=== PATIENT | male | born 1935 | race Caucasian/White ===

== ENCOUNTER → 2017-09-12 | Outpatient (CLI) | payer OTHER ==
[~2017-09-12] MED LIST: AMLO10TA3 PO; ASPI81TA28 PO; ATOR-24 PO; BILB40CA4 PO; BILB80CA PO; CALC1CAP36 PO; CARV3.122 PO; CHOL100027 PO; CRG125 PO; DOXY100C76 PO; FOLI1TAB8 PO; FURO40TA3 PO; INSU100I2 SC; INSU100I2 SQ; INSU3INJ3 SQ; INSU75IN2 SC; LSX40 PO; NRV/5 PO; SPIR25TA6 PO; VITA400C3 PO; VITACAP37 PO; WARF10TA PO; [UNRECOGNIZED DRUG - CODE] PO
--- NOTE | 2017-09-13 06:23 | PAP/PSG TECHNICIAN REPORT ---
[facility] Transportation Superintendent Polysomnogram Report Study name: None Report date: 09/13/2017 Study date: 09/12/2017 Referring Physician: Dr. Huber Name: MARIBEL BOLES Interpreting Physician: Don Campuzano M.D. Date of : 1935 Transportation Superintendent: Wendy Santos [facility]. Sex: Male Age: 82 Study Type: PSG PAP Weight: 270 lbs 18 in Height: 82 years, Height 5' 10" Neck Circum: BMI: 38.74 Medications: FUROSEMIDE 40 MG, CALCITRIOL 0.5 MCG, HUMALOG KWIKPEN 100 UNIT/ML, LEVEMIR 100 UNIT/ML, WARFARIN 10 MG, ATORVASTATIN 20 MG, COREG 6.25 MG, NORVASC 5 MG, ALDACTONE 25 MG, VIT D3 1000 UNIT, YELENA ASPIRIN 81 MG, BILBERRY 80 MG, VIT E 400 UNIT Patient History 82 yr-old male here for a BiPAP treatment study. He has a history of frequent awakenings, some insomnia, and is suspected to be having central apneas. His [place] scale is 3. The test was started on room air and 8/4 CMH2O (per the doctor's order). ETCO2 testing could not be utilized with BIPAP during this study. Room 5 Parameters Monitored NPSG: E1-M2, E2-M1, Fp1-M2, Fp2-M1, F3-M2, F4-M2, F4-M1, C3-M2, C4-M2, C4-M1, O1-M2, O2-M2, O2-M1, T3-M2, T4-M1, P3-M2, P4-M1, CHIN1, CHIN2, HR, EKG, Legs, PFLOW, SNOR, FLOW, CFLOW, Tidal Volume, THOR, ABDO, SpO2, PLTH, CPRESS, ETCO2 Wave, ETCO2, pH Sleep Architecture Sleep Stages Time at Lights Off 11:01:45 PM STAGES Time (min.) TST (%) Time at Lights On 5:29:45 AM Wake 130.0 -- Total Recording Time (TRT) 388.00 min. N1 57.5 22 Total Sleep Period (TSP) 383.5 min. N2 113.5 44 Total Sleep Time (TST) 258.0min. N3 45.0 17 Awake Time 130.0 min. REM 42.0 16 Wake after Sleep Onset 128.0 min. Sleep Efficiency (SE) 66 % Sleep Onset Latency (SALVATORE) 2.0 min. Number of Stage 1 Shifts None Awakenings 27 Stage Changes 106 Number of REM periods 2 REM 42.0 16 REM Latency 79.0 min. NREM 216.0 84 Body Position Analysis Supine Right Left Side Prone Vertical Total Sleep Time (min.) 140.0 182.5 0.0 182.52 0.0 0.0 Total Sleep Time (%) 29% 71% 0% 71 0% N/A% Total Sleep Time REM (min.) 0.0 42.0 0.0 None 0.0 0.0 Total Sleep Time NREM (min.) 75.5 140.5 0.0 None 0.0 0.0 Intermittent Wake (min.) 64.5 30.7 34.8 None 0.0 0.0 Total Sleep Period (%) 35% None None None None None Arousals Myoclonus (PLM) * Events Count Index Events Count Index Spontaneous 19 4 Events Awake (PLMW) 206 95.1 Respiratory 11 3.3 Events Asleep w/ Arousal (PLMA) 33 7.7 PLM 32 8 Events Asleep w/o Arousal (PLMS) 399 92.8 Snoring 4 1 Total Asleep 432 100.5 Total 66 15 Total 638 99 Respiratory Analysis * CA OA MA CH H RERA Total Count 12 6 0 0 13 2 31 Index 2.8 1.4 0.0 0 3.0 0 7.7 Mean Duration 11.1 17.4 0.0 0.00 20.1 18.1 16.2 Longest Duration 13.6 27.4 0.0 0.00 0.0 18.2 31.0 Respiratory Event Summary Total Supine ~Supine Right Left Prone REM NREM Apneas Count 18 12 6 6 N/A N/A 0 18 Index 4.2 10 2 2.0 N/A N/A 0 5 Hypopneas (4% Desat) Count 13 7 6 6 N/A N/A 0 13 Index 3.0 5.6 2 2.0 N/A N/A 0.0 3.6 Apneas & All Hypopneas Count 31 19 12 12 N/A N/A 0 31 Index 7.2 15 4 4 N/A N/A 0.0 8.6 Respiratory Events (Public Health Technologist+All Hyp+RERA) Count 31 21 12 12 N/A N/A 0 31 Index 7.7 17 4 3.9 N/A N/A 0.0 9.2 Respiratory Related Arousal Count 11 21 3 3 N/A N/A 0 14 Index 3.3 9 1 1 N/A N/A 0 4 Snoring Analysis Supine Right Left Prone REM NREM Total Snore duration 2.2 min Snores count 19 25 N/A N/A 4 40 44 Snore mean duration 3.1 Sec Snores index 15 8 N/A N/A 5.7 11.1 10.2 TST with snoring (%) 0.9% Desaturation Event Summary: Minimum %SpO2 Event Count Mean/Min/Max Duration(sec.) Desaturation Index % Time In Bed > 90 33 31.4 / 6.8 / 60.0 5.4 98.8 86 - 90 0 N/A 0.0 1.1 81 - 85 0 N/A 0.0 0.1 76 - 80 1 16.0 / 16.0 / 16.0 282.4 0.1 71 - 75 0 N/A 0.0 0.0 66 - 70 0 N/A 0.0 0.0 61 - 65 0 N/A 0.0 0.0 56 - 60 0 N/A 0.0 0.0 51 - 55 0 N/A 0.0 0.0 < 50 0 N/A 0.0 0.0 Total REM NREM Awake <50% 0.0 min. 0.0 min. 0.0 min. 0.0 min. 51 - 60% 0.0 min. 0.0 min. 0.0 min. 0.0 min. 61 - 70% 0.0 min. 0.0 min. 0.0 min. 0.0 min. 71 - 80% 0.2 min. 0.0 min. 0.2 min. 0.0 min. 81 - 90% 4.3 min. 2.6 min. 0.5 min. 1.2 min. 91 - 100% 367.0 min. 39.4 min. 214.7 min. 112.9 min. Average 95 93 95 97 Minimum SpO2 78 90 78 80 Desaturation Event Index 5.3 4.3 5.8 5.1 # Desat. Events below 89% 3 N/A 3 0 Time(%) with Saturation below 89% 0.2 0.0 0.1 0.1 Time(min.) with Saturation below 89% 0.8 0.0 0.3 0.5 Time (mins) REM (mins) NREM (mins) % of TST SpO2 Below 90% 7 2 N5 0.2 SpO2 Below 88% 1 0 0 0 Heart Rate Analysis Min (bpm) Max (bpm) Average (bpm) Awake 60 265 67 NREM 60 127 62 REM 60 60 60 Overall 60 127 61 Supplemental O2 Values Minimum O2 level: None Value Start Time End Time Transportation Superintendent Comments Mr. Boles slept in the right, left, and supine positions. No cardiac arrhythmias were noted. PLMs were noted. No bruxism noted. PAP initiated at an IPAP of +8 CMH2O and an EPAP of +4 CMH2O up-titrated to a level of: IPAP +11 CMH2O, EPAP +7 CMH2O. He did have central apneas; however, they were mostly sleep onset central apneas that stopped once he got to sleep. No rate was added. He used his own nasal mask during the titration. Partway through the study, he had to take the mask off because of pain under his nose. He stated that this is normal at home as well. He was then switched to an Eson 2 nasal mask size large from [employer]. He stated that this mask felt better on his nose. He awoke to use the restroom two times during the night. Mr. Boles stated that he slept better toward the end of the study. The final report will be interpreted and signed by a sleep physician. The completed physician report will then be placed in the patient medical record. CPAP REPORT Therapy Detail Time / Page # Comment BiLevel 8/4 cm H2O Nasal Mask Flex Pressure Relief Humidifier on 10:58:46 PM / pg. 323 BIPAP PER DOCTOR'S ORDER BiLevel 10/6 cm H2O Nasal Mask Flex Pressure Relief Humidifier on 11:43:23 PM / pg. 412 INCREASED IPAP FOR HYPOPNEAS AND INCREASED THE EPAP FOR OBSTRUCTIVE APNEAS BiLevel 11/7 cm H2O Nasal Mask Flex Pressure Relief Humidifier on 2:00:20 AM / pg. 686 INCREASED IPAP FOR HYPOPNEAS AND INCREASED THE EPAP FOR OBSTRUCTIVE APNEAS Therapy Event: Therapy (cm H20) 8/4 10/6 11/7 Total Time at Pressure (min.) 41.6 137.0 209.4 TST at Pressure (min.) 18.5 108.6 130.9 # Periods 1 1 1 Sleep Onset (min.) 2.0 0.4 0.0 REM Onset (min.) N/A 39.4 143.9 Sleep Efficiency % 44 79 62 Wakefulness (%) 55.6 20.7 37.5 Wakefulness (min.) 23.1 28.4 78.5 NREM 1 (%) 36.0 9.1 14.3 NREM 1 (min.) 15.0 12.5 30.0 NREM 2 (%) 8.4 37.3 28.1 NREM 2 (min.) 3.5 51.1 58.9 NREM 3 (%) 0.0 18.3 9.6 NREM 3 (min.) 0.0 25.0 20.0 REM (%) 0.0 14.6 10.5 REM (min.) 0.0 20.0 22.0 # Arousals 19 8 39 Arousal Index 61.6 4.4 17.9 # Snore 5 16 23 Snore Index 16.2 8.8 10.5 AHI 48.6 5.0 3.2 AHI Supine 41.7 60.0 7.0 AHI Non-Supine 60.0 2.9 0.0 NREM AHI 48.6 6.1 3.9 REM AHI N/A 0.0 0.0 RDI 48.6 5.0 4.1 # Obstructive 5 1 0 # Central Ap 5 4 3 # Mixed 0 0 0 # Hypopneas 5 4 4 RERAS 0 0 2 Total Respiratory Events 15 9 9 Time Below SpO2 89.00% (min.) 0.3 0.0 0.0 Mean NREM SpO2 (%) 95 95 95 Mean REM SpO2 (%) N/A 92 93 Mean Sleep SpO2 (%) 95 94 95 Min NREM SpO2 (%) 78 91 92 Min REM SpO2 (%) N/A 90 90 Position Supine (min.) 11.5 4.0 60.0 Position Non-supine (min.) 7.0 104.6 70.9 LM Index Sleep 74.6 93.4 110.0 LM Index NREM 74.6 112.4 131.1 LM Index REM N/A 9.0 5.5 Mean Heart Rate (bpm) 65 61 62 Min Heart Rate (bpm) 60 60 60
--- NOTE | 2017-09-13 08:54 | POLYSOMNOGRAPH REPORT ---
CLINICAL DATA: An 82-year-old male with BMI of 38.[address] Huber for a BiPAP titration study. He has frequent awakenings, insomnia and sleep apnea. This test was started on BIPAP 8/4. SLEEP ARCHITECTURE: Total sleep period was 383.5 minutes. Total sleep time was 258 minutes divided between 216 minutes of non-REM sleep and 42 minutes of REM sleep. Sleep onset latency was 2 minutes. REM latency was 79 minutes. Sleep efficiency was 66%. Wake after sleep onset was elevated at 128 minutes. Sleep consisted of stage N1 22%, stage N2 44%, stage III 17%, and REM 16%. AROUSAL DATA: 66 arousals recorded for an index of 15 per hour. PLM DATA: Markedly elevated limb movements during sleep were noted. There were 432 limb movements during sleep noted for an index of 100.5 per hour with arousal index of 7.7 per hour. RESPIRATORY DATA: The AHI was 7.2. There were 12 central and 6 obstructive apneic episodes. The longest duration of apnea was 27.4 seconds. There were 13 hypopneic episodes with a mean duration of 20.1 seconds. OXIMETRY DATA: Mild nocturnal hypoxemia was seen. Oxygen niesha was 78% during non-REM sleep. Mean saturation was 95%. Time below 88% was 1 minute. EKG: Heart rates ranged from 60-127 beats per minute. No arrhythmias were noted. LOCAL HAZMAT DRIVER'S COMMENTS: The patient slept in the right, left, and supine positions. Frequent PLMs were noted. The patient used his own nasal mask but then developed pain related to that and was switched to an Eson 2 nasal mask size large from [employer] which worked better. He was started on BIPAP 8/4 and was titrated up to a final pressure of BiPAP 11/7. He did have some sleep onset central apneas which resolved once he was asleep. No backup rate was necessary. At his final pressure setting of BiPAP 11/7, the patient slept for 130.9 minutes with an AHI of 3.2. IMPRESSION: Obstructive sleep apnea/hypopnea corrected with BiPAP 11/7 Eson 2 nasal mask, large from [employer]. RECOMMENDATIONS: The patient should be started on the above noted treatment regimen and seen back in followup within 90 days to document efficacy and compliance. If he continues to have sleep issues, treatment for PLMD may be of benefit. Clinical correlation is needed. MTDD
== END | disposition home or self-care (01) ==
LOC: C.NEUR 20:00
PROVIDERS: ATTEND Internal Medicine
DX: G47.33 Obstructive sleep apnea (adult) (pediatric) (principal); G47.31 Primary central sleep apnea

== ENCOUNTER 2018-10-01 05:55 | Inpatient (IN) ==
--- NOTE | 2018-10-01 06:49 | XRay Report ---
XR chest 1V portable HISTORY: 83 years-old Male Sepsis acute sepsis COMPARISON: Chest radiographs 09/28/2018, chest CT 07/22/2014 TECHNIQUE: Portable AP view of the chest FINDINGS: Cardiac silhouette is enlarged, unchanged. No overt pulmonary edema. Calcification of the thoracic ao rtic arch. Unchanged left subclavian pacer. Partially calcified nodule of the superior segment lingul a appears unchanged measuring up to 2.2 cm. Chronic blunting of left costophrenic angle with associat ed atelectasis/scarring. No pneumothorax, large pleural effusion or overt pulmonary edema. No lobar a irspace consolidation to suggest pneumonia. Degenerative changes of the shoulders and spine. IMPRESSION: 1. Cardiomegaly without overt pulmonary edema. 2. Partially calcified nodule of the lingula appears unchanged. 3. Chronic scarring/atelectasis of the left lung base. The above report was generated using voice recognition software. It may contain grammatical, syntax o r spelling errors. Electronically signed by: Philipp Rivera M.D. 10/01/2018 6:47 AM
--- NOTE | 2018-10-01 07:24 | CT Scan Report ---
CT head/brain wo con CLINICAL HISTORY: 83 years-old Male presenting with fall, facial trauma. TECHNIQUE: Multidetector CT imaging of the head was performed without the use of intravenous contrast . IV contrast: None. A dose lowering technique was used consistent with the principles of ALARA (as l ow as reasonably achievable). COMPARISON: 09/28/2018. CT DOSE (mGy.cm): The estimated cumulative dose is 1218.24. FINDINGS: Medical Transcription Supervisor topogram: Unremarkable. Proportional ventricular and sulcal prominence, likely age-related parenchymal volume loss. No hemorr bladimir. Periventricular and subcortical white matter hypoattenuation, nonspecific but likely indicative of chronic small vessel ischemic change. 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 No acute territorial infarct. No mass effect or midline shift. No extra-axial fluid collection . Paranasal sinuses and mastoid air cells clear. Calvarium grossly intact allowing for motion artifac t at the skull base. Bilateral [place] lenses are absent. IMPRESSION: 1. Chronic small vessel ischemic change. No acute intracranial abnormality. Electronically signed by: Meet Mehta M.D. 10/01/2018 7:23 AM
--- NOTE | 2018-10-01 07:36 | CT Scan Report ---
CT cervical spine wo con CT DOSE: 1218.24 mGy.cm CLINICAL HISTORY: 83 years-old Male with fall. Acute neck injury status post fall COMPARISON: CT head and facial bone studies of same day. TECHNIQUE: Multiple axial CT images of the cervical spine were obtained without contrast. A dose low ering technique was utilized adhering to the principles of ALARA. FINDINGS: Advanced degenerative changes at the C1-C2 articulation. Bones appear mildly demineralized. 3 mm ante rolisthesis C4 on C5, likely on a degenerative basis. Partial bony fusion of the C7-T1 segments. Mult ilevel spondylitic spurring with mostly moderate facet arthrosis and mild intervertebral disc space n arrowing. Multilevel posterior annular disc bulging. Evaluation of the central canal and neuroforamin a is better assessed by MRI. Multilevel neuroforaminal narrowing is noted. No definite high-grade joann tral canal stenosis. No prevertebral soft tissue swelling. Calcification noted about the carotid vasculature, notably at the level of the carotid bulbs. The bright ged lung apices appear clear. IMPRESSION: No acute cervical spine fracture or subluxation. The above report was generated using voice recognition software. It may contain grammatical, syntax o r spelling errors. Electronically signed by: Philipp Rivera M.D. 10/01/2018 7:35 AM
--- NOTE | 2018-10-01 07:43 | CT Scan Report ---
MAXILLOFACIAL CT WITHOUT CONTRAST CLINICAL HISTORY: Fall. COMPARISON STUDY: Head CT September 28, 2018. TECHNIQUE: A maxillofacial CT was performed without IV contrast. Coronal and sagittal reformats were viewed. Automated exposure control was utilized for the study. A dose lowering technique was utiliz ed adhering to the principles of ALARA. FINDINGS: A small left facial contusion is noted. There is no acute facial fracture. Alignment of the temporomandibular joints is anatomic. The globes are intact. There is no retrobulbar hematoma. Moder ate rightward deviation of the nasal septum is chronic. The orbital floors are intact. There is no sk ull base fracture. Small left maxillary sinus air-fluid level is noted. IMPRESSION: 1. No acute facial fracture. 2. Small left inferior facial contusion. 3. Small air-fluid level within the left sphenoid sinus. Electronically signed by: Rich Stoddard M.D. 10/01/2018 7:42 AM
[2018-10-01 08:03] LABS: Basophils # (auto) 0.01 K/uL (0-0.2); Basophils % (auto) 0.1 %; Eosinophils # (auto) 0.05 K/uL (0-0.5); Eosinophils % (auto) 0.4 %; Hematocrit (blood only) 38.4 % (42-52); Hemoglobin 12.9 g/dL (14.0-18.0); Immature Granulocytes # (auto) 0.19 K/uL (0.00-0.02); Immature Granulocytes % (auto) 1.5 %; Lymphocytes # (auto) 0.98 K/uL (1.2-3.4); Lymphocytes % (auto) 7.5 %; Mean Corpuscular Hgb Conc 33.6 g/dL (32-36); Mean Corpuscular Volume 95.3 fL (80-100); Mean Platelet Volume 11.1 fL (7.4-10.4); Monocytes # (auto) 0.74 K/uL (0.11-0.59); Monocytes % (auto) 5.7 %; Neutrophils # (auto) 11.03 K/uL (1.4-6.5); Neutrophils % (auto) 84.8 %; Platelet Count 169 K/uL (130-400); Red Blood Count 4.03 M/uL (4.7-6.1)
[2018-10-01] MEDS ORDERED: GELATIN SPONGE 12-7MM EXT ONE (08:04)
--- NOTE | 2018-10-01 08:06 | Emergency Department Note ---
Entered by Dillon Darden acting as a scribe for History of Present Illness General Chief complaint: Fall Time Seen by Provider: 10/01/18 06:00 Source: patient Limitations: altered mental status History of Present Illness Onset (ago): hour(s) 1 Location: head Pain Consistency: + constant Quality: + constant Associated symptoms: + other (flaling around, agitated) The patient is an 83 year old male who presents to the Emergency Room 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 Per nursing staff, the patient was found on the floor next to his bed by his . Nursing staff says the stated the patient has been more confused the past couple of days. The patient states he was sent to the hospital because his thought he had SOB. The patient denies falling and states he was not on the floor. The patient said the "rat poision" he takes causes the bruises. Nursing staff states the patient takes coumadin. The HPI is limited due to altered mental status. Per and son, the patient was seen in the ED 2 days ago. The states the patient stopped taking his medication for 3 weeks prior to going to the ED 2 days ago. The states the patient has been getting increasingly confused and depressed for a couple of months. She notes the patient sobs uncontrollably and feels like he cannot be anywhere without his . She states the patient has uncontrollable fear without his . The states the patient stopped taking his medication because he thought he wanted to . The patient was brought into the ED 2 days ago and was seen by Dr. Rayo. He was diagnosed at that time with pneumonia. He was started on antibiotics. She states the patient was doing well after his discharge until Monday after dinner. The states the patient started to getting agitated after dinner. She states her and the patient were laying in bed and the patient was flailng around in the bed. She states she went upstairs to sleep at 0030. She notes she went to check up on him at 0430 and the patient was face down on the floor. She notes she thought the patient may have been struggling to get up. She states it is very cold in the bedroom. Home Medications Home Medications Medication Instructions Recorded Confirmed Type amlodipine 5 mg PO DAILY 08/20/18 10/01/18 History aspirin [Aspir-81] 81 mg PO DAILY 08/20/18 10/01/18 History carvedilol 12.5 mg PO BID 08/20/18 10/01/18 History cholecalciferol (vitamin D3) 1,000 unit PO DAILY 08/20/18 10/01/18 History [Vitamin D3] folic acid 5 mg PO DAILY 08/20/18 10/01/18 History furosemide 80 mg PO BID 08/20/18 10/01/18 History insulin detemir U-100 [Levemir 25 units SUBCUT AMHS 08/20/18 10/01/18 History FlexTouch U-100 Insuln] insulin lispro [Humalog KwikPen 0 unit SUBCUT UD 08/20/18 10/01/18 History Insulin] spironolactone 12.5 mg PO DAILY 08/20/18 10/01/18 History warfarin 10 mg PO DAILY 08/20/18 10/01/18 History doxycycline hyclate 100 mg PO BID 10 Days #20 tab 09/28/18 10/01/18 Rx escitalopram oxalate 20 mg PO DAILY 09/28/18 10/01/18 History atorvastatin 20 mg PO HS 10/01/18 10/01/18 History calcitriol 0.5 mcg PO MOWEFR 10/01/18 10/01/18 History Allergies Allergy/AdvReac Type Severity Reaction Status Date / Time Beta-Blockers Allergy Unknown abd cramps Verified 10/01/18 06:41 (Beta-Adrenergic Bloc zolpidem AdvReac Intermediate confusion Unverified 10/01/18 06:41 mometasone furoate AdvReac Unknown DISORIENTED Unverified 10/01/18 06:41 Past Med/Surg History Medical History T2DM (type 2 diabetes mellitus) CKD stage 4 due to type 2 diabetes mellitus Atrial fibrillation Hypertension Dyslipidemia Obstructive sleep apnea Ischemic cardiomyopathy Coronary artery disease Congestive heart failure (Acute) Surgical History History of excision of pilonidal cyst History of pacemaker History of appendectomy History of tonsillectomy and adenoidectomy History of cataract surgery Social History marital status: Current Living Situation: Spouse current occupational status: retired Other Information That Helps Us Care for You: No Feels Safe at Home: Yes Smoking Status: Former smoker Years Smoked: 27 Cigarettes per Day: 3 ppd Do You Dip or Chew Tobacco: No Smoking End Date: 1977 Hx Alcohol Use: Yes Alcohol type: beer Alcohol Intake Frequency: holidays/ special occasions only Hx Substance Use: No Beliefs That Will Affect Care: None Preferred Language: Mozambican Review of Systems See HPI for pertinent positives & negatives. and A total of 10 systems reviewed and were otherwise negative Physical Exam Vital Signs Vital Signs - 24 hr 10/01/18 05:52 10/01/18 06:10 10/01/18 06:26 Temperature 32.6 C L Temperature Source Rectal Sepsis Recent Fever Within 48 Hours No Sepsis Action Taken by Nursing No Action Required Pulse Rate 76 Pulse Rate [Apical] Pulse Rate [Right Finger] Pulse Rhythm [Apical] Pulse Rhythm [Right Finger] Pulse Strength [Right Finger] Respiratory Rate 16 Respiratory Effort / Characteristics Normal for Patient Respiratory Depth Respiratory Pattern Blood Pressure 176/86 H Blood Pressure [Left Arm] Blood Pressure [Right Arm] Blood Pressure Mean 116 Blood Pressure Mean [Left Arm] Blood Pressure Mean [Right Arm] Blood Pressure Position Lying Blood Pressure Position [Left Arm] Blood Pressure Position [Right Arm] Pulse Oximetry 95 96 96 Oxygen Delivery Method Room Air Room Air Room Air 10/01/18 07:11 10/01/18 07:37 10/01/18 07:45 Temperature Temperature Source Sepsis Recent Fever Within 48 Hours Sepsis Action Taken by Nursing Pulse Rate Pulse Rate [Apical] 76 62 67 Pulse Rate [Right Finger] Pulse Rhythm [Apical] Regular Regular Regular Pulse Rhythm [Right Finger] Pulse Strength [Right Finger] Respiratory Rate 17 14 20 Respiratory Effort / Characteristics Non-Labored Non-Labored Non-Labored Respiratory Depth Normal Normal Normal Respiratory Pattern Regular Regular Regular Blood Pressure Blood Pressure [Left Arm] 183/104 H 167/89 H 177/80 H Blood Pressure [Right Arm] Blood Pressure Mean Blood Pressure Mean [Left Arm] 130 115 112 Blood Pressure Mean [Right Arm] Blood Pressure Position Blood Pressure Position [Left Arm] Lying Sitting Sitting Blood Pressure Position [Right Arm] Pulse Oximetry 95 96 97 Oxygen Delivery Method Room Air Room Air Room Air 10/01/18 08:00 10/01/18 08:01 10/01/18 08:15 Temperature Temperature Source Sepsis Recent Fever Within 48 Hours Sepsis Action Taken by Nursing Pulse Rate 71 64 65 Pulse Rate [Apical] Pulse Rate [Right Finger] Pulse Rhythm [Apical] Pulse Rhythm [Right Finger] Pulse Strength [Right Finger] Respiratory Rate 25 H 22 18 Respiratory Effort / Characteristics Respiratory Depth Respiratory Pattern Blood Pressure 131/93 Blood Pressure [Left Arm] Blood Pressure [Right Arm] Blood Pressure Mean 105 Blood Pressure Mean [Left Arm] Blood Pressure Mean [Right Arm] Blood Pressure Position Blood Pressure Position [Left Arm] Blood Pressure Position [Right Arm] Pulse Oximetry 96 95 96 Oxygen Delivery Method 10/01/18 08:17 10/01/18 08:30 10/01/18 08:45 Temperature 34.8 C L Temperature Source Rectal Sepsis Recent Fever Within 48 Hours Sepsis Action Taken by Nursing Pulse Rate 74 64 60 Pulse Rate [Apical] 60 Pulse Rate [Right Finger] Pulse Rhythm [Apical] Regular Pulse Rhythm [Right Finger] Pulse Strength [Right Finger] Respiratory Rate 23 21 16 Respiratory Effort / Characteristics Non-Labored Respiratory Depth Normal Respiratory Pattern Regular Blood Pressure 123/76 165/85 H Blood Pressure [Left Arm] 165/85 H Blood Pressure [Right Arm] Blood Pressure Mean 91 111 Blood Pressure Mean [Left Arm] 111 Blood Pressure Mean [Right Arm] Blood Pressure Position Blood Pressure Position [Left Arm] Sitting Blood Pressure Position [Right Arm] Pulse Oximetry 96 97 95 Oxygen Delivery Method Room Air 10/01/18 08:46 10/01/18 09:00 10/01/18 09:15 Temperature Temperature Source Sepsis Recent Fever Within 48 Hours Sepsis Action Taken by Nursing Pulse Rate 60 61 62 Pulse Rate [Apical] Pulse Rate [Right Finger] Pulse Rhythm [Apical] Pulse Rhythm [Right Finger] Pulse Strength [Right Finger] Respiratory Rate 20 15 14 Respiratory Effort / Characteristics Respiratory Depth Respiratory Pattern Blood Pressure 130/89 153/72 H Blood Pressure [Left Arm] Blood Pressure [Right Arm] Blood Pressure Mean 102 99 Blood Pressure Mean [Left Arm] Blood Pressure Mean [Right Arm] Blood Pressure Position Blood Pressure Position [Left Arm] Blood Pressure Position [Right Arm] Pulse Oximetry 94 93 95 Oxygen Delivery Method 10/01/18 09:16 10/01/18 09:30 10/01/18 09:31 Temperature Temperature Source Sepsis Recent Fever Within 48 Hours Sepsis Action Taken by Nursing Pulse Rate 62 80 71 Pulse Rate [Apical] Pulse Rate [Right Finger] Pulse Rhythm [Apical] Pulse Rhythm [Right Finger] Pulse Strength [Right Finger] Respiratory Rate 15 18 15 Respiratory Effort / Characteristics Respiratory Depth Respiratory Pattern Blood Pressure 147/73 H 131/88 Blood Pressure [Left Arm] Blood Pressure [Right Arm] Blood Pressure Mean 97 102 Blood Pressure Mean [Left Arm] Blood Pressure Mean [Right Arm] Blood Pressure Position Blood Pressure Position [Left Arm] Blood Pressure Position [Right Arm] Pulse Oximetry 92 95 93 Oxygen Delivery Method 10/01/18 09:45 10/01/18 10:00 10/01/18 10:15 Temperature Temperature Source Sepsis Recent Fever Within 48 Hours Sepsis Action Taken by Nursing Pulse Rate 63 63 68 Pulse Rate [Apical] Pulse Rate [Right Finger] Pulse Rhythm [Apical] Pulse Rhythm [Right Finger] Pulse Strength [Right Finger] Respiratory Rate 14 23 18 Respiratory Effort / Characteristics Respiratory Depth Respiratory Pattern Blood Pressure 144/63 H 136/65 137/80 Blood Pressure [Left Arm] Blood Pressure [Right Arm] Blood Pressure Mean 90 88 99 Blood Pressure Mean [Left Arm] Blood Pressure Mean [Right Arm] Blood Pressure Position Blood Pressure Position [Left Arm] Blood Pressure Position [Right Arm] Pulse Oximetry 93 98 98 Oxygen Delivery Method 10/01/18 10:17 10/01/18 10:20 10/01/18 10:30 Temperature 36.4 C L Temperature Source Sepsis Recent Fever Within 48 Hours Sepsis Action Taken by Nursing Pulse Rate 66 64 60 Pulse Rate [Apical] Pulse Rate [Right Finger] Pulse Rhythm [Apical] Pulse Rhythm [Right Finger] Pulse Strength [Right Finger] Respiratory Rate 25 H 22 19 Respiratory Effort / Characteristics Respiratory Depth Respiratory Pattern Blood Pressure 163/72 H Blood Pressure [Left Arm] Blood Pressure [Right Arm] Blood Pressure Mean 102 Blood Pressure Mean [Left Arm] Blood Pressure Mean [Right Arm] Blood Pressure Position Blood Pressure Position [Left Arm] Blood Pressure Position [Right Arm] Pulse Oximetry 98 97 98 Oxygen Delivery Method 10/01/18 10:32 10/01/18 10:40 10/01/18 10:45 Temperature Temperature Source Sepsis Recent Fever Within 48 Hours Sepsis Action Taken by Nursing Pulse Rate 60 60 60 Pulse Rate [Apical] Pulse Rate [Right Finger] Pulse Rhythm [Apical] Pulse Rhythm [Right Finger] Pulse Strength [Right Finger] Respiratory Rate 18 18 15 Respiratory Effort / Characteristics Respiratory Depth Respiratory Pattern Blood Pressure 145/72 H Blood Pressure [Left Arm] Blood Pressure [Right Arm] Blood Pressure Mean 96 Blood Pressure Mean [Left Arm] Blood Pressure Mean [Right Arm] Blood Pressure Position Blood Pressure Position [Left Arm] Blood Pressure Position [Right Arm] Pulse Oximetry 98 98 97 Oxygen Delivery Method 10/01/18 10:50 10/01/18 10:57 10/01/18 11:30 Temperature 36.2 C L Temperature Source Oral Sepsis Recent Fever Within 48 Hours Sepsis Action Taken by Nursing Pulse Rate 60 Pulse Rate [Apical] Pulse Rate [Right Finger] 62 Pulse Rhythm [Apical] Pulse Rhythm [Right Finger] Regular Pulse Strength [Right Finger] Normal Respiratory Rate 15 12 Respiratory Effort / Characteristics Non-Labored Respiratory Depth Normal Respiratory Pattern Regular Blood Pressure Blood Pressure [Left Arm] 159/75 H Blood Pressure [Right Arm] Blood Pressure Mean Blood Pressure Mean [Left Arm] 103 Blood Pressure Mean [Right Arm] Blood Pressure Position Blood Pressure Position [Left Arm] Lying Blood Pressure Position [Right Arm] Pulse Oximetry 97 97 Oxygen Delivery Method Room Air Room Air 10/01/18 12:00 10/01/18 12:12 10/01/18 16:02 Temperature 36.3 C L 36.9 C Temperature Source Oral Oral Sepsis Recent Fever Within 48 Hours Sepsis Action Taken by Nursing Pulse Rate Pulse Rate [Apical] Pulse Rate [Right Finger] 67 Pulse Rhythm [Apical] Pulse Rhythm [Right Finger] Pulse Strength [Right Finger] Respiratory Rate 20 Respiratory Effort / Characteristics Respiratory Depth Respiratory Pattern Regular Blood Pressure Blood Pressure [Left Arm] Blood Pressure [Right Arm] 139/66 Blood Pressure Mean Blood Pressure Mean [Left Arm] Blood Pressure Mean [Right Arm] 90 Blood Pressure Position Blood Pressure Position [Left Arm] Blood Pressure Position [Right Arm] Lying Pulse Oximetry 96 Oxygen Delivery Method Room Air Room Air HEENT: Head - normocephalic and atraumatic. Pupils are equal, round, and reactive to light. Extraocular eye muscles are intact and sclera are anicteric. Abrasion to nose. Edema to left lower lip. has Ears - bilaterally patent canals with no evidence of hemotympanum. Abrasion to left side of face. Has petechiae and contusions to face. Nose - moist nasal mucosa without evidence of discharge. There is an abrasion to the tip of the nose mouth - moist buccal mucosa with no trauma to the teeth or signs of malocclusion. There is a hematoma to the left lower lip Neck: The neck is supple and there is no pain to palpation over the posterior cervical spine and no obvious step-offs or deformities. There is no JVD or tracheal deviation. Chest: There are no signs of deformities or abrasions to the chest wall. There is no obvious crepitus or paradoxical chest rise. Contusion to anterior chest wall. Heart: Regular, rate, and rhythm. There is a normal S1 and S2 with no murmurs, clicks, or gallops appreciated. Lungs: Clear to auscultation bilaterally with no wheezes, rales, or rhonchi. Abdomen: Soft, distended, completely nontender with good bowel sounds. There is no sign of trauma such as contusions, abrasions or penetrations. There are no palpable pulsatile masses or hepatosplenomegaly. There is no guarding, rigidity, or rebound noted. Pelvis: Stable to rock and compression. Extremities: There are easily palpable peripheral pulses. Old abrasions to shins. New skin tear to left dumont. Multiple skin tears to both upper extremities. Large contusion to right shoulder. Neuro: The patient is awake and alert but seems slightly confused. Muscle strength is 5 out of 5 in all 4 extremities. Otherwise, neuro exam is unremarkable. Back: The entire thoracic, lumbar, and sacral spine were palpated. There are no obvious step-offs or deformities noted. There are no obvious signs of trauma such as contusions abrasions penetrations noted to the back. Skin: very cold to the touch. Course 0602: Past medical records reviewed. The patient was evaluated in room C6, and a complete history and physical examination were performed. A 12-lead EKG was obtained. A chest x-ray was ordered. 0622: Nursing staff reports the patient's temperature was 32.6. A luis hugger was placed in the wounds about his arms were cleansed and dressed. A septic protocol was ordered. The patient will go for CT scan of the facial bones and brain 0720: I went back to the room to evaluate the patient and he was returning from CAT scan. I discussed the case at length with the patient's son and the patient 's who were able to add much more details. 0730: The patient was complaining of right wrist pain to the nursing staff and an x-ray was ordered. 0735: The case was discussed with Dr. vallecillo and signed out to him at change of shift awaiting x-rays and CT scans. Administered Medications Calcitriol (Racaltrol) 0.5 mcg PO [id number] [facility] Stop: 10/31/18 12:14 Last Admin: 10/01/18 13:17 Dose: 0.5 mcg Furosemide (Lasix) 80 mg PO BID17 [facility] Stop: 10/31/18 16:59 Last Admin: 10/01/18 17:41 Dose: 80 mg Piperacillin Sod/Tazobactam (Sod 4.5 gm/ Dextrose) 120 mls @ 30 mls/hr IV Q8H [facility]; Protocol Stop: 10/03/18 12:14 Last Admin: 10/01/18 17:53 Dose: 30 mls/hr Insulin Aspart (Novolog Flexpen) 0 units SC ACHS [facility] Stop: 10/31/18 11:44 Last Admin: 10/01/18 17:42 Dose: 9 units Admin: 10/01/18 13:16 Dose: Not Given Discontinued Medications Dextrose (Dextrose 50%) Confirm Administered Dose 50 ml IV .STK-MED ONE Stop: 10/01/18 08:45 Last Admin: 10/01/18 08:54 Dose: Not Given Dextrose (Dextrose 50%) 50 ml IV NOW ONE Stop: 10/01/18 08:51 Last Admin: 10/01/18 08:53 Dose: 50 ml Doxycycline Hyclate (Vibramycin) 100 mg PO BID [facility] Stop: 10/08/18 12:14 Last Admin: 10/01/18 13:17 Dose: 100 mg Gelatin (Surgifoam Sponge 12-7mm (Small)) 1 ea EXT NOW ONE Stop: 10/01/18 08:05 Last Admin: 10/01/18 08:33 Dose: 4 ea Piperacillin Sod/Tazobactam (Sod 4.5 gm/ Dextrose) 120 mls @ 200 mls/hr IV NOW ONE; Protocol Stop: 10/01/18 12:50 Last Infusion: 10/01/18 13:55 Dose: 0 mls/hr Admin: 10/01/18 13:17 Dose: 200 mls/hr Medical Decision Making Differential Diagnosis The patient is an 83 year old male who presents to the Emergency Room 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 Differential Diagnosis: rhabdomyolysis, intracranial hemorrhage, hypothermia, sepsis, and hyperglycemia. Medical Records Attestation: I reviewed the patient's medical records. Home Medications Current Medication List: was personally reviewed by me Laboratory Data Attestation: I reviewed the patient's lab results. Result diagrams: 10/01/18 07:48 10/01/18 07:48 Lab Results 10/01/18 10/01/18 10/01/18 Range/Units 07:48 07:48 07:48 WBC 13.00 H (4.8-10.8) K/uL RBC 4.03 L (4.7-6.1) M/uL Hgb 12.9 L (14.0-18.0) g/dL Hct 38.4 L (42-52) % MCV 95.3 (80-100) fL MCH 32.0 (25-34) pg MCHC 33.6 (32-36) g/dL RDW Std Deviation 63.0 H (36.4-46.3) fL RDW Coeff of Nadege 18.0 H (11.5-14.5) % Plt Count 169 (130-400) K/uL MPV 11.1 H (7.4-10.4) fL Immature Gran % (Auto) 1.5 % Neut % (Auto) 84.8 % Lymph % (Auto) 7.5 % Geary % (Auto) 5.7 % Eos % (Auto) 0.4 % Baso % (Auto) 0.1 % Immature Gran # (Auto) 0.19 H (0.00-0.02) K/uL Neut # (Auto) 11.03 H (1.4-6.5) K/uL Lymph # (Auto) 0.98 L (1.2-3.4) K/uL Geary # (Auto) 0.74 H (0.11-0.59) K/uL Eos # (Auto) 0.05 (0-0.5) K/uL Baso # (Auto) 0.01 (0-0.2) K/uL PT 18.1 H (9.0-12.0) Seconds INR 1.9 H (0.9-1.1) Sodium 138 (136-145) mmol/L Potassium 3.9 (3.5-5.1) mmol/L Chloride 103 (98-107) mmol/L Carbon Dioxide 23 (21-32) mmol/L Anion Gap 12.0 H (3-11) BUN 41 H (7-18) mg/dl Creatinine 2.04 H (0.6-1.4) mg/dl Est Cr Clr Drug Dosing 35.6 ml/min Est GFR ( Amer) 34.2 Est GFR (Non-Af Amer) 29.5 BUN/Creatinine Ratio 19.9 (10-20) Glucose 50 L* (70-99) mg/dl POC Glucose (70-99) Lactate (0.4-2.0) mmol/L Calcium 8.7 (8.5-10.1) mg/dl Total Bilirubin 0.9 (0.2-1) mg/dl AST 21 (15-37) U/L ALT 22 (12-78) U/L Alkaline Phosphatase 66 (45-117) U/L Total Creatine Kinase 72 (39-308) U/L Troponin I < 0.015 (0-0.045) ng/ml Total Protein 7.3 (6.4-8.2) gm/dl Albumin 3.2 L (3.4-5.0) gm/dl Globulin 4.1 H (2.5-4.0) gm/dl Albumin/Globulin Ratio 0.8 L (0.9-2) Procalcitonin (0-0.5) ng/ml TSH (0.300-4.500) uIu/ml Urine Color Urine Appearance (Clear) Urine pH (4.5-7.5) Ur Specific Magnolia (1.000-1.030) Urine Protein (Negative) Urine Glucose (UA) (Negative) Urine Ketones (Negative) Urine Blood (Negative) Urine Nitrite (Negative) Urine Bilirubin (Negative) Urine Urobilinogen (Negative) Ur Leukocyte Esterase (Negative) Urine WBC (Auto) (0-5) /hpf Urine RBC (Auto) (0-4) /hpf U Hyaline Cast (Auto) (0-5) /lpf U Epithel Cells (Auto) (0-5) /lpf Urine Bacteria (Auto) (Negative) 10/01/18 10/01/18 10/01/18 Range/Units 07:48 07:48 07:48 WBC (4.8-10.8) K/uL RBC (4.7-6.1) M/uL Hgb (14.0-18.0) g/dL Hct (42-52) % MCV (80-100) fL MCH (25-34) pg MCHC (32-36) g/dL RDW Std Deviation (36.4-46.3) fL RDW Coeff of Nadege (11.5-14.5) % Plt Count (130-400) K/uL MPV (7.4-10.4) fL Immature Gran % (Auto) % Neut % (Auto) % Lymph % (Auto) % Geary % (Auto) % Eos % (Auto) % Baso % (Auto) % Immature Gran # (Auto) (0.00-0.02) K/uL Neut # (Auto) (1.4-6.5) K/uL Lymph # (Auto) (1.2-3.4) K/uL Geary # (Auto) (0.11-0.59) K/uL Eos # (Auto) (0-0.5) K/uL Baso # (Auto) (0-0.2) K/uL PT (9.0-12.0) Seconds INR (0.9-1.1) Sodium (136-145) mmol/L Potassium (3.5-5.1) mmol/L Chloride (98-107) mmol/L Carbon Dioxide (21-32) mmol/L Anion Gap (3-11) BUN (7-18) mg/dl Creatinine (0.6-1.4) mg/dl Est Cr Clr Drug Dosing ml/min Est GFR ( Amer) Est GFR (Non-Af Amer) BUN/Creatinine Ratio (10-20) Glucose (70-99) mg/dl POC Glucose (70-99) Lactate 1.1 (0.4-2.0) mmol/L Calcium (8.5-10.1) mg/dl Total Bilirubin (0.2-1) mg/dl AST (15-37) U/L ALT (12-78) U/L Alkaline Phosphatase (45-117) U/L Total Creatine Kinase (39-308) U/L Troponin I (0-0.045) ng/ml Total Protein (6.4-8.2) gm/dl Albumin (3.4-5.0) gm/dl Globulin (2.5-4.0) gm/dl Albumin/Globulin Ratio (0.9-2) Procalcitonin 0.12 (0-0.5) ng/ml TSH 3.080 (0.300-4.500) uIu/ml Urine Color Urine Appearance (Clear) Urine pH (4.5-7.5) Ur Specific Magnolia (1.000-1.030) Urine Protein (Negative) Urine Glucose (UA) (Negative) Urine Ketones (Negative) Urine Blood (Negative) Urine Nitrite (Negative) Urine Bilirubin (Negative) Urine Urobilinogen (Negative) Ur Leukocyte Esterase (Negative) Urine WBC (Auto) (0-5) /hpf Urine RBC (Auto) (0-4) /hpf U Hyaline Cast (Auto) (0-5) /lpf U Epithel Cells (Auto) (0-5) /lpf Urine Bacteria (Auto) (Negative) 10/01/18 10/01/18 10/01/18 Range/Units 08:03 09:10 11:54 WBC (4.8-10.8) K/uL RBC (4.7-6.1) M/uL Hgb (14.0-18.0) g/dL Hct (42-52) % MCV (80-100) fL MCH (25-34) pg MCHC (32-36) g/dL RDW Std Deviation (36.4-46.3) fL RDW Coeff of Nadege (11.5-14.5) % Plt Count (130-400) K/uL MPV (7.4-10.4) fL Immature Gran % (Auto) % Neut % (Auto) % Lymph % (Auto) % Geary % (Auto) % Eos % (Auto) % Baso % (Auto) % Immature Gran # (Auto) (0.00-0.02) K/uL Neut # (Auto) (1.4-6.5) K/uL Lymph # (Auto) (1.2-3.4) K/uL Geary # (Auto) (0.11-0.59) K/uL Eos # (Auto) (0-0.5) K/uL Baso # (Auto) (0-0.2) K/uL PT (9.0-12.0) Seconds INR (0.9-1.1) Sodium (136-145) mmol/L Potassium (3.5-5.1) mmol/L Chloride (98-107) mmol/L Carbon Dioxide (21-32) mmol/L Anion Gap (3-11) BUN (7-18) mg/dl Creatinine (0.6-1.4) mg/dl Est Cr Clr Drug Dosing ml/min Est GFR ( Amer) Est GFR (Non-Af Amer) BUN/Creatinine Ratio (10-20) Glucose (70-99) mg/dl POC Glucose 145 H 75 (70-99) Lactate (0.4-2.0) mmol/L Calcium (8.5-10.1) mg/dl Total Bilirubin (0.2-1) mg/dl AST (15-37) U/L ALT (12-78) U/L Alkaline Phosphatase (45-117) U/L Total Creatine Kinase (39-308) U/L Troponin I (0-0.045) ng/ml Total Protein (6.4-8.2) gm/dl Albumin (3.4-5.0) gm/dl Globulin (2.5-4.0) gm/dl Albumin/Globulin Ratio (0.9-2) Procalcitonin (0-0.5) ng/ml TSH (0.300-4.500) uIu/ml Urine Color Yellow Urine Appearance Clear (Clear) Urine pH 5.0 (4.5-7.5) Ur Specific Magnolia 1.014 (1.000-1.030) Urine Protein 2+ H (Negative) Urine Glucose (UA) Negative (Negative) Urine Ketones Negative (Negative) Urine Blood 1+ H (Negative) Urine Nitrite Negative (Negative) Urine Bilirubin Negative (Negative) Urine Urobilinogen Negative (Negative) Ur Leukocyte Esterase Negative (Negative) Urine WBC (Auto) 1-5 (0-5) /hpf Urine RBC (Auto) 0-4 (0-4) /hpf U Hyaline Cast (Auto) 1-5 (0-5) /lpf U Epithel Cells (Auto) 0-5 (0-5) /lpf Urine Bacteria (Auto) Negative (Negative) 10/01/18 Range/Units 16:40 WBC (4.8-10.8) K/uL RBC (4.7-6.1) M/uL Hgb (14.0-18.0) g/dL Hct (42-52) % MCV (80-100) fL MCH (25-34) pg MCHC (32-36) g/dL RDW Std Deviation (36.4-46.3) fL RDW Coeff of Nadege (11.5-14.5) % Plt Count (130-400) K/uL MPV (7.4-10.4) fL Immature Gran % (Auto) % Neut % (Auto) % Lymph % (Auto) % Geary % (Auto) % Eos % (Auto) % Baso % (Auto) % Immature Gran # (Auto) (0.00-0.02) K/uL Neut # (Auto) (1.4-6.5) K/uL Lymph # (Auto) (1.2-3.4) K/uL Geary # (Auto) (0.11-0.59) K/uL Eos # (Auto) (0-0.5) K/uL Baso # (Auto) (0-0.2) K/uL PT (9.0-12.0) Seconds INR (0.9-1.1) Sodium (136-145) mmol/L Potassium (3.5-5.1) mmol/L Chloride (98-107) mmol/L Carbon Dioxide (21-32) mmol/L Anion Gap (3-11) BUN (7-18) mg/dl Creatinine (0.6-1.4) mg/dl Est Cr Clr Drug Dosing ml/min Est GFR ( Amer) Est GFR (Non-Af Amer) BUN/Creatinine Ratio (10-20) Glucose (70-99) mg/dl POC Glucose 135 H (70-99) Lactate (0.4-2.0) mmol/L Calcium (8.5-10.1) mg/dl Total Bilirubin (0.2-1) mg/dl AST (15-37) U/L ALT (12-78) U/L Alkaline Phosphatase (45-117) U/L Total Creatine Kinase (39-308) U/L Troponin I (0-0.045) ng/ml Total Protein (6.4-8.2) gm/dl Albumin (3.4-5.0) gm/dl Globulin (2.5-4.0) gm/dl Albumin/Globulin Ratio (0.9-2) Procalcitonin (0-0.5) ng/ml TSH (0.300-4.500) uIu/ml Urine Color Urine Appearance (Clear) Urine pH (4.5-7.5) Ur Specific [place] (1.000-1.030) Urine Protein (Negative) Urine Glucose (UA) (Negative) Urine Ketones (Negative) Urine Blood (Negative) Urine Nitrite (Negative) Urine Bilirubin (Negative) Urine Urobilinogen (Negative) Ur Leukocyte Esterase (Negative) Urine WBC (Auto) (0-5) /hpf Urine RBC (Auto) (0-4) /hpf U Hyaline Cast (Auto) (0-5) /lpf U Epithel Cells (Auto) (0-5) /lpf Urine Bacteria (Auto) (Negative) Imaging Data Radiologist's Impression: Radiology results as stated below per my review and the radiologist's interpretation: XR chest 1V portable HISTORY: 83 years-old Male Sepsis acute sepsis COMPARISON: Chest radiographs 09/28/2018, chest CT 07/22/2014 TECHNIQUE: Portable AP view of the chest FINDINGS: Cardiac silhouette is enlarged, unchanged. No overt pulmonary edema. Calcification of the thoracic aortic arch. Unchanged left subclavian pacer. Partially calcified nodule of the superior segment lingula appears unchanged measuring up to 2.2 cm. Chronic blunting of left costophrenic angle with associated atelectasis/scarring. No pneumothorax, large pleural effusion or overt pulmonary edema. No lobar airspace consolidation to suggest pneumonia. Degenerative changes of the shoulders and spine. IMPRESSION: 1. Cardiomegaly without overt pulmonary edema. 2. Partially calcified nodule of the lingula appears unchanged. 3. Chronic scarring/atelectasis of the left lung base. The above report was generated using voice recognition software. It may contain grammatical, syntax or spelling errors. Electronically signed by: Philipp Rivera M.D. 10/01/2018 6:[address] head/brain wo con CLINICAL HISTORY: 83 years-old Male presenting with fall, facial trauma. TECHNIQUE: Multidetector CT imaging of the head was performed without the use of intravenous contrast. IV contrast: None. A dose lowering technique was used consistent with the principles of ALARA (as low as reasonably achievable). COMPARISON: 09/28/2018. CT DOSE (mGy.cm): The estimated cumulative dose is 1218.24. FINDINGS: Stud Setter topogram: Unremarkable. Proportional ventricular and sulcal prominence, likely age-related parenchymal volume loss. No hemorrhage. Periventricular and subcortical white matter hypoattenuation, nonspecific but likely indicative of chronic small vessel ischemic change. Several old lacunar infarcts suggested in the left basal ganglia. No acute territorial infarct. No mass effect or midline shift. No extra -axial fluid collection. Paranasal sinuses and mastoid air cells clear. Calvarium grossly intact allowing for motion artifact at the skull base. Bilateral [place] lenses are absent. IMPRESSION: 1. Chronic small vessel ischemic change. No acute intracranial abnormality. Electronically signed by: Meet Mehta M.D. 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 The patient was found by his laying face down next to the bed. Last time she saw him was approximately 4 hours prior. The patient was extremely hypothermic. He remains slightly confused. He will go for CT scan of the brain and facial bones to rule out trauma. The patient was hypothermic and began rewarming with a bear hugger. The patient was signed out to Dr. Vallecillo at change of shift awaiting laboratory studies, CT results and x-ray of the wrist. So far, EKG was unremarkable and vital signs were stable. Wounds/skin tears about his arms and legs were cleansed and dressed. A bear hugger was placed because of the hypothermia. We are awaiting laboratory studies and CT/x-ray results. Impression & Plan Fall, Hypothermia The case was signed out to Dr. Vallecillo awaiting final disposition. Discharge Plan Visit Data *Final* Discharge Date/Time: 10/01/18 10:57 Chief Complaint: Fall ED Provider: Ran Vallecillo Discharge Problem: Fall, Hypothermia Patient Disposition: Admitted As Inpatient Discharge Instructions Interventions: ED Discharge Assessment Last Done: 10/01/18 10:57 The scribe's documentation has been prepared under my direction and personally reviewed by me in its entirety. I confirm that the note above accurately reflects all work, treatment, procedures, and medical decision making performed by me.
[2018-10-01 08:10] LABS: INR 1.9 (0.9-1.1); Prothrombin Time 18.1 Seconds (9.0-12.0)
--- NOTE | 2018-10-01 08:10 | XRay Report ---
XR wrist RT min 3V routine CLINICAL HISTORY: Right wrist pain following fall. COMPARISON: None FINDINGS: Alignment of the right wrist is anatomic. No acute fracture is identified. There is mild a rthritis within several articulations of the right wrist. IMPRESSION: No acute fracture or dislocation within the right wrist. Electronically signed by: Rich Stoddard M.D. 10/01/2018 8:09 AM
--- NOTE | 2018-10-01 08:11 | Emergency Department Note ---
ED Visit Note The patient was taken in signout from Dr. Burns at the change of shift. Please see that note for details. The patient presents emergency department after being found down by his within a 4-hour interval of last being seen. Arrives with scattered ecchymosis of the face as well as with ecchymosis of bilateral arms with numerous skin tears. He is hypothermic to 32.6 with vital signs otherwise stable and mental status is at recent baseline. CT head negative for ICH. EKG v-paced. The patient was pending lab work for planned admission. Glucose 50s, with D50 ordered. WBC 13, nonspecific. Creatinine 2.0 at patient' s baseline CKD. Chest x-ray without acute process. Lactate wnl. INR 1.9. Troponin negative. UA pending. CT face and Cspine negative for fx. 0856: d/w Dr. Zavala, [place] [facility] who will evaluate the patient for admission. will defer antibiotics at this time until admitting team evaluation given no clear source, and patient is warming on bear hugger to 34.8. .
[2018-10-01 08:23] LABS: Alanine Aminotransferase 22 U/L (12-78); Albumin Level 3.2 gm/dl (3.4-5.0); Aspartate Aminotransferase 21 U/L (15-37); BUN Creatinine Ratio 19.9 (10-20); Blood Urea Nitrogen 41 mg/dl (7-18); Calcium 8.7 mg/dl (8.5-10.1); Carbon Dioxide 23 mmol/L (21-32); Chloride 103 mmol/L (98-107); Creatinine Clr Calc Pharmacy 35.6 ml/min; Est GFR (African American) 34.2; Est GFR (Non-African American) 29.5; Glucose 50 mg/dl (70-99); Potassium 3.9 mmol/L (3.5-5.1); Sodium 138 mmol/L (136-145)
[2018-10-01 08:24] LABS: Albumin Globulin Ratio 0.8 (0.9-2); Alkaline Phosphatase 66 U/L (45-117); Bilirubin,Total 0.9 mg/dl (0.2-1); Creatine Kinase 72 U/L (39-308); Globulin 4.1 gm/dl (2.5-4.0); Total Protein 7.3 gm/dl (6.4-8.2); Troponin I < 0.015 ng/ml (0-0.045)
[2018-10-01] MEDS ORDERED: DEXTROSE 50% 50 ML SYRINGE IV ONE ×2 (08:44→08:50)
[2018-10-01 09:54] LABS: Appearance Urine Clear (Clear); Bacteria Urine Automated Negative (Negative); Bilirubin Urine Negative (Negative); Color Urine Yellow; Epithelial Cell Urine Auto 0-5 /lpf (0-5); Glucose Urine UA Negative (Negative); Ketones Urine Negative (Negative); Leukocyte Esterase Urine Negative (Negative); Nitrite Urine Negative (Negative); Protein Urine 2+ (Negative); Specific Gravity Urine 1.014 (1.000-1.030); Urobilinogen Urine Negative (Negative)
--- NOTE | 2018-10-01 11:06 | History & Physical Report ---
Date of Service October 01, 2018 Assessment & Plan (1) Altered mental status: This is an 83-year-old male with significant past medical history of chronic atrial fibrillation on warfarin, T2 DM, HTN, HLD, MARLON not tolerant to CPAP, CKD stage IV, sinus node dysfunction status post permanent pacemaker, history of congestive heart failure, pulmonary hamartoma who presents to secondary to being found on floor at 4 AM by and son. In ED initial evaluation was significant for hypothermia, temp 32.6, WBC 13 K, hemoglobin 12.9, hematocrit 38.4, platelet 169, INR 1.9, sodium 138, potassium 3.9, chloride 103, BUN 41, creatinine 2.04, anion gap 12, glucose 50, lactic acid 1.1, troponin, LFT and CK all normal, TSH 3.08, procalcitonin 0.12, UA negative. Numerous imaging studies performed as noted below given trauma. In ED given dextrose secondary to hypoglycemia and hypothermia protocol. When I evaluated the patient he was being re-warmed blanket, I was able to have a clear, lucid conversation with him. He was A & O x 4, family states, "this is currently the best I've seen him from a mental standpoint in the past 3 days and weeks prior." ddx including but not limited to: hypoglycemia/hyperglycemia (if not taking medications approp), sepsis, hypothyroidism, adrenal insuff, CVA, medication induced, dementia, mechanical fall -admit to telemetry -repeat CT of head in a.m. r/o cva (unable to do MRI given pacer) -EEG r/o seizure -pacer interrogation r/o arrythmia -IV zosyn, dosed per pharm until infectious etiology ruled out (pt placed on doxycycline 09/28 given concern for infiltrate, has taken 4 doses, will discontinue doxy in place of zosyn for now -CT scan face +sphenoid air/fluid level ? sinusitis - would complete full 7 day course of antibiotic -pharmacy for glycemic consult given probable cause of hypoglycemia -consult psych given depression -decrease lexapro to 10mg daily (given not taking medications approp and recent increase from 10-20) -A1C, Fasting lipid panel -cbc, bmp, PT/INR in a.m. -hold warfarin until repeat inr in a.m. given multiple ecchymosis and abraison -await urine and blood cultures (2) Fall: -unknown mechanism of action given found on floor, in prone position -numerous abrasions, ecchymosis -consult wound care of skin tears -imaging as noted (3) Hypothermia: -as above, temp now 36.3 -most likely in setting of fall, on ground ~4 hrs, hypoglycemia -r/o other etiologies as documented above (4) T2DM (type 2 diabetes mellitus): A1C 7.9 07/09/18 -repeat INR in a.m. -consult pharmacy for glycemic management -was on Lantus 25 unit AM/HS -Humalog AC 19 units breakfast, 18 units Lunch and 24 units dinner (5) Depression: -recently started on lexapro 10mg daily on 09/21, then titrated to 20mg daily on 09/26; however patient had not been taking any meds. -I am going to decrease lexapro back to 10mg daily given age -consult psychiatry given freq outbursts of weeping, crying, also with signs of dementia for further evaluation and treatment recommendation (6) CKD stage 4 due to type 2 diabetes mellitus: -baseline Cr 2.2-2.4, Cr today 2.04 -avoid nephrotoxic agents -monitor bmp (7) Atrial fibrillation: -currently rate and rhythm controlled with coreg, pacemaker -anticoagulated on warfarin, INR 1.9 today -hold warfarin today, resume tomorrow if no s/sx of bleeding -INR in a.m. (8) Congestive heart failure: -Last Echocardiogram 12/2017 EF 50-55% LVH, mild aortic valve stenosis, mild MR, small apical septal/inferior wall motion abn possibly consistent with venricular pacemaker -on regimen of coreg, Lasix 80mg bid, aldactone 12.5mg daily -no s/sx of volume overload, appears euvolemic -heart healthy, low NA diet -daily weights, strict I and O (9) Hypertension: -blood pressure controlled on amlodipine, lasix, aldactone, coreg -monitor, hold parameters in place (10) Dyslipidemia: -continue atorvastatin (11) History of pacemaker: -pacemaker interrogation ordered (12) DVT prophylaxis: -warfarin, INR subtherapeutic 1.9 -hold coumadin today in setting of multiple areas of ecchymosis -repeat INR in a.m., if no s/sx of bleeding resume warfarin 10mg daily Disposition: To be determined Follow up: PCP Dr. Yoon upon discharge Patient was seen in collaboration with Dr. Zavala, please see addendum History of Present Illness Chief Complaint: Altered mental status, found on floor at 4:00am by family Primary Care Provider: Hilario Yoon MD This is an 83-year-old male with significant past medical history of chronic atrial fibrillation on warfarin, T2 DM, HTN, HLD, MARLON not tolerant to CPAP, CKD stage IV, sinus node dysfunction status post permanent pacemaker, history of congestive heart failure, pulmonary hamartoma who presents to secondary to being found on floor at 4 AM by and son. Patient was last known well approximately 12 AM, lying in bed. and son at bedside. They state for approximately the past 2 months has noticed mental decline in patient. Also for the last 2 weeks patient has been suffering from significant depression. Approximately 10 days ago patient was seen by PCP secondary to feeling down and depressed, initiated on Lexapro 10 mg daily and subsequently increased to 20 mg daily approximately 5 days later. Denies S.I. or thought of harming others. No traumatic incident, unknown what brought on depression. "Just sad all the time." The son who does not see father as often has noticed significant mental decline over the past 2 months ( since last seen in football season), increasing forgetfulness, has not been taking pills appropriately for the past 6 weeks. Patient has been emotionally labile, increasingly agitated with symptoms worse in the evening. Frequent outbursts of weeping. Of note patient did suffer from episode of bronchitis while in [facility] over [place], but has since resolved per . Last night prior to going to sleep patient was in bed, very agitated, flailing arms, was extremely scared. When found on floor in prone position at 4 AM he had numerous areas of ecchymoses and skin tears, even removed a slat from underneath bed. Patient unfortunately does not recall event. Son has been in town since 09/28 secondary to patient being in ER for worsening depressive episode. Patient has been compliant with medications for the past 2 days secondary to son, including his insulin regimen. Per family appetite and p.o. intake has slightly been decreased over the past 4 weeks. There is been no reported weight loss. Patient is currently awake and alert and oriented and complains of right wrist pain, R lateral chest wall pain, but denies fever, chills, sweats, lightheadedness, dizziness, chest pain, shortness of breath, hemoptysis, nausea, vomiting, hematuria. He does report to increased frequency with urination and difficulty holding stool, but no jonathan diarrhea. Allergies Allergy/AdvReac Type Severity Reaction Status Date / Time Beta-Blockers Allergy Unknown abd cramps Verified 10/01/18 06:41 (Beta-Adrenergic Bloc zolpidem AdvReac Intermediate confusion Unverified 10/01/18 06:41 mometasone furoate AdvReac Unknown DISORIENTED Unverified 10/01/18 06:41 Home Medications Home Medications Medication Instructions Recorded Confirmed Type amlodipine 5 mg PO DAILY 08/20/18 10/01/18 History aspirin [Aspir-81] 81 mg PO DAILY 08/20/18 10/01/18 History carvedilol 12.5 mg PO BID 08/20/18 10/01/18 History cholecalciferol (vitamin D3) 1,000 unit PO DAILY 08/20/18 10/01/18 History [Vitamin D3] folic acid 5 mg PO DAILY 08/20/18 10/01/18 History furosemide 80 mg PO BID 08/20/18 10/01/18 History insulin detemir U-100 [Levemir 25 units SUBCUT AMHS 08/20/18 10/01/18 History FlexTouch U-100 Insuln] insulin lispro [Humalog KwikPen 0 unit SUBCUT UD 08/20/18 10/01/18 History Insulin] spironolactone 12.5 mg PO DAILY 08/20/18 10/01/18 History warfarin 10 mg PO DAILY 08/20/18 10/01/18 History doxycycline hyclate 100 mg PO BID 10 Days #20 tab 09/28/18 10/01/18 Rx escitalopram oxalate 20 mg PO DAILY 09/28/18 10/01/18 History atorvastatin 20 mg PO HS 10/01/18 10/01/18 History calcitriol 0.5 mcg PO MOWEFR 10/01/18 10/01/18 History Past Med/Surg History Medical History T2DM (type 2 diabetes mellitus) CKD stage 4 due to type 2 diabetes mellitus Atrial fibrillation Hypertension Dyslipidemia Obstructive sleep apnea Ischemic cardiomyopathy Coronary artery disease Congestive heart failure (Acute) Surgical History History of excision of pilonidal cyst History of pacemaker History of appendectomy History of tonsillectomy and adenoidectomy History of cataract surgery Social History marital status: Current Living Situation: Spouse current occupational status: retired Other Information That Helps Us Care for You: No Feels Safe at Home: Yes Smoking Status: Former smoker Years Smoked: 27 Cigarettes per Day: 3 ppd Do You Dip or Chew Tobacco: No Smoking End Date: 1977 Hx Alcohol Use: Yes Alcohol type: beer Alcohol Intake Frequency: holidays/ special occasions only Hx Substance Use: No Beliefs That Will Affect Care: None Preferred Language: Tajik Review of Systems All systems reviewed & are unremarkable except as noted in HPI & below slightly unreliable history Physical Exam 2 Vital Signs (Past 24 Hours): Last Vital Signs Temp 36.4 C L 10/01/18 10:17 Pulse 60 10/01/18 10:50 Resp 15 10/01/18 10:50 BP 145/72 H 10/01/18 10:45 Pulse Ox 97 10/01/18 10:50 Physical Exam: Gen: Morbidly obese, M, lying in bed, easily arousable, sleeping, but arouses to verbal/tactile stimulation, NAD, lying in bed, pleasant , conversing easily Head: Normocephalic, +facial ecchymosis b/l periorbital, buccal and hypertrophy of upper/lower lip given trauma Eyes: Sclera normal, no conjunctival injection, PERRLA, EOMI ENT: Gross hearing intact, normal pharynx, mucous membranes moist Neck: supple, no adenopathy, No JVD, no bruit, no thyromegaly, Resp: Clear to auscultation b/l, no wheeze, rales, rhonchi. 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 Extremities: b/l venous stasis changes with anterior/pretibal skin tear, no jonathan edema bilaterally, RUE dressing intact with skin tears underneath Skin: warm, moist, no rash, negative turgor, cap refill < 2sec Neuro: Alert and oriented x 3, speech normal, good mood/affect, cran nerve 2-12 intact grossly : deferred Results & Data Laboratory Results Short CBC 10/01/18 Range/Units 07:48 WBC 13.00 H (4.8-10.8) K/uL Hgb 12.9 L (14.0-18.0) g/dL Hct 38.4 L (42-52) % Plt Count 169 (130-400) K/uL BMP 10/01/18 07:48 Sodium 138 Potassium 3.9 Chloride 103 Carbon Dioxide 23 BUN 41 H Creatinine 2.04 H Glucose 50 L* Calcium 8.7 Cardiac Enzymes 10/01/18 Range/Units 07:48 Total Creatine Kinase 72 (39-308) U/L Troponin I < 0.015 (0-0.045) ng/ml Liver Function 10/01/18 Range/Units 07:48 Total Bilirubin 0.9 (0.2-1) mg/dl AST 21 (15-37) U/L ALT 22 (12-78) U/L Alkaline Phosphatase 66 (45-117) U/L Albumin 3.2 L (3.4-5.0) gm/dl Urine 10/01/18 Range/Units 08:03 Urine Color Yellow Urine Appearance Clear (Clear) Urine pH 5.0 (4.5-7.5) Ur Specific [place] 1.014 (1.000-1.030) Urine Protein 2+ H (Negative) Urine Glucose (UA) Negative (Negative) Diagnostic Findings Wrist Xray: IMPRESSION: No acute fracture or dislocation within the right wrist. CXR: IMPRESSION: 1. Cardiomegaly without overt pulmonary edema. 2. Partially calcified nodule of the lingula appears unchanged. 3. Chronic scarring/atelectasis of the left lung base. Head CT: IMPRESSION: 1. Chronic small vessel ischemic change. No acute intracranial abnormality. Face CT: IMPRESSION: 1. No acute facial fracture. 2. Small left inferior facial contusion. 3. Small air-fluid level within the left sphenoid sinus. Cspine CT: IMPRESSION: No acute cervical spine fracture or subluxation. ECG Rate (beats per minute): 79bpm Findings: + paced rhythm Additional Comments: QTC 584 Code Status & VTE Plan Code Status Full Code Discussed with family and son at bedside VTE Prophylaxis Plan VTE Prophylaxis will be ordered: Yes Supervising Physician Co-Signing Physician Notes Attending Addendum: care coordinated with PRISCILA Montes De Oca please refer to her notes for full details, I agree with her notes patient seen and examined, records reviewed by myself as well on exam, patient seen resting in bed, at bedside- supplementing history patient reports he is feeling improved compared to admission oriented x 3, answers questions appropriately, pleasant and cooperative spent at least 30 minutes obtaining history from patient and not using CPAP as patient reports it is uncomfortable no active symptoms on my exam no other symptoms VS noted and reviewed oriented x3, not in distress, speaks in sentences with no effort nor accessory muscle use (+) areas of hematoma on the face normal rate, regular rhythm, no murmurs clear breath sounds bilaterally non distended, soft, nontender (+) areas of ecchymoses on the arm, small skin tears on the arms no bipedal edema, erythema, warmth no focal neuro deficits WBC 13.00 Hg 12.9 Crea 2.04 ASSESSMENT AND PLAN EPISODE OF ALTERED MENTAL STATUS associated with progressive cognitive decline the past few months from untreated MARLON? encouraged CPAP use, ordered while admitted repeat CT head, EEG, Vit b12, TSH ordered Neurology consulted HYPOGLYCEMIA DM TYPE 2 ISS, Pharmacy consulted HYPOTHERMIA from Hypoglycemia? r/o infection ff up cultures empiric Zosyn DEPRESSION Psych consulted other diagnoses and plan of care as per [facility] notes Ryan Zavala MD _ (1) T2DM (type 2 diabetes mellitus) Chronic kidney disease stage: stage 4 (severe) Diabetes mellitus complication detail: with chronic kidney disease Diabetes mellitus complication status: with kidney complications Diabetes mellitus longterm insulin use: with longterm use Qualified Code(s): E11.22 - Type 2 diabetes mellitus with diabetic chronic kidney disease; N18.4 - Chronic kidney disease, stage 4 (severe); Z79.4 - USP (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 of insulin (2) Congestive heart failure Heart failure chronicity: acute on chronic Heart failure type: unspecified Qualified Code(s): I50.9 - Heart failure, unspecified (3) Atrial fibrillation Atrial fibrillation type: chronic Qualified Code(s): I48.2 - Chronic atrial fibrillation (4) Depression Depression Type: unspecified Qualified Code(s): F32.9 - Major depressive disorder, single episode, unspecified (5) Hypothermia Encounter type: subsequent encounter Qualified Code(s): T68.XXXD - Hypothermia, subsequent encounter (6) Altered mental status Altered mental status type: transient alteration of awareness Qualified Code( s): R40.4 - Transient alteration of awareness (7) Hypertension Hypertension type: essential hypertension Qualified Code(s): I10 - Essential (primary) hypertension (8) Fall Encounter type: subsequent encounter Qualified Code(s): W19.XXXD - Unspecified fall, subsequent encounter
[2018-10-01] MEDS ORDERED: ACETAMINOPHEN 325 MG TAB PO PRN (11:45)
[2018-10-01] MEDS ORDERED: PHARMACIST DISCHARGE MED REC CONSULT PRN (11:45)
[2018-10-01] MEDS ORDERED: GLUCAGON FOR INJ 1 MG VIAL SQ PRN (11:45)
[2018-10-01] MEDS ORDERED: ALUMINUM/MAGNESIUM SUSP 30 ML UDC PO PRN (11:45)
[2018-10-01] MEDS ORDERED: MAGNESIUM HYDROXIDE SUSP 30 ML UDC PO PRN (11:45)
[2018-10-01] MEDS ORDERED: GLUCOSE 10 TABS/TUBE PO PRN (11:45)
[2018-10-01] MEDS ORDERED: POLYETHYLENE (MIRALAX) 17 GM PACK PO PRN (11:45)
[2018-10-01] MEDS ORDERED: CARBOHYDRATES FOR HYPOGLYCEMIA PO PRN (11:45)
[2018-10-01] MEDS ORDERED: GLUCOSE 40% GEL 15 GM TUBE PO PRN (11:45)
[2018-10-01] MEDS ORDERED: DEXTROSE 50% 50 ML SYRINGE IV PRN (11:45)
[2018-10-01] MEDS ORDERED: PIPERACILL/TAZOBAC CONSULT ACTIVE PRN (11:45)
[2018-10-01] MEDS ORDERED: PHARMACY GLYCEMIC MGMT CONSULT SCH (11:55)
[2018-10-01] MEDS ORDERED: DOXYCYCLINE HYCLATE 100 MG CAP PO SCH (12:15)
[2018-10-01] MEDS ORDERED: PIPERACILLIN/TAZOBACTAM 4.5 GM in DEXTROSE 5% 100 ML IV ONE (12:15)
--- NOTE | 2018-10-01 12:28 | Pharmacy Report ---
Pharmacy Abx/Gly Intl Consult - Date of Service October 01, 2018 - [facility] has been consulted by Enrico DOBSON to manage ZOSYN and GLYCEMIC CONTROL for this patient as per the Pharmacy & Therapeutics Committee approved dosing protocols. - Subjective The patient is a 83 year old M admitted on 10/01/18 10:25 with mental status changes and hypothermia. - Objective Vital Signs (Past 12hrs): Vital Signs Temp Pulse Pulse Pulse Resp BP BP 10/01/18 12:12 36.3 C L 10/01/18 11:30 36.2 C L 62 12 159/75 H 10/01/18 10:50 60 15 10/01/18 10:45 60 15 145/72 H 10/01/18 10:40 60 18 10/01/18 10:32 60 18 10/01/18 10:30 60 19 163/72 H 10/01/18 10:20 64 22 10/01/18 10:17 36.4 C L 66 25 H 10/01/18 10:15 68 18 137/80 10/01/18 10:00 63 23 136/65 10/01/18 09:45 63 14 144/63 H 10/01/18 09:31 71 15 131/88 10/01/18 09:30 80 18 10/01/18 09:16 62 15 147/73 H 10/01/18 09:15 62 14 10/01/18 09:00 61 15 153/72 H 10/01/18 08:46 60 20 130/89 10/01/18 08:45 60 16 10/01/18 08:30 34.8 C L 64 60 21 165/85 H 165/85 H 10/01/18 08:17 74 23 123/76 10/01/18 08:15 65 18 10/01/18 08:01 64 22 131/93 10/01/18 08:00 71 25 H 10/01/18 07:45 67 20 177/80 H 10/01/18 07:37 62 14 167/89 H 10/01/18 07:11 76 17 183/104 H 10/01/18 06:26 10/01/18 06:10 10/01/18 05:52 32.6 C L 76 16 176/86 H Pulse Ox 10/01/18 12:12 10/01/18 11:30 97 10/01/18 10:50 97 10/01/18 10:45 97 10/01/18 10:40 98 10/01/18 10:32 98 10/01/18 10:30 98 10/01/18 10:20 97 10/01/18 10:17 98 10/01/18 10:15 98 10/01/18 10:00 98 10/01/18 09:45 93 10/01/18 09:31 93 10/01/18 09:30 95 10/01/18 09:16 92 10/01/18 09:15 95 10/01/18 09:00 93 10/01/18 08:46 94 10/01/18 08:45 95 10/01/18 08:30 97 10/01/18 08:17 96 10/01/18 08:15 96 10/01/18 08:01 95 10/01/18 08:00 96 10/01/18 07:45 97 10/01/18 07:37 96 10/01/18 07:11 95 10/01/18 06:26 96 10/01/18 06:10 96 10/01/18 05:52 95 Accuchecks BSG (last 24hrs): 10/01/18 10/01/18 07:48 09:10 Glucose 50 L* POC Glucose 145 H Lab Results (24hrs): Laboratory Results - last 24 hr 10/01/18 10/01/18 10/01/18 07:48 07:48 07:48 WBC 13.00 H RBC 4.03 L Hgb 12.9 L Hct 38.4 L MCV 95.3 MCH 32.0 MCHC 33.6 RDW Std Deviation 63.0 H RDW Coeff of Nadege 18.0 H Plt Count 169 MPV 11.1 H Immature Gran % (Auto) 1.5 Neut % (Auto) 84.8 Lymph % (Auto) 7.5 [place] % (Auto) 5.7 Eos % (Auto) 0.4 Baso % (Auto) 0.1 Immature Gran # (Auto) 0.19 H Neut # (Auto) 11.03 H Lymph # (Auto) 0.98 L [place] # (Auto) 0.74 H Eos # (Auto) 0.05 Baso # (Auto) 0.01 PT 18.1 H INR 1.9 H Sodium 138 Potassium 3.9 Chloride 103 Carbon Dioxide 23 Anion Gap 12.0 H BUN 41 H Creatinine 2.04 H Est Cr Clr Drug Dosing 35.6 Est GFR ( Amer) 34.2 Est GFR (Non-Af Amer) 29.5 BUN/Creatinine Ratio 19.9 Glucose 50 L* POC Glucose Lactate Calcium 8.7 Total Bilirubin 0.9 AST 21 ALT 22 Alkaline Phosphatase 66 Total Creatine Kinase 72 Troponin I < 0.015 Total Protein 7.3 Albumin 3.2 L Globulin 4.1 H Albumin/Globulin Ratio 0.8 L Procalcitonin TSH Urine Color Urine Appearance Urine pH Ur Specific [place] Urine Protein Urine Glucose (UA) Urine Ketones Urine Blood Urine Nitrite Urine Bilirubin Urine Urobilinogen Ur Leukocyte Esterase Urine WBC (Auto) Urine RBC (Auto) U Hyaline Cast (Auto) U Epithel Cells (Auto) Urine Bacteria (Auto) 10/01/18 10/01/18 10/01/18 07:48 07:48 07:48 WBC RBC Hgb Hct MCV MCH MCHC RDW Std Deviation RDW Coeff of Nadege Plt Count MPV Immature Gran % (Auto) Neut % (Auto) Lymph % (Auto) [place] % (Auto) Eos % (Auto) Baso % (Auto) Immature Gran # (Auto) Neut # (Auto) Lymph # (Auto) [place] # (Auto) Eos # (Auto) Baso # (Auto) PT INR Sodium Potassium Chloride Carbon Dioxide Anion Gap BUN Creatinine Est Cr Clr Drug Dosing Est GFR ( Amer) Est GFR (Non-Af Amer) BUN/Creatinine Ratio Glucose POC Glucose Lactate 1.1 Calcium Total Bilirubin AST ALT Alkaline Phosphatase Total Creatine Kinase Troponin I Total Protein Albumin Globulin Albumin/Globulin Ratio Procalcitonin 0.12 TSH 3.080 Urine Color Urine Appearance Urine pH Ur Specific [place] Urine Protein Urine Glucose (UA) Urine Ketones Urine Blood Urine Nitrite Urine Bilirubin Urine Urobilinogen Ur Leukocyte Esterase Urine WBC (Auto) Urine RBC (Auto) U Hyaline Cast (Auto) U Epithel Cells (Auto) Urine Bacteria (Auto) 10/01/18 10/01/18 08:03 09:10 WBC RBC Hgb Hct MCV MCH MCHC RDW Std Deviation RDW Coeff of Nadege Plt Count MPV Immature Gran % (Auto) Neut % (Auto) Lymph % (Auto) [place] % (Auto) Eos % (Auto) Baso % (Auto) Immature Gran # (Auto) Neut # (Auto) Lymph # (Auto) [place] # (Auto) Eos # (Auto) Baso # (Auto) PT INR Sodium Potassium Chloride Carbon Dioxide Anion Gap BUN Creatinine Est Cr Clr Drug Dosing Est GFR ( Amer) Est GFR (Non-Af Amer) BUN/Creatinine Ratio Glucose POC Glucose 145 H Lactate Calcium Total Bilirubin AST ALT Alkaline Phosphatase Total Creatine Kinase Troponin I Total Protein Albumin Globulin Albumin/Globulin Ratio Procalcitonin TSH Urine Color Yellow Urine Appearance Clear Urine pH 5.0 Ur Specific [place] 1.014 Urine Protein 2+ H Urine Glucose (UA) Negative Urine Ketones Negative Urine Blood 1+ H Urine Nitrite Negative Urine Bilirubin Negative Urine Urobilinogen Negative Ur Leukocyte Esterase Negative Urine WBC (Auto) 1-5 Urine RBC (Auto) 0-4 U Hyaline Cast (Auto) 1-5 U Epithel Cells (Auto) 0-5 Urine Bacteria (Auto) Negative Micro Results: 10/01/18 07:48 Blood Culture - Pending Blood 10/01/18 07:50 Blood Culture - Pending Blood - Risk Factors for Resistance Risk Factors for Antimicrobial Resistance: * Antimicrobial use within the last 90 days: Augmentin 08/2018, Currently on Doxycycline - Recent Pertinent Medications Recent Pertinent Medications/Risk Factors for Insulin Resist: Outpatient Anti-diabetic Regimen (per [facility] records): * Levemir 25 units BID * Lispro 19 units w/ breakfast + 18 units w/ lunch + 24 units w/ dinner; and correction factor of 25mg/dL/unit * Patient has been depressed and confused and has stopped using meds at times in the recent past * A1c = ? % results pending Risk Factors for Insulin Resistance: * Infection? recent dx of pneumonia - Assessment * Type 2 diabetic with reported ongoing confusion for weeks along with depression. Found on floor by his after he sustained a fall. * He has a h/o medication non-compliance. I am hesitant to resume his home insulin regimen given this information along w/ the fact he was hypoglycemic on admission. Will instead base insulin doses upon patient's weight and mild- moderate stress level. * Will resume basal insulin this evening in the form of Lantus using a scale * Novolog correction and carb coverage will be based upon moderate stress level initially * A1c result is pending * Patient was recently started on Doxycycline for PNA dx by ER physician * Zosyn has been added today as well for 48 hr of empiric broad spectrum coverage. * He has used abx in the last 90 days placing him at increased risk for resistant organism * CXR read as: no lobar airspace consolidations * BLCX's are pending * SCr reportedly at his baseline - Plan ANTIMICROBIAL THERAPY Piperacillin/Tazobactam * 4.5 g bolus administered over 30 minutes, then 4.5 g IV extended infusion every 8 hours for CrCl greater than 20 mL/min * Aggressive dosing selected due to BMI 35 or more INPATIENT GLYCEMIC CONTROL: Basal Insulin * Lantus SQ BID per scale: * 0 units if BSG less than 120 * 12 units if BSG 120-180 * 18 units if BSG above 180 Bolus Insulin * NovoLog per scale ACHS and at 0200 tonight to screen for hypo- * Goal Range: Low 120 mg/dL - High 160 mg/dL * Correction Factor: 20 mg/dL/unit * Nutritional / Prandial insulin per carb ratio of 1 unit per 7 grams CHO consumed RECOMMENDATIONS FOR DISCHARGE: * to be determined * Please note that the plan above was derived based on current level of insulin resistance and hospital stress. These recommendations are appropriate for inpatient admission only. Plan of care upon discharge will need to be reassessed to avoid potential outpatient hypo/hyperglycemia. Pharmacy will follow patient and adjust orders on a daily basis. Thank you for allowing us to participate in this patients care.
--- NOTE | 2018-10-01 13:08 | Psychiatric Consultation ---
Date of Consultation October 01, 2018 Impression / Recommendations Impression 83 yo CM with significant past medical history of chronic atrial fibrillation on warfarin, T2 DM, HTN, HLD, MARLON not tolerant to CPAP, CKD stage IV, sinus node dysfunction status post permanent pacemaker, history of congestive heart failure, pulmonary hamartoma and recent depression who was admitted secondary to being found on floor at 4 AM by and son. Psychiatry consulted for med recs and possible involvement of lexapro in patient presentation. On evaluation , patient was lucid, AAOX4 and memory was grossly intact. He reported depression however is not in a major depressive episode and there is no SI/HI/ aVH or acute safety concerns. He was recently started on Lexapro by his PCP and this is not likely to be the culprit or a direct causative effect on patients presentation, AMS or fall. Would recommend considering that on admission, patients blood glucose was 50, mildly elevated WBC and he also has a extensive history of A-fib, HTN and CKD stage IV, as the possible causes of his AMS. However, patients QTC interval today was 584 and this is quite prolonged and given history of arrhythmia would discontinue Lexapro as it is associated with and may affect QTC prolongation. Recommend starting Zoloft 50mg daily for depression and patient would benefit with Psychiatry and a therapist appointments on discharge. Recommendations: - Discontinue Lexapro as QTC on today's EKG was 584 and this medication may increase risk of prolonged QTC interval - Start Zoloft 50mg daily for depressin - No acute safety concerns and patient does not meet criteria for inpatient Psychiatric admission - Would benefit from outpatient Psychiatry and therapy appointments post- discharge Inventory Assets Strengths: future oriented, positive outlook, help-seeking, access to care Needs: meds, therapy Risk Factors Assessment Male: Yes : Yes Health Problems: Yes Mental Health Diagnoses: Yes Previous Attempt: No Previous Attempt; Highly Lethal: No Previous Psychiatric Hospitalization: No Hopelessness: No Smoker: No Protective Factors Assessment : Yes Responsible for Young Children: No Employed: No Stable Relationships: Yes Supportive Family: Yes CPT Code 44330 Psych History Chief Complaint "I don't know if I fell" History of Present Illness 83 yo CM with significant past medical history of chronic atrial fibrillation on warfarin, T2 DM, HTN, HLD, MARLON not tolerant to CPAP, CKD stage IV, sinus node dysfunction status post permanent pacemaker, history of congestive heart failure, pulmonary hamartoma and recent depression who was admitted secondary to being found on floor at 4 AM by and son. Psychiatry consulted for med recs and possible involvement of lexapro in patient presentation. Upon interview , patient reported he does not recall falling, but was told by his son he fell. States he got the injuries probably from the fall. He states that he had started feeling depressed over the last 2-3 months and "I can't find a reason why". Reports he has been "withdrawn" and hasn't enjoyed things like he used, however he does still enjoy watching sports and gardening. He denies any history of psychotic or manic symptoms. He reports he is and lives with his . States the PCP started him on lexapro and he has not seen a Psychiatrist. He denies SI, intent or plan and denies history of any suicide attempts. He denies HI thoughts. We discussed his medications and possibly starting therapy and seeing a Psychiatrist to follow up and patient agrees. He denies drug and alcohol use. Below autopopulated from chart: This is an 83-year-old male with significant past medical history of chronic atrial fibrillation on warfarin, T2 DM, HTN, HLD, MARLON not tolerant to CPAP, CKD stage IV, sinus node dysfunction status post permanent pacemaker, history of congestive heart failure, pulmonary hamartoma who presents to [facility] secondary to being found on floor at 4 AM by and son. Patient was last known well approximately 12 AM, lying in bed. and son at bedside. They state for approximately the past 2 months has noticed mental decline in patient. Also for the last 2 weeks patient has been suffering from significant depression. Approximately 10 days ago patient was seen by PCP secondary to feeling down and depressed, initiated on Lexapro 10 mg daily and subsequently increased to 20 mg daily approximately 5 days later. The son who does not see father as often has noticed significant mental decline over the past 2 months (since last seen in football season), increasing forgetfulness, has not been taking pills appropriately for the past 6 weeks. Patient has been emotionally labile, increasingly agitated with symptoms worse in the evening. Of note patient did suffer from episode of bronchitis while in [place], but has since resolved per . Last night prior to going to sleep patient was in bed, very agitated, flailing arms, was extremely scared. When found on floor in prone position at 4 AM he had numerous areas of ecchymoses and skin tears, even removed a slat from underneath bed. Patient unfortunately does not recall event. Son has been in town since 09/28 secondary to patient being in ER for worsening depressive episode. Patient has been compliant with medications for the past 2 days secondary to son, including his insulin regimen. Per family appetite and p.o. intake has slightly been decreased over the past 4 weeks. There is been no reported weight loss. Patient is currently awake and alert and oriented and complains of right wrist pain, R lateral chest wall pain, but denies fever, chills, sweats, lightheadedness, dizziness, chest pain, shortness of breath, hemoptysis, nausea, vomiting, hematuria. He does report to increased frequency with urination and difficulty holding stool, but no jonathan diarrhea. Past Psychiatric History Previous Psych History: depression Current Psychiatric Diagnosis: depression Previous Psych Admissions: denies History of Previous Suicide Attempt: No Past Medication Trials: none Additional Notes: just started on lexapro a few weeks ago by PCP, according to the chart review. Allergies Allergy/AdvReac Type Severity Reaction Status Date / Time Beta-Blockers Allergy Unknown abd cramps Verified 10/01/18 06:41 (Beta-Adrenergic Bloc zolpidem AdvReac Intermediate confusion Unverified 10/01/18 06:41 mometasone furoate AdvReac Unknown DISORIENTED Unverified 10/01/18 06:41 Home Medications Home Medications Medication Instructions Recorded Confirmed Type amlodipine 5 mg PO DAILY 08/20/18 10/01/18 History aspirin [Aspir-81] 81 mg PO DAILY 08/20/18 10/01/18 History carvedilol 12.5 mg PO BID 08/20/18 10/01/18 History cholecalciferol (vitamin D3) 1,000 unit PO DAILY 08/20/18 10/01/18 History [Vitamin D3] folic acid 5 mg PO DAILY 08/20/18 10/01/18 History furosemide 80 mg PO BID 08/20/18 10/01/18 History insulin detemir U-100 [Levemir 25 units SUBCUT AMHS 08/20/18 10/01/18 History FlexTouch U-100 Insuln] insulin lispro [Humalog KwikPen 0 unit SUBCUT UD 08/20/18 10/01/18 History Insulin] spironolactone 12.5 mg PO DAILY 08/20/18 10/01/18 History warfarin 10 mg PO DAILY 08/20/18 10/01/18 History doxycycline hyclate 100 mg PO BID 10 Days #20 tab 09/28/18 10/01/18 Rx escitalopram oxalate 20 mg PO DAILY 09/28/18 10/01/18 History atorvastatin 20 mg PO HS 10/01/18 10/01/18 History calcitriol 0.5 mcg PO MOWEFR 10/01/18 10/01/18 History Substance Abuse History denies Personal History Living Arrangements: Home Living Arrangements Comments: and lives with . 3 grown children living on their own. Patient History Medical History T2DM (type 2 diabetes mellitus) CKD stage 4 due to type 2 diabetes mellitus Atrial fibrillation Hypertension Dyslipidemia Obstructive sleep apnea Ischemic cardiomyopathy Coronary artery disease Congestive heart failure (Acute) Surgical History History of excision of pilonidal cyst History of pacemaker History of appendectomy History of tonsillectomy and adenoidectomy History of cataract surgery Social History marital status: Current Living Situation: Spouse current occupational status: retired Feels Safe at Home: Yes Smoking Status: Former smoker Years Smoked: 27 Cigarettes per Day: 3 ppd Do You Dip or Chew Tobacco: No Smoking End Date: 1977 Hx Alcohol Use: Yes Alcohol Intake Frequency: holidays/special occasions only Preferred Language: [place]an Physical Exam Psychiatric A+Ox3, euthymic affect Apperance: appeared stated age lesions and bruising on face, dressing on right forearm and swollen/bruised lips Eye Contact: good eye contact Motor Behavior: no abnormal motor movements Speech: normal rate/rhythm/volume of speech Affect: euthymic affect and mood congruent with affect Thought Process: linear/logical thought process Thought Content: reality based without delusions Suicidal Thoughts: denies suicidal thoughts Homicidal Thoughts: denies homicidal thoughts Hallucinations: no auditory hallucinations and no visual hallucinations Cognition: recent memory grossly intact, remote memory grossly intact, attention grossly intact and language grossly intact Estimated Intelligence: average estimated intelligence Insight: + fair insight Judgement: + fair judgement Vital Signs (Past 24 Hours) Last Vital Signs Temp 36.3 C L 10/01/18 12:12 Pulse 62 10/01/18 11:30 Resp 12 10/01/18 11:30 BP 159/75 H 10/01/18 11:30 Pulse Ox 97 10/01/18 11:30
[2018-10-01] MEDS: INSULIN ASPART 100 UNITS/ML 3 ML PEN SC SCH ×3 (13:16→21:03)
[2018-10-01] MEDS: CALCITRIOL 0.25 MCG CAPSULE PO SCH (13:17)
[2018-10-01] MEDS ORDERED: WARFARIN SOD 10 MG TAB PO SCH (16:00)
[2018-10-01] MEDS ORDERED: FUROSEMIDE 80 MG TAB PO SCH (17:00)
[2018-10-01] MEDS: PIPERACILLIN/TAZOBACTAM 4.5 GM in DEXTROSE 5% 100 ML IV SCH (17:53)
--- NOTE | 2018-10-01 18:18 | Consultation Report ---
DATE OF CONSULTATION: 10/01/2018 REASON FOR CONSULTATION: Change in mental status. HISTORY OF PRESENT ILLNESS: Mr. Wilson is an 83-year-old right-handed male with multiple medical comorbidities including atrial fibrillation, on warfarin, type 2 diabetes, hypertension, hyperlipidemia, obstructive sleep apnea, not using mask for 1 year, chronic kidney disease, sinus node dysfunction, status post permanent pacemaker, congestive heart failure, pulmonary hamartoma, presenting to [facility] after being found on the floor bleeding by this morning. He has multiple medical problems. His son might have noticed some mild difficulty with cognition, which he felt was not out of proportion to age for about a year, but there has been a marked escalation of cognitive issues, crying, depression over the last 2 months. At some point in the last several months, the patient stopped taking all of his medications unbeknownst to his . 10 days ago he was started on Lexapro, which was escalated in dose 5 days later. He is increasingly forgetful, has not been taking his medications for at least 6 weeks, not appropriately doing bill paying. He has been emotionally labile, agitated, symptoms worse in the evening, frequent bursts of act for himself to go to [facility] and did not pack enough clothing. His has indicated that he becomes agitated during sleep, flailing his arms on the evening of admission for an hour and a half. He vocalizes somewhat, sometimes has a guttural voice, sometimes speaks in comprehensible speech. She last evening after about an hour and a half of this went to another room, went back up to the bedroom. The room in which he was in was cool. On admission, CT of the head noncontrast showed no intraparenchymal hematoma, chronic bilateral vascular changes. Wrist x-ray showed no fracture of the right wrist. His white count was 13. INR was 1.9. Chemistry profile: His initial blood sugar was 50, BUN and creatinine 41/2.0. Thyroid function normal. Toxicology negative. The patient was hypothermic on admission with a temperature of 32.6. PAST MEDICAL HISTORY: As above. The patient was diagnosed with pneumonia 2 days ago and has been placed on antibiotics. Ischemic cardiomyopathy. PAST SURGICAL HISTORY: Pacemaker, appendectomy, tonsillectomy, cataract, pilonidal cyst. FAMILY HISTORY: Father at 86, may have had cognitive decline. ALLERGIES: BETA BLOCKERS, ZOLPIDEM. CURRENT MEDICATIONS: Amlodipine, aspirin, carvedilol, vitamin D3, folic acid, furosemide, insulin, spironolactone, warfarin, doxycycline, Lexapro, atorvastatin, Calcitriol. PHYSICAL EXAMINATION: The patient has multiple facial ecchymosis. He is oriented x3. He is unable to remember the President's name. No right/left confusion. Memory was 2/3 at 3 minutes. Calculations were normal. There were no carotid bruits. No heart murmurs. Heart has regular rate and rhythm. Patient is morbidly obese. There are excoriations on his shins and venostasis changes in his lower extremities. There is full strength although is limited in the bed in the lowers. Symmetric reflexes. Downgoing toes. Proprioception is poor, and the toes has mild tremor on intention. No flap is noted. No resting tremor. IMPRESSION: This patient has had a cognitive and psychiatric decline definitively over the last 2 months. This has been medically complicated by the fact that the patient has not been taking his medications, has not been wearing a CPAP mask, has not been monitoring blood sugars regularly. Furthermore, this current presentation of flailing in bed is of uncertain etiology, does not sound focal in nature, could be attributed to hypoglycemia, hypothermia, infection. PLAN: EEG, carotid ultrasound. Recommend labs including B12, folate, RPR. I think, provided the EEG is normal, the patient will ultimately need to be monitored to see what happens with cognition as depression is treated and as his medications are used more regularly and his CPAP regularly.
[2018-10-01] MEDS: ATORVASTATIN 20 MG TAB PO SCH (20:59)
[2018-10-01] MEDS ORDERED: DOXYCYCLINE HYCLATE 100 MG PO SCH (21:00)
[2018-10-01] MEDS: CARVEDILOL 12.5 MG TAB PO SCH (21:00)
[2018-10-01] MEDS ORDERED: FUROSEMIDE 40 MG TAB PO SCH (21:00)
[2018-10-01] MEDS: INSULIN GLARGINE SOLOSTAR 100 UNITS/ML 3 ML PEN SC SCH (22:45)
[2018-10-02] MEDS ORDERED: INSULIN ASPART 100 UNITS/ML 3 ML PEN SC SCH (02:00)
[2018-10-02] MEDS: PIPERACILLIN/TAZOBACTAM 4.5 GM in DEXTROSE 5% 100 ML IV SCH ×3 (03:36→18:15)
[2018-10-02 06:42] LABS: Basophils # (auto) 0.02 K/uL (0-0.2); Basophils % (auto) 0.2 %; Eosinophils # (auto) 0.31 K/uL (0-0.5); Eosinophils % (auto) 3.2 %; Hematocrit (blood only) 35.9 % (42-52); Hemoglobin 11.7 g/dL (14.0-18.0); Immature Granulocytes # (auto) 0.17 K/uL (0.00-0.02); Immature Granulocytes % (auto) 1.8 %; Lymphocytes # (auto) 1.88 K/uL (1.2-3.4); Lymphocytes % (auto) 19.7 %; Mean Corpuscular Hgb Conc 32.6 g/dL (32-36); Mean Corpuscular Volume 94.5 fL (80-100); Mean Platelet Volume 10.7 fL (7.4-10.4); Monocytes # (auto) 0.97 K/uL (0.11-0.59); Monocytes % (auto) 10.2 %; Neutrophils # (auto) 6.19 K/uL (1.4-6.5); Neutrophils % (auto) 64.9 %; Platelet Count 151 K/uL (130-400); RDW Coefficient of Variation 18.5 % (11.5-14.5); RDW Standard Deviation 63.8 fL (36.4-46.3); White Blood Count 9.54 K/uL (4.8-10.8)
[2018-10-02 06:55] LABS: INR 1.9 (0.9-1.1); Prothrombin Time 18.7 Seconds (9.0-12.0)
[2018-10-02 07:16] LABS: Calcium 8.3 mg/dl (8.5-10.1); Est GFR (African American) 28.9; Potassium 3.4 mmol/L (3.5-5.1)
[2018-10-02 07:25] LABS: Estimated Average Glucose 160 mg/dl
[2018-10-02] MEDS: INSULIN ASPART 100 UNITS/ML 3 ML PEN SC SCH ×4 (08:15→21:02)
[2018-10-02] MEDS: INSULIN GLARGINE SOLOSTAR 100 UNITS/ML 3 ML PEN SC SCH ×2 (08:18→21:00)
[2018-10-02] MEDS: CHOLECALCIFEROL 1,000 UNITS TAB PO SCH (08:37)
[2018-10-02] MEDS: SERTRALINE HCL 50 MG TABLET PO SCH (08:37)
[2018-10-02] MEDS: FOLIC ACID 1 MG TAB PO SCH (08:41)
[2018-10-02] MEDS: ASPIRIN 81 MG ECTAB PO SCH (08:42)
[2018-10-02] MEDS: CARVEDILOL 12.5 MG TAB PO SCH ×2 (08:47→21:00)
[2018-10-02] MEDS: SPIRONOLACTONE 25 MG TAB PO SCH (08:48)
[2018-10-02] MEDS: AMLODIPINE BESYLATE 5 MG TAB PO SCH (08:49)
[2018-10-02] MEDS ORDERED: WARFARIN SOD 10 MG TAB PO SCH (09:00)
[2018-10-02] MEDS ORDERED: ESCITALOPRAM OXALATE 10 MG TAB PO SCH (09:00)
[2018-10-02 09:03] LABS: Folate (Folic Acid) > 24.00 ng/ml (>5.38); Vitamin B12 1237 pg/ml (211-911)
--- NOTE | 2018-10-02 09:31 | CT Scan Report ---
CT SCAN OF THE BRAIN WITHOUT IV CONTRAST CLINICAL HISTORY: Fall. COMPARISON STUDY: CT of the brain dated 10/01/2018. TECHNIQUE: Unenhanced axial CT scan of the brain is performed from the vertex to the skull base. A do se lowering technique was utilized adhering to the principles of ALARA. The skull base was scanned tw ice due to motion artifact. CT DOSE: 909.11 mGy.cm FINDINGS: Brain parenchyma: There are age-related involutional changes noting mild subcortical and periventric ular microangiopathic change. There is no hemorrhage, mass effect, or evidence of acute territorial i schemia by CT criteria. Chi-white matter differentiation is preserved. No extra-axial fluid collecti on is seen. Ventricles, sulci, cisterns: Prominent secondary to involutional change. Intracranial vasculature: There is atherosclerotic calcification of the cavernous carotid and vertebr al arteries. Calvarium: The skeletal structures are osteopenic. No depressed calvarial fracture is identified. Sinuses and mastoids: There is trace mucosal thickening in the left maxillary antrum. The remaining v isualized paranasal sinuses are clear. The mastoid air cells are well pneumatized. Orbits: The bony orbits are grossly intact. There are bilateral ocular lens implants. IMPRESSION: There is no hemorrhage, mass effect, or evidence of acute territorial ischemia by CT deanna plaza. Electronically signed by: Jerome Stovall M.D. 10/02/2018 9:30 AM
--- NOTE | 2018-10-02 10:14 | Pharmacy Report ---
Pharmacy Glycemic Short Note 2 - Date of Service October 02, 2018 - Glycemic Short BSG Results (Last 24 hours): 10/01/18 10/01/18 10/01/18 11:54 16:40 21:00 Glucose POC Glucose 75 135 H 157 H 10/02/18 10/02/18 10/02/18 02:16 06:21 07:32 Glucose 72 POC Glucose 76 77 OUTPATIENT ANTIDIABETIC REGIMEN: * Levemir 25 units BID * Lispro 19 units w/ breakfast + 18 units w/ lunch + 24 units w/ dinner; and correction factor of 25mg/dL/unit * Patient has been depressed and confused and has stopped using meds at times in the recent past * A1c = ? % results pending Risk Factors for Insulin Resistance: * Infection? recent dx of pneumonia PATIENT IS CURRENTLY RECEIVING: * Lantus SQ BID per scale: * 0 units if BSG less than 120 * 12 units if BSG 120-180 * 18 units if BSG above 180 * Novolog * Goal range 120 - 160 mg/dL * Correction Factor: 20mg/dL/unit * Carb Ratio: 1 unit per 7 gm CHO - Assessment 10/02/18 * Glycemic control acceptable over the last 24hrs, however BSGs are running lower than desired for hospitalized patient * Patient's fasting BSGs in the 70s this AM w/ 12 units of Lantus on board from last night - will continue to taper dose down and omit dose this AM. * Will continue to check 0200 BSG to screen for hypoglycemia * Post-prandial BSG controlled yesterday w/ current CF/CR - however will reduce dose slightly today in light of BSGs in 70s this AM 10/01/18 * Type 2 diabetic with reported ongoing confusion for weeks along with depression. Found on floor by his after he sustained a fall. * He has a h/o medication non-compliance. I am hesitant to resume his home insulin regimen given this information along w/ the fact he was hypoglycemic on admission. Will instead base insulin doses upon patient's weight and mild- moderate stress level. * Will resume basal insulin this evening in the form of Lantus using a scale * Novolog correction and carb coverage will be based upon moderate stress level initially * A1c result is pending PLAN FOR INPATIENT GLYCEMIC CONTROL: * Hold outpatient oral diabetes medications * Basal insulin (dose reduction) * Lantus SQ BID per scale: * 0 units if BSG less than 120 * 10 units if BSG 120-180 * 15 units if BSG above 180 * Bolus insulin (dose reduction) * NovoLog per scale ACHS and at 0200 to screen for hypo- * Goal Range: Low 120 mg/dL - High 160 mg/dL * Correction Factor: 25 mg/dL/unit * Nutritional / Prandial insulin per carb ratio of 1 unit per 8 grams CHO consumed PLAN FOR DISCHARGE: * It appears he will require a substantial reduction in his outpt insulin doses based upon the current trend. Will continue to monitor and update recommendations.
--- NOTE | 2018-10-02 13:43 | Procedure Note ---
EEG Procedure Note Date of Service October 02, 2018 Start / End Times Start Time: 0800 End Time: 0825 Referring Physician Jennifer Leon MD History frequent falls, confusion, cognitive declind and depression accelerating over past year and worse for two months Home Medication List Home Medications Medication Instructions Recorded Confirmed Type amlodipine 5 mg PO DAILY 08/20/18 10/01/18 History aspirin [Aspir-81] 81 mg PO DAILY 08/20/18 10/01/18 History carvedilol 12.5 mg PO BID 08/20/18 10/01/18 History cholecalciferol (vitamin D3) 1,000 unit PO DAILY 08/20/18 10/01/18 History [Vitamin D3] folic acid 5 mg PO DAILY 08/20/18 10/01/18 History furosemide 80 mg PO BID 08/20/18 10/01/18 History insulin detemir U-100 [Levemir 25 units SUBCUT AMHS 08/20/18 10/01/18 History FlexTouch U-100 Insuln] insulin lispro [Humalog KwikPen 0 unit SUBCUT UD 08/20/18 10/01/18 History Insulin] spironolactone 12.5 mg PO DAILY 08/20/18 10/01/18 History warfarin 10 mg PO DAILY 08/20/18 10/01/18 History doxycycline hyclate 100 mg PO BID 10 Days #20 tab 09/28/18 10/01/18 Rx escitalopram oxalate 20 mg PO DAILY 09/28/18 10/01/18 History atorvastatin 20 mg PO HS 10/01/18 10/01/18 History calcitriol 0.5 mcg PO MOWEFR 10/01/18 10/01/18 History Inpatient Medication List Amlodipine Besylate (Norvasc) 5 mg PO DAILY [facility] Stop: 11/01/18 08:59 Last Admin: 10/02/18 08:49 Dose: Not Given Aspirin (Ecotrin Ectab) 81 mg PO DAILY [facility] Stop: 11/01/18 08:59 Last Admin: 10/02/18 08:42 Dose: 81 mg Atorvastatin Calcium (Lipitor) 20 mg PO HS [facility] Stop: 10/31/18 20:59 Last Admin: 10/01/18 20:59 Dose: 20 mg Calcitriol (Racaltrol) 0.5 mcg PO MoWeFr@0900 [facility] Stop: 10/31/18 12:14 Last Admin: 10/01/18 13:17 Dose: 0.5 mcg Carvedilol (Coreg) 12.5 mg PO BID [facility] Stop: 10/31/18 20:59 Last Admin: 10/02/18 08:47 Dose: 12.5 mg Admin: 10/01/18 21:00 Dose: 12.5 mg Folic Acid (Folvite) 5 mg PO DAILY [facility] Stop: 11/01/18 08:59 Last Admin: 10/02/18 08:41 Dose: 5 mg Furosemide (Lasix) 80 mg PO BID17 [facility] Stop: 10/31/18 16:59 Last Admin: 10/01/18 17:41 Dose: 80 mg Piperacillin Sod/Tazobactam (Sod 4.5 gm/ Dextrose) 120 mls @ 30 mls/hr IV Q8H [facility]; Protocol Stop: 10/03/18 12:14 Last Admin: 10/02/18 10:25 Dose: 30 mls/hr Infusion: 10/02/18 07:57 Dose: 0 mls/hr Admin: 10/02/18 03:36 Dose: 30 mls/hr Infusion: 10/01/18 21:55 Dose: 0 mls/hr Admin: 10/01/18 17:53 Dose: 30 mls/hr Insulin Aspart (Novolog Flexpen) 0 units SC ACHS [facility] Stop: 10/31/18 11:44 Last Admin: 10/02/18 12:04 Dose: 7 units Admin: 10/02/18 08:15 Dose: 4 units Admin: 10/01/18 21:03 Dose: Not Given Admin: 10/01/18 17:42 Dose: 9 units Admin: 10/01/18 13:16 Dose: Not Given Insulin Glargine (Lantus Solostar Pen) 0 units SC Q12 [facility]; Protocol Stop: 10/31/18 20:59 Last Admin: 10/02/18 08:18 Dose: Not Given Admin: 10/01/18 22:45 Dose: 12 units Sertraline HCl (Zoloft) 50 mg PO QAM [facility] Stop: 11/01/18 08:59 Last Admin: 10/02/18 08:37 Dose: 50 mg Spironolactone (Aldactone) 12.5 mg PO DAILY [facility] Stop: 11/01/18 08:59 Last Admin: 10/02/18 08:48 Dose: 12.5 mg Vitamin D (Vitamin D3) 1,000 units PO DAILY [facility] Stop: 11/01/18 08:59 Last Admin: 10/02/18 08:37 Dose: 1,000 units Discontinued Medications Dextrose (Dextrose 50%) Confirm Administered Dose 50 ml IV .STK-MED ONE Stop: 10/01/18 08:45 Last Admin: 10/01/18 08:54 Dose: Not Given Dextrose (Dextrose 50%) 50 ml IV NOW ONE Stop: 10/01/18 08:51 Last Admin: 10/01/18 08:53 Dose: 50 ml Doxycycline Hyclate (Vibramycin) 100 mg PO BID [facility] Stop: 10/08/18 12:14 Last Admin: 10/01/18 13:17 Dose: 100 mg Gelatin (Surgifoam Sponge 12-7mm (Small)) 1 ea EXT NOW ONE Stop: 10/01/18 08:05 Last Admin: 10/01/18 08:33 Dose: 4 ea Piperacillin Sod/Tazobactam (Sod 4.5 gm/ Dextrose) 120 mls @ 200 mls/hr IV NOW ONE; Protocol Stop: 10/01/18 12:50 Last Infusion: 10/01/18 13:55 Dose: 0 mls/hr Admin: 10/01/18 13:17 Dose: 200 mls/hr Insulin Aspart (Novolog Flexpen) 0 units SC TODAY@0200 [facility] Stop: 10/02/18 02:01 Last Admin: 10/02/18 02:28 Dose: Not Given Description This is a 21 electrode EEG with a single channel dedicated to limited EKG. The electrodes were placed in accordance with the International 10-20 system. The study is done during wakefulness with photic stimulation as the only activation procedure video analysis of movements and behavior is recorded as well Overall there is a normal alpha rhythm posteriorly a normal central theta with rare isolated low amplitude delta waves and low voltage symmetrical beta activity without any clear potentially epileptogenic patterns and with no sharp and slow wave or triphasic wave activity that might suggest a slow virus disorder or a metbolic encephalopathy related to hypoxia or hyperammonemia Frequent myogenic discharges correlating with head and neck movements are seen phostic stumulation induced no important changes. Interpretation Essentially normal waking eeg for age without epileptiiform activity or focal abnormalities of significance Clinical Correlation Normal awake eeg see above description for details and pertinent negative indings Don Rand MD
--- NOTE | 2018-10-02 14:20 | Neurology Progress Note ---
Date of Service October 02, 2018 Assessment & Plan (1) Fall: 1. EEG- no seizure focus 2. labs [id number], folate >24, RPR-ordered 3. unable to have MRI due to pacemaker 4. carotid doppler- done 5. CT head- repeat with no bleeding or evidence of stroke 6. cognitive issues- will need further evaluate and observation 7. restart c pap at night to help with sleep cycles 8. restart chronic medications -nursing safety check and evaluation at home would be helpful Pt seen, awake alert, cooperative. CT head repeat no hemorrhage. EEG, no sz activity. Imp encephalopathy, improved, possibly related to nocturnal hypoxemia , erratic glucose control. Will need to follow mental status as metabolic etiologies are improving. If not back to premorbid status will need additional work-up. BRITTON Leon MD Supervising Physician Co-Signing Physician Notes I have seen and discussed above patient with Dr Jennifer Leon, neurology Subjective Colin is an 83 year old right-handed male with PMH AF on coumadin, DM2, HTN, HLD , MARLON (currently no on bipap, CKD III, sinus node dysfunction, with pacemaker, CHF, pulmonary hamartoma. He was found on the floor by his bleeding. His son thought his cognitive issues have been getting worse. He has been depressed and crying for the past 2 months. He stopped taking his medications and not paying the bills appropriately. He was started on Lexapro about 10 days ago. His reports he has become agitated during sleep, flailing his arms. He is awake and oriented, states he remembers rolling out of bed onto the floor. He states the EMS came and brought him to the hospital. He knows he stopped his medications but he didn't do it intensionally and feels silly about it. denies CP, SOB, abdominal pain, one sided weakness, numbness tingling, swallowing issues, vision changes, new bowel or bladder issues. 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 bilaterally hip flex plantar flex ext oriented to 2019, Trelina, month September, yesterday K day, [facility], and lives in [place] finger to nose with no bi pass facial may areas of ecchymosis with some random edema left arm ecchymosis and open area on arm and leg no pronatory drift Results & Data Laboratory Results Abnormal Labs 10/01/18 10/01/18 10/01/18 07:48 07:48 07:48 WBC 13.00 H RBC 4.03 L Hgb 12.9 L Hct 38.4 L RDW Std Deviation 63.0 H RDW Coeff of Nadege 18.0 H MPV 11.1 H Immature Gran # (Auto) 0.19 H Neut # (Auto) 11.03 H Lymph # (Auto) 0.98 L [place] # (Auto) 0.74 H PT 18.1 H INR 1.9 H Sodium Potassium Anion Gap 12.0 H BUN 41 H Creatinine 2.04 H Glucose 50 L* POC Glucose Hemoglobin A1c Calcium Albumin 3.2 L Globulin 4.1 H Albumin/Globulin Ratio 0.8 L Vitamin B12 Urine Protein Urine Blood 10/01/18 10/01/18 10/01/18 08:03 09:10 16:40 WBC RBC Hgb Hct RDW Std Deviation RDW Coeff of Nadege MPV Immature Gran # (Auto) Neut # (Auto) Lymph # (Auto) [place] # (Auto) PT INR Sodium Potassium Anion Gap BUN Creatinine Glucose POC Glucose 145 H 135 H Hemoglobin A1c Calcium Albumin Globulin Albumin/Globulin Ratio Vitamin B12 Urine Protein 2+ H Urine Blood 1+ H 10/01/18 10/02/18 10/02/18 21:00 06:21 06:21 WBC RBC 3.80 L Hgb 11.7 L Hct 35.9 L RDW Std Deviation 63.8 H RDW Coeff of Nadege 18.5 H MPV 10.7 H Immature Gran # (Auto) 0.17 H Neut # (Auto) Lymph # (Auto) [place] # (Auto) 0.97 H PT 18.7 H INR 1.9 H Sodium Potassium Anion Gap BUN Creatinine Glucose POC Glucose 157 H Hemoglobin A1c Calcium Albumin Globulin Albumin/Globulin Ratio Vitamin B12 Urine Protein Urine Blood 10/02/18 10/02/18 10/02/18 06:21 06:21 06:21 WBC RBC Hgb Hct RDW Std Deviation RDW Coeff of Nadege MPV Immature Gran # (Auto) Neut # (Auto) Lymph # (Auto) [place] # (Auto) PT INR Sodium 134 L Potassium 3.4 L Anion Gap BUN 42 H Creatinine 2.34 H D Glucose POC Glucose Hemoglobin A1c 7.2 H Calcium 8.3 L Albumin Globulin Albumin/Globulin Ratio Vitamin B12 1237 H Urine Protein Urine Blood 10/02/18 11:08 WBC RBC Hgb Hct RDW Std Deviation RDW Coeff of Nadege MPV Immature Gran # (Auto) Neut # (Auto) Lymph # (Auto) [place] # (Auto) PT INR Sodium Potassium Anion Gap BUN Creatinine Glucose POC Glucose 155 H Hemoglobin A1c Calcium Albumin Globulin Albumin/Globulin Ratio Vitamin B12 Urine Protein Urine Blood Diagnostic Findings EEG- Essentially normal waking eeg for age without epileptiiform activity or focal abnormalities of significance _ (1) Fall Encounter type: initial encounter Qualified Code(s): W19.XXXA - Unspecified fall, initial encounter
[2018-10-02] MEDS ORDERED: POTASSIUM CHLORIDE 10 MEQ TABCR PO STA (15:27)
--- NOTE | 2018-10-02 15:44 | Ultrasound Report ---
US carotid doppler BI CLINICAL HISTORY: 83 years-old Male presenting with episode of altered conscience. TECHNIQUE: Real-time grayscale and color and spectral Doppler ultrasound imaging of the bilateral car otid arteries was performed. NASCET criteria was used in evaluating this study. COMPARISON: None. FINDINGS: RIGHT: Common carotid artery (CCA): Atherosclerosis at the carotid bulb. Peak systolic velocity (PSV) 39 cm/ s. Internal carotid artery (ICA): Atherosclerosis of the proximal ICA. PSV 46 cm/s. End diastolic veloci ty (EDV) 11 cm/s. ICA/CCA (systolic) ratio: 1.2. External carotid artery (ECA): Atherosclerosis. PSV 66 cm/s. LEFT: CCA: Atherosclerosis at the carotid bulb. PSV 48 cm/s. ICA: Atherosclerosis of the proximal ICA. PSV 41 cm/s. EDV 11 cm/s. ICA/CCA (systolic) ratio: 0.9. ECA: Atherosclerosis. PSV 50 cm/s. Bilateral antegrade flow within the vertebral arteries. Blood pressure: Brachial: Right: 125/52 mmHg, Left: 114/45 mmHg. Reference ranges: Stenosis measurements are compared to reference velocity parameters by the Society of Radiologists in Ultrasound (SRU) consensus and Sonographic NASCET index (S-NASCET). * SRU Primary parameters: ICA PSV <125 cm/s = normal or less than 50% stenosis; ICA PSV 125-230 cm/s = 50-69% stenosis; ICA PSV >230 cm/s = greater than or equal to 70% stenosis. * SRU Additional parameters: ICA/CCA PSV ratio <2 = normal or less than 50% stenosis; ratio 2-4 = 5 0-69% stenosis; ratio >4 = greater than or equal to 70% stenosis. ICA EDV <40 cm/s = normal or less t wilkins 50% stenosis; ICA EDV 40-100 cm/s = 50-69% stenosis; ICA EDV >100 cm/s = greater than or equal to 70% stenosis. * S-NASCET parameters: Deceleration spectral broadening + PSV <125 cm/s = less than 50% stenosis; pa nsystolic spectral broadening + PSV <125 cm/s = 16-49% stenosis; pansystolic spectral broadening + PS V >125 cm/s + EDV <110 cm/s or ICA/CCA PSV ratio 2-4 = 50-69% stenosis; pansystolic spectral broadeni ng + PSV >270 cm/s OR EDV >110 cm/s OR ICA/CCA PSV ratio >4 = 70-79% stenosis; EDV >140 cm/s = 80-99% stenosis. IMPRESSION: 1. Atherosclerosis without hemodynamically significant stenosis in the carotid arteries. Electronically signed by: Meet Mehta M.D. 10/02/2018 3:43 PM
--- NOTE | 2018-10-02 15:49 | Hospitalist Progress Note ---
Date of Service October 02, 2018 Assessment & Plan (1) Altered mental status: This is an 83-year-old male with significant past medical history of chronic atrial fibrillation on warfarin, T2 DM, HTN, HLD, MARLON not tolerant to CPAP, CKD stage IV, sinus node dysfunction status post permanent pacemaker, history of congestive heart failure, pulmonary hamartoma who presents to [facility] secondary to being found on floor at 4 AM by and son. -- from not using CPAP with possible underlying Dementia and Depression -- CPAP ordered, encouraged use Neurology consulted repeat CT head no acute process EEG no signs of seizure activity Vit B12, Folate, TSH normal monitor for improvement of cognitive and psychiatric status after consistent use of CPAP (2) Fall: -unknown mechanism of action given found on floor near the bed, in prone position -numerous abrasions, ecchymosis -consult wound care of skin tears -imaging as noted - likely from sleep disturbance,nocturnal hypoxia? encouraged consistent use of CPAP (3) Hypothermia: -most likely in setting of fall, on ground ~4 hrs, hypoglycemia -- temp within normal limits after correction of hypogglycemia r/o underlying infection cultures pending only obvious source is sinusitis on empiric Zosyn Day 2, remains afebrile, transition to Augmentin tomorrow if afebrile, no leukocytosis (4) T2DM (type 2 diabetes mellitus): a1c 7.2 -consult pharmacy for glycemic management -was on Lantus 25 unit AM/HS -Humalog AC 19 units breakfast, 18 units Lunch and 24 units dinner - may need to lower Insulin doses to prevent hypoglycemia (5) Depression: -recently started on lexapro 10mg daily on 09/21, then titrated to 20mg daily on 09/26; however patient had not been taking any meds. - Psych consulted Lexapro changed to Zoloft (6) CKD stage 4 due to type 2 diabetes mellitus: -baseline Cr 2.2-2.4 - crea 2.3 Lasix reduced to 40mg BID, from 80mg BID to prevent hypotension, dehydration Aldactone continued (7) Atrial fibrillation: -currently rate and rhythm controlled with coreg, pacemaker -anticoagulated on warfarin, INR 1.9 today resume coumadin monitor ecchymoses, Hg -INR in a.m. (8) Congestive heart failure: -Last Echocardiogram 12/2017 EF 50-55% LVH, mild aortic valve stenosis, mild MR, small apical septal/inferior wall motion abn possibly consistent with venricular pacemaker -on regimen of coreg, Lasix 80mg bid, aldactone 12.5mg daily - Lasix reduced to 40mg BID, from 80mg BID to prevent hypotension, dehydration Aldactone continued (9) Hypertension: -blood pressure controlled on amlodipine, lasix, aldactone, coreg -monitor, hold parameters in place (10) Dyslipidemia: -continue atorvastatin (11) History of pacemaker: -pacemaker interrogation ordered (12) DVT prophylaxis: DVT px coumadin Disposition: may need Rehab /SNF Follow up: PCP Dr. Yoon upon discharge Subjective ff up for altered mental status, hypothermia seen resting in bed, comfortable oriented x 2, answers questions appropriately denies headache, dizziness, focal neuro symptoms denies chest pain, dyspnea states he slept well overnight, was not able to use CPAP- patient declined per RN states mood is fine today feels improved compared to yesterday Physical Exam 2 Vital Signs (Past 24 Hours): Last Vital Signs Temp 35.7 C L 10/02/18 11:01 Pulse 62 10/02/18 11:01 Resp 16 10/02/18 11:01 BP 111/48 L 10/02/18 11:01 Pulse Ox 97 10/02/18 11:01 Physical Exam: General- oriented x 2, not in distress, speaks in sentences with no effort or accessory muscle use Eyes- anicteric Neck- no JVD Face- small areas of hematoma on the face Lungs- clear breath sounds bilaterally, no rales/wheezes Heart- normal rate, regular rhythm; no murmurs Abdomen- normal bowel sounds, nondistended, soft, nontender Extremities- right forearm: (+) wrapped in gauze dressing left forearm: scattered areas of ecchymoses, skin tears on the dorsum of the hand and one in the forearm no pretibial edema, no calf tenderness Neuro- alert, oriented x 2; no gross focal neurologic deficits Skin- warm & dry Results & Data Laboratory Results Laboratory Results - last 24 hr 10/01/18 10/02/18 10/02/18 21:00 02:16 06:21 WBC 9.54 RBC 3.80 L Hgb 11.7 L Hct 35.9 L MCV 94.5 MCH 30.8 MCHC 32.6 RDW Std Deviation 63.8 H RDW Coeff of Nadege 18.5 H Plt Count 151 MPV 10.7 H Immature Gran % (Auto) 1.8 Neut % (Auto) 64.9 Lymph % (Auto) 19.7 [place] % (Auto) 10.2 Eos % (Auto) 3.2 Baso % (Auto) 0.2 Immature Gran # (Auto) 0.17 H Neut # (Auto) 6.19 Lymph # (Auto) 1.88 [place] # (Auto) 0.97 H Eos # (Auto) 0.31 Baso # (Auto) 0.02 PT INR Sodium Potassium Chloride Carbon Dioxide Anion Gap BUN Creatinine Est Cr Clr Drug Dosing Est GFR ( Amer) Est GFR (Non-Af Amer) BUN/Creatinine Ratio Glucose POC Glucose 157 H 76 Estimat Average Glucose Hemoglobin A1c Calcium Magnesium Triglycerides Cholesterol LDL Cholesterol, Calc VLDL Cholesterol, Calc HDL Cholesterol Cholesterol/HDL Ratio Vitamin B12 Folate 10/02/18 10/02/18 10/02/18 06:21 06:21 06:21 WBC RBC Hgb Hct MCV MCH MCHC RDW Std Deviation RDW Coeff of Nadege Plt Count MPV Immature Gran % (Auto) Neut % (Auto) Lymph % (Auto) [place] % (Auto) Eos % (Auto) Baso % (Auto) Immature Gran # (Auto) Neut # (Auto) Lymph # (Auto) [place] # (Auto) Eos # (Auto) Baso # (Auto) PT 18.7 H INR 1.9 H Sodium 134 L Potassium 3.4 L Chloride 102 Carbon Dioxide 26 Anion Gap 6.0 BUN 42 H Creatinine 2.34 H D Est Cr Clr Drug Dosing 31.0 Est GFR ( Amer) 28.9 Est GFR (Non-Af Amer) 25.0 BUN/Creatinine Ratio 18.0 Glucose 72 POC Glucose Estimat Average Glucose 160 Hemoglobin A1c 7.2 H Calcium 8.3 L Magnesium 2.0 Triglycerides 79 Cholesterol 115 LDL Cholesterol, Calc 64 VLDL Cholesterol, Calc 16 HDL Cholesterol 35 Cholesterol/HDL Ratio 3 Vitamin B12 Folate 10/02/18 10/02/18 10/02/18 06:21 07:32 11:08 WBC RBC Hgb Hct MCV MCH MCHC RDW Std Deviation RDW Coeff of Nadege Plt Count MPV Immature Gran % (Auto) Neut % (Auto) Lymph % (Auto) [place] % (Auto) Eos % (Auto) Baso % (Auto) Immature Gran # (Auto) Neut # (Auto) Lymph # (Auto) [place] # (Auto) Eos # (Auto) Baso # (Auto) PT INR Sodium Potassium Chloride Carbon Dioxide Anion Gap BUN Creatinine Est Cr Clr Drug Dosing Est GFR ( Amer) Est GFR (Non-Af Amer) BUN/Creatinine Ratio Glucose POC Glucose 77 155 H Estimat Average Glucose Hemoglobin A1c Calcium Magnesium Triglycerides Cholesterol LDL Cholesterol, Calc VLDL Cholesterol, Calc HDL Cholesterol Cholesterol/HDL Ratio Vitamin B12 1237 H Folate > 24.00 10/02/18 10/02/18 16:24 20:09 WBC RBC Hgb Hct MCV MCH MCHC RDW Std Deviation RDW Coeff of Nadege Plt Count MPV Immature Gran % (Auto) Neut % (Auto) Lymph % (Auto) [place] % (Auto) Eos % (Auto) Baso % (Auto) Immature Gran # (Auto) Neut # (Auto) Lymph # (Auto) [place] # (Auto) Eos # (Auto) Baso # (Auto) PT INR Sodium Potassium Chloride Carbon Dioxide Anion Gap BUN Creatinine Est Cr Clr Drug Dosing Est GFR ( Amer) Est GFR (Non-Af Amer) BUN/Creatinine Ratio Glucose POC Glucose 177 H 267 H Estimat Average Glucose Hemoglobin A1c Calcium Magnesium Triglycerides Cholesterol LDL Cholesterol, Calc VLDL Cholesterol, Calc HDL Cholesterol Cholesterol/HDL Ratio Vitamin B12 Folate _ (1) T2DM (type 2 diabetes mellitus) Chronic kidney disease stage: stage 4 (severe) Diabetes mellitus complication detail: with chronic kidney disease Diabetes mellitus complication status: with kidney complications 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 insulin use: with alf use Diabetes mellitus macular edema: Diabetic retinopathy severity: Laterality: Proliferative retinopathy type: Qualified Code(s): E11.22 - Type 2 diabetes mellitus with diabetic chronic kidney disease; N18.4 - Chronic kidney disease, stage 4 (severe); Z79.4 - termite treater (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 of 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 (2) Congestive heart failure Heart failure chronicity: acute on chronic Heart failure type: unspecified Qualified Code(s): I50.9 - Heart failure, unspecified (3) Atrial fibrillation Atrial fibrillation type: chronic Qualified Code(s): I48.2 - Chronic atrial fibrillation (4) Depression Active/Remission status: Depression Type: unspecified Major depression episode severity: Major depression recurrence: Psychotic features: Trimester: Qualified Code(s): F32.9 - Major depressive disorder, single episode, unspecified (5) Hypothermia Encounter type: subsequent encounter Qualified Code(s): T68.XXXD - Hypothermia, subsequent encounter (6) Altered mental status Altered mental status type: transient alteration of awareness Coma depth: Coma timing: Qualified Code(s): R40.4 - Transient alteration of awareness (7) Hypertension Hypertension type: essential hypertension Qualified Code(s): I10 - Essential (primary) hypertension (8) Fall Encounter type: subsequent encounter Qualified Code(s): W19.XXXD - Unspecified fall, subsequent encounter
[2018-10-02] MEDS: FUROSEMIDE 40 MG TAB PO SCH (16:28)
[2018-10-02] MEDS: ATORVASTATIN 20 MG TAB PO SCH (21:00)
--- NOTE | 2018-10-02 22:11 | Procedure Note ---
EEG Procedure Note Date of Service October 02, 2018 Start / End Times Start Time: 08:04 End Time: 08:27 Referring Physician Jennifer Ibarra PA-C History An 83 year old male admitted with encephalopathy and fall. EEG performed for evaluation of epileptiform activity. Home Medication List Home Medications Medication Instructions Recorded Confirmed Type amlodipine 5 mg PO DAILY 08/20/18 10/01/18 History aspirin [Aspir-81] 81 mg PO DAILY 08/20/18 10/01/18 History carvedilol 12.5 mg PO BID 08/20/18 10/01/18 History cholecalciferol (vitamin D3) 1,000 unit PO DAILY 08/20/18 10/01/18 History [Vitamin D3] folic acid 5 mg PO DAILY 08/20/18 10/01/18 History furosemide 80 mg PO BID 08/20/18 10/01/18 History insulin detemir U-100 [Levemir 25 units SUBCUT AMHS 08/20/18 10/01/18 History FlexTouch U-100 Insuln] insulin lispro [Humalog KwikPen 0 unit SUBCUT UD 08/20/18 10/01/18 History Insulin] spironolactone 12.5 mg PO DAILY 08/20/18 10/01/18 History warfarin 10 mg PO DAILY 08/20/18 10/01/18 History doxycycline hyclate 100 mg PO BID 10 Days #20 tab 09/28/18 10/01/18 Rx escitalopram oxalate 20 mg PO DAILY 09/28/18 10/01/18 History atorvastatin 20 mg PO HS 10/01/18 10/01/18 History calcitriol 0.5 mcg PO MOWEFR 10/01/18 10/01/18 History Inpatient Medication List Amlodipine Besylate (Norvasc) 5 mg PO DAILY [facility] Stop: 11/01/18 08:59 Last Admin: 10/02/18 08:49 Dose: Not Given Aspirin (Ecotrin Ectab) 81 mg PO DAILY [facility] Stop: 11/01/18 08:59 Last Admin: 10/02/18 08:42 Dose: 81 mg Atorvastatin Calcium (Lipitor) 20 mg PO HS [facility] Stop: 10/31/18 20:59 Last Admin: 10/02/18 21:00 Dose: 20 mg Admin: 10/01/18 20:59 Dose: 20 mg Calcitriol (Racaltrol) 0.5 mcg PO [id number]@[id number] [facility] Stop: 10/31/18 12:14 Last Admin: 10/01/18 13:17 Dose: 0.5 mcg Carvedilol (Coreg) 12.5 mg PO BID [facility] Stop: 10/31/18 20:59 Last Admin: 10/02/18 21:00 Dose: 12.5 mg Admin: 10/02/18 08:47 Dose: 12.5 mg Admin: 10/01/18 21:00 Dose: 12.5 mg Folic Acid (Folvite) 5 mg PO DAILY [facility] Stop: 11/01/18 08:59 Last Admin: 10/02/18 08:41 Dose: 5 mg Furosemide (Lasix) 40 mg PO BID17 [facility] Stop: 11/01/18 16:59 Last Admin: 10/02/18 16:28 Dose: 40 mg Piperacillin Sod/Tazobactam (Sod 4.5 gm/ Dextrose) 120 mls @ 30 mls/hr IV Q8H [facility]; Protocol Stop: 10/03/18 12:14 Last Admin: 10/02/18 18:15 Dose: 30 mls/hr Infusion: 10/02/18 13:52 Dose: 0 mls/hr Admin: 10/02/18 10:25 Dose: 30 mls/hr Infusion: 10/02/18 07:57 Dose: 0 mls/hr Admin: 10/02/18 03:36 Dose: 30 mls/hr Infusion: 10/01/18 21:55 Dose: 0 mls/hr Admin: 10/01/18 17:53 Dose: 30 mls/hr Insulin Aspart (Novolog Flexpen) 0 units SC ACHS [facility] Stop: 10/31/18 11:44 Last Admin: 10/02/18 21:02 Dose: 7 units Admin: 10/02/18 16:45 Dose: 10 units Admin: 10/02/18 12:04 Dose: 7 units Admin: 10/02/18 08:15 Dose: 4 units Admin: 10/01/18 21:03 Dose: Not Given Admin: 10/01/18 17:42 Dose: 9 units Admin: 10/01/18 13:16 Dose: Not Given Insulin Glargine (Lantus Solostar Pen) 0 units SC Q12 [facility]; Protocol Stop: 10/31/18 20:59 Last Admin: 10/02/18 21:00 Dose: 15 units Admin: 10/02/18 08:18 Dose: Not Given Admin: 10/01/18 22:45 Dose: 12 units Sertraline HCl (Zoloft) 50 mg PO QAM [facility] Stop: 11/01/18 08:59 Last Admin: 10/02/18 08:37 Dose: 50 mg Spironolactone (Aldactone) 12.5 mg PO DAILY [facility] Stop: 11/01/18 08:59 Last Admin: 10/02/18 08:48 Dose: 12.5 mg Vitamin D (Vitamin D3) 1,000 units PO DAILY [facility] Stop: 11/01/18 08:59 Last Admin: 10/02/18 08:37 Dose: 1,000 units Warfarin Sodium (Coumadin) 10 mg PO DAILY@1600 [facility] Stop: 10/31/18 15:59 Last Admin: 10/02/18 16:34 Dose: 10 mg Discontinued Medications Dextrose (Dextrose 50%) Confirm Administered Dose 50 ml IV .STK-MED [facility] Stop: 10/01/18 08:45 Last Admin: 10/01/18 08:54 Dose: Not Given Dextrose (Dextrose 50%) 50 ml IV NOW ONE Stop: 10/01/18 08:51 Last Admin: 10/01/18 08:53 Dose: 50 ml Doxycycline Hyclate (Vibramycin) 100 mg PO BID [facility] Stop: 10/08/18 12:14 Last Admin: 10/01/18 13:17 Dose: 100 mg Furosemide (Lasix) 80 mg PO BID17 [facility] Stop: 10/31/18 16:59 Last Admin: 10/01/18 17:41 Dose: 80 mg Gelatin (Surgifoam Sponge 12-7mm (Small)) 1 ea EXT NOW ONE Stop: 10/01/18 08:05 Last Admin: 10/01/18 08:33 Dose: 4 ea Piperacillin Sod/Tazobactam (Sod 4.5 gm/ Dextrose) 120 mls @ 200 mls/hr IV NOW ONE; Protocol Stop: 10/01/18 12:50 Last Infusion: 10/01/18 13:55 Dose: 0 mls/hr Admin: 10/01/18 13:17 Dose: 200 mls/hr Insulin Aspart (Novolog Flexpen) 0 units SC TODAY@0200 [facility] Stop: 10/02/18 02:01 Last Admin: 10/02/18 02:28 Dose: Not Given Potassium Chloride (Klor-Con M10) 20 meq PO NOW STA Stop: 10/02/18 15:28 Last Admin: 10/02/18 16:27 Dose: 20 meq Description REPORT: This is a 21 electrode EEG with a single channel dedicated to limited EKG. The electrodes were placed in accordance with the International 10-20 system. At the onset of the EEG the patient is awake. The posterior dominant rhythm is 6-7 Hz. Anteriorly there is a mixture of low amplitude indeterminate faster frequencies. There are periods of the record obscure by myogenic or movement artifact. No stage II sleep transients are seen. Photic stimulation is performed and does not ilicit any additional abnormalities. IMPRESSION: This is an abnormal EEG due to generalized background slowing suggestive of a non specific encephalopathy. There is no evidence of epileptiform activity.
[2018-10-03] MEDS ORDERED: INSULIN ASPART 100 UNITS/ML 3 ML PEN SC SCH (02:00)
[2018-10-03] MEDS: PIPERACILLIN/TAZOBACTAM 4.5 GM in DEXTROSE 5% 100 ML IV SCH (02:11)
[2018-10-03 06:31] LABS: Basophils # (auto) 0.01 K/uL (0-0.2); Basophils % (auto) 0.1 %; Eosinophils # (auto) 0.39 K/uL (0-0.5); Eosinophils % (auto) 4.9 %; Hematocrit (blood only) 35.4 % (42-52); Hemoglobin 11.4 g/dL (14.0-18.0); Immature Granulocytes # (auto) 0.18 K/uL (0.00-0.02); Immature Granulocytes % (auto) 2.3 %; Lymphocytes # (auto) 1.73 K/uL (1.2-3.4); Lymphocytes % (auto) 21.8 %; Mean Corpuscular Hgb Conc 32.2 g/dL (32-36); Mean Corpuscular Volume 94.7 fL (80-100); Mean Platelet Volume 10.7 fL (7.4-10.4); Monocytes # (auto) 0.81 K/uL (0.11-0.59); Monocytes % (auto) 10.2 %; Neutrophils % (auto) 60.7 %; Platelet Count 152 K/uL (130-400); RDW Coefficient of Variation 18.4 % (11.5-14.5); RDW Standard Deviation 63.5 fL (36.4-46.3); Red Blood Count 3.74 M/uL (4.7-6.1); White Blood Count 7.92 K/uL (4.8-10.8)
[2018-10-03 06:49] LABS: INR 1.9 (0.9-1.1); Prothrombin Time 18.7 Seconds (9.0-12.0)
[2018-10-03] MEDS: SPIRONOLACTONE 25 MG TAB PO SCH (08:04)
[2018-10-03] MEDS: ASPIRIN 81 MG ECTAB PO SCH (08:05)
[2018-10-03] MEDS: CARVEDILOL 12.5 MG TAB PO SCH ×2 (08:05→20:28)
[2018-10-03] MEDS: FOLIC ACID 1 MG TAB PO SCH (08:06)
[2018-10-03] MEDS: FUROSEMIDE 40 MG TAB PO SCH (08:06)
[2018-10-03] MEDS: CALCITRIOL 0.25 MCG CAPSULE PO SCH (08:06)
[2018-10-03] MEDS: CHOLECALCIFEROL 1,000 UNITS TAB PO SCH (08:07)
[2018-10-03] MEDS: SERTRALINE HCL 50 MG TABLET PO SCH (08:07)
[2018-10-03] MEDS: INSULIN GLARGINE SOLOSTAR 100 UNITS/ML 3 ML PEN SC SCH ×2 (08:07→20:30)
[2018-10-03] MEDS: INSULIN ASPART 100 UNITS/ML 3 ML PEN SC SCH ×4 (08:11→20:31)
[2018-10-03] MEDS ORDERED: AMOXICILLIN/CLAVULANATE 500 MG TAB PO SCH (08:45)
[2018-10-03] MEDS: AMLODIPINE BESYLATE 5 MG TAB PO SCH (09:25)
[2018-10-03] MEDS ORDERED: AMOXICILLIN/CLAVULANATE 500 MG TAB PO ONE (10:00)
--- NOTE | 2018-10-03 11:27 | Pharmacy Report ---
Pharmacy Glycemic Short Note 2 - Date of Service October 03, 2018 - Glycemic Short BSG Results (Last 24 hours): 10/02/18 10/02/18 10/02/18 11:08 16:24 20:09 POC Glucose 155 H 177 H 267 H 10/03/18 10/03/18 02:02 07:22 POC Glucose 182 H 145 H OUTPATIENT ANTIDIABETIC REGIMEN: * Levemir 25 units BID * Lispro 19 units w/ breakfast + 18 units w/ lunch + 24 units w/ dinner; and correction factor of 25mg/dL/unit * Patient has been depressed and confused and has stopped using meds at times in the recent past * A1c = ? % results pending Risk Factors for Insulin Resistance: * Infection? recent dx of pneumonia PATIENT IS CURRENTLY RECEIVING: * Lantus SQ BID per scale: * 0 units if BSG less than 120 * 12 units if BSG 120-180 * 18 units if BSG above 180 * Novolog * Goal range 120 - 160 mg/dL * Correction Factor: 20mg/dL/unit * Carb Ratio: 1 unit per 7 gm CHO - Assessment 10/03/18 * BSGs well controlled with the exception of last evening's HS BSG of 267 - likely due to wearing off of Lantus as it had not been administered for 24 hrs * Fasting BSG 145 this AM w/ 15 units of Lantus on board along with 1 unit Novolog correction - will continue BID dosing with yesterday's scale * Post-prandial BSGs controlled w/ 2 of 3 meals yesterday - will continue to trial current CR/CF 10/02/18 * Glycemic control acceptable over the last 24hrs, however BSGs are running lower than desired for hospitalized patient * Patient's fasting BSGs in the 70s this AM w/ 12 units of Lantus on board from last night - will continue to taper dose down and omit dose this AM. * Will continue to check 0200 BSG to screen for hypoglycemia * Post-prandial BSG controlled yesterday w/ current CF/CR - however will reduce dose slightly today in light of BSGs in 70s this AM 10/01/18 * Type 2 diabetic with reported ongoing confusion for weeks along with depression. Found on floor by his after he sustained a fall. * He has a h/o medication non-compliance. I am hesitant to resume his home insulin regimen given this information along w/ the fact he was hypoglycemic on admission. Will instead base insulin doses upon patient's weight and mild- moderate stress level. * Will resume basal insulin this evening in the form of Lantus using a scale * Novolog correction and carb coverage will be based upon moderate stress level initially * A1c result is pending PLAN FOR INPATIENT GLYCEMIC CONTROL: * Basal insulin (no change) * Lantus SQ BID per scale: * 0 units if BSG less than 120 * 10 units if BSG 120-180 * 15 units if BSG above 180 * Bolus insulin (no change) * NovoLog per scale ACHS and at 0200 to screen for hypo- * Goal Range: Low 120 mg/dL - High 160 mg/dL * Correction Factor: 25 mg/dL/unit * Nutritional / Prandial insulin per carb ratio of 1 unit per 8 grams CHO consumed PLAN FOR DISCHARGE: * It appears he will require a substantial reduction in his outpt insulin doses based upon the current trend. Based upon the last 24 hrs would estimate his basal needs to be 10-15 units BID rather than 25 BID. His prandial insulin needs may only be 7-10 units per meal.
--- NOTE | 2018-10-03 15:24 | Neurology Progress Note ---
Date of Service October 03, 2018 Assessment & Plan (1) Fall: 1. EEG- no seizure focus 2. labs [id number], folate >24, RPR-ordered 3. unable to have MRI due to pacemaker 4. carotid doppler- done 5. CT head- repeat with no bleeding or evidence of stroke 6. cognitive issues- will need further evaluate and observation 7. restart c pap at night to help with sleep cycles 8. restart chronic medications -nursing safety check and evaluation at home would be helpful 9. discussed with family will see patient as outpatient once has rehab and returns home 10. PT/OT for discharge needs Supervising Physician Co-Signing Physician Notes I have seen and discussed above patient plan with Dr Jennifer Leon, neurology Subjective Colin is an 83 year old right-handed male with PMH AF on coumadin, DM2, HTN, HLD , MARLON (currently no on bipap, CKD III, sinus node dysfunction, with pacemaker, CHF, pulmonary hamartoma. He was found on the floor by his bleeding. His son thought his cognitive issues have been getting worse. He has been depressed and crying for the past 2 months. He stopped taking his medications and not paying the bills appropriately. He was started on Lexapro about 10 days ago. His reports he has become agitated during sleep, flailing his arms. He is awake and oriented, states he remembers rolling out of bed onto the floor. He states the EMS came and brought him to the hospital. He knows he stopped his medications but he didn't do it intensionally and feels silly about it. His son and are in the room today and waiting for physical therapy to make their assessment. denies CP, SOB, abdominal pain, one sided weakness, numbness tingling, swallowing issues, vision changes, new bowel or bladder issues. Physical Exam 2 Vital Signs (Past 24 Hours): Last Vital Signs Temp 36.4 C L 10/03/18 14:35 Pulse 60 10/03/18 14:35 Resp 20 10/03/18 14:35 BP 119/64 10/03/18 14:35 Pulse Ox 95 10/03/18 14:35 Gen: alert NAD, aware of [facility], 2018, can identify family in room lying in bed lungs course breath sounds CV RRR moves all ext spontaneously and on command Results & Data Laboratory Results Abnormal lab results 10/02/18 10/02/18 10/03/18 Range/Units 16:24 20:09 02:02 RBC (4.7-6.1) M/uL Hgb (14.0-18.0) g/dL Hct (42-52) % RDW Std Deviation (36.4-46.3) fL RDW Coeff of Nadege (11.5-14.5) % MPV (7.4-10.4) fL Immature Gran # (Auto) (0.00-0.02) K/uL Green # (Auto) (0.11-0.59) K/uL PT (9.0-12.0) Seconds INR (0.9-1.1) POC Glucose 177 H 267 H 182 H (70-99) 10/03/18 10/03/18 10/03/18 Range/Units 05:48 05:48 07:22 RBC 3.74 L (4.7-6.1) M/uL Hgb 11.4 L (14.0-18.0) g/dL Hct 35.4 L (42-52) % RDW Std Deviation 63.5 H (36.4-46.3) fL RDW Coeff of Nadege 18.4 H (11.5-14.5) % MPV 10.7 H (7.4-10.4) fL Immature Gran # (Auto) 0.18 H (0.00-0.02) K/uL Green # (Auto) 0.81 H (0.11-0.59) K/uL PT 18.7 H (9.0-12.0) Seconds INR 1.9 H (0.9-1.1) POC Glucose 145 H (70-99) 10/03/18 Range/Units 11:04 RBC (4.7-6.1) M/uL Hgb (14.0-18.0) g/dL Hct (42-52) % RDW Std Deviation (36.4-46.3) fL RDW Coeff of Nadege (11.5-14.5) % MPV (7.4-10.4) fL Immature Gran # (Auto) (0.00-0.02) K/uL Green # (Auto) (0.11-0.59) K/uL PT (9.0-12.0) Seconds INR (0.9-1.1) POC Glucose 136 H (70-99) _ (1) Fall Encounter type: initial encounter Qualified Code(s): W19.XXXA - Unspecified fall, initial encounter
[2018-10-03] MEDS ORDERED: WARFARIN SOD 10 MG TAB PO SCH (16:00)
[2018-10-03] MEDS: AMOXICILLIN/CLAVULANATE 500 MG TAB PO SCH (16:27)
--- NOTE | 2018-10-03 16:58 | Hospitalist Progress Note ---
Date of Service October 03, 2018 Assessment & Plan (1) Altered mental status: This is an 83-year-old male with significant past medical history of chronic atrial fibrillation on warfarin, T2 DM, HTN, HLD, MARLON not tolerant to CPAP, CKD stage IV, sinus node dysfunction status post permanent pacemaker, history of congestive heart failure, pulmonary hamartoma who presents to [facility] secondary to being found on floor by and son. Patient's family member also reported that in recent past the patient has been crying and started on antidepressants Fall -presumably patient fell and found to have facial bruising -unclear as to the direct cause of the initial falling at home -CT head imaging has been done and no acute process -PT/OT evaluations, possibly SNF vs rehab facility after the hospital stay Medical nonadherence at home Depression -Psychiatry consulted on 10/01/18 for med recs and possible involvement of lexapro in patient presentation and recommended to Discontinue Lexapro as QTC on today's EKG was 584 and this medication may increase risk of prolonged QTC interval and start Start Zoloft 50mg daily for Depression -EEG no signs of seizure activity -Vitamin B12, Folate, TSH normal -RPR levels pending -patient appears to be speaking with normal affect and answering questions appropriately and mental status is baseline (2) Fall: as above Obstructive sleep apnea -patient is non adherent to CPAP at home -may have difficulty with wearing CPAP for now given the facial bruising (3) Hypothermia: initial presentation concerning for hypothermia -blood cultures negative to date -Zosyn stopped and transitioned to Augmentin for possible sinusitis (4) T2DM (type 2 diabetes mellitus): -Hba1c 7.2 -pharmacy for glycemic management (5) Depression: management as above (6) CKD stage 4 due to type 2 diabetes mellitus: -baseline Cr 2.2-2.4 -monitor GFR (7) Atrial fibrillation: -currently rate and rhythm controlled with coreg, pacemaker -continue coumadin, trend INR (8) Congestive heart failure: -Last Echocardiogram 12/2017 EF 50-55% LVH, mild aortic valve stenosis, mild MR, small apical septal/inferior wall motion abn possibly consistent with venricular pacemaker -on regimen of coreg, Lasix 80mg bid, aldactone 12.5mg daily - inpatient Lasix had been reduced to 40mg BID, from 80mg BID to prevent hypotension, dehydration.continue this dosingfor now -continue Aldactone continued (9) Hypertension: -blood pressure controlled on amlodipine, lasix, aldactone, coreg (10) Dyslipidemia: -continue atorvastatin (11) History of pacemaker: -pacemaker functioning -transfer off telemetry on 10/03/18 (12) DVT prophylaxis: DVT px as coumadin Disposition: case management applying for skill fdc placement after the hospital stay Subjective patient appears to be speaking with normal affect and answering questions appropriately and mental status is baseline was not able to use CPAP at night because of bruises on the face denies headache, dizziness, or focal neurological symptoms denies chest pain, dyspnea Physical Exam 2 Vital Signs (Past 24 Hours): Last Vital Signs Temp 36.6 C 10/03/18 15:00 Pulse 59 L 10/03/18 15:00 Resp 16 10/03/18 15:00 BP 124/70 10/03/18 15:00 Pulse Ox 96 10/03/18 15:00 Constitutional: WD/WN, vitals as above Eyes: PERRL, conjunctivae normal, anicteric sclerae Respiratory: normal respiratory effort, lungs clear to auscultation Cardiovascular: Rate/Rhythm: + bradycardic Gastrointestinal (Abdomen): normal bowel sounds, soft, nontender, no hepatosplenomegaly Musculoskeletal: Head/Neck/Chest: + head abnormal to inspection (bruises near the chin and face) Neurologic: PERRL, EOMI, accommodation nl, no face palsy, no dysarthria CN' s II-XI intact bilaterally Psychiatric: A+Ox3, euthymic affect _ (1) T2DM (type 2 diabetes mellitus) Chronic kidney disease stage: stage 4 (severe) Diabetes mellitus complication detail: with chronic kidney disease Diabetes mellitus complication status: with kidney complications Diabetes mellitus watermelon harvesting supervisor insulin use: with watermelon harvesting supervisor use Diabetes mellitus macular edema: Diabetic retinopathy severity: Laterality: Proliferative retinopathy type: Qualified Code(s): E11.22 - Type 2 diabetes mellitus with diabetic chronic kidney disease; N18.4 - Chronic kidney disease, stage 4 (severe); Z79.4 - watermelon harvesting supervisor (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 of insulin (2) Congestive heart failure Heart failure chronicity: acute on chronic Heart failure type: unspecified Qualified Code(s): I50.9 - Heart failure, unspecified (3) Atrial fibrillation Atrial fibrillation type: chronic Qualified Code(s): I48.2 - Chronic atrial fibrillation (4) Depression Active/Remission status: Depression Type: unspecified Major depression episode severity: Major depression recurrence: Psychotic features: Trimester: Qualified Code(s): F32.9 - Major depressive disorder, single episode, unspecified (5) Hypothermia Encounter type: subsequent encounter Qualified Code(s): T68.XXXD - Hypothermia, subsequent encounter (6) Altered mental status Altered mental status type: transient alteration of awareness Coma depth: Coma timing: Qualified Code(s): R40.4 - Transient alteration of awareness (7) Hypertension Hypertension type: essential hypertension Qualified Code(s): I10 - Essential (primary) hypertension (8) Fall Encounter type: subsequent encounter Qualified Code(s): W19.XXXD - Unspecified fall, subsequent encounter
[2018-10-03] MEDS ORDERED: FUROSEMIDE 40 MG TAB PO SCH (17:00)
[2018-10-03] MEDS: ATORVASTATIN 20 MG TAB PO SCH (20:29)
[2018-10-03] MEDS ORDERED: ONDANSETRON INJ 2 MG/ML 2 ML VIAL IV PRN (22:32)
[2018-10-04] MEDS ORDERED: INSULIN ASPART 100 UNITS/ML 3 ML PEN SC SCH (02:00)
[2018-10-04 06:17] LABS: Basophils # (auto) 0.02 K/uL (0-0.2); Basophils % (auto) 0.1 %; Eosinophils # (auto) 0.19 K/uL (0-0.5); Eosinophils % (auto) 1.4 %; Hematocrit (blood only) 37.6 % (42-52); Hemoglobin 12.5 g/dL (14.0-18.0); Immature Granulocytes # (auto) 0.15 K/uL (0.00-0.02); Immature Granulocytes % (auto) 1.1 %; Lymphocytes # (auto) 0.34 K/uL (1.2-3.4); Lymphocytes % (auto) 2.5 %; Mean Corpuscular Hgb Conc 33.2 g/dL (32-36); Mean Corpuscular Volume 94.7 fL (80-100); Mean Platelet Volume 10.7 fL (7.4-10.4); Monocytes # (auto) 0.82 K/uL (0.11-0.59); Neutrophils # (auto) 12.26 K/uL (1.4-6.5); Neutrophils % (auto) 88.9 %; Platelet Count 166 K/uL (130-400); RDW Coefficient of Variation 18.6 % (11.5-14.5); RDW Standard Deviation 64.5 fL (36.4-46.3); Red Blood Count 3.97 M/uL (4.7-6.1); White Blood Count 13.78 K/uL (4.8-10.8)
[2018-10-04 06:35] LABS: INR 2.7 (0.9-1.1); Prothrombin Time 26.1 Seconds (9.0-12.0)
[2018-10-04 06:52] LABS: BUN Creatinine Ratio 20.4 (10-20); Calcium 8.8 mg/dl (8.5-10.1); Creatinine Clr Calc Pharmacy 31.1 ml/min; Est GFR (African American) 28.9; Magnesium 2.1 mg/dl (1.8-2.4)
[2018-10-04] MEDS ORDERED: FUROSEMIDE 40 MG TAB PO SCH (09:00)
[2018-10-04] MEDS: INSULIN ASPART 100 UNITS/ML 3 ML PEN SC SCH ×4 (09:07→20:39)
[2018-10-04] MEDS: CARVEDILOL 12.5 MG TAB PO SCH ×2 (09:08→20:35)
[2018-10-04] MEDS: INSULIN GLARGINE SOLOSTAR 100 UNITS/ML 3 ML PEN SC SCH ×2 (09:08→20:38)
[2018-10-04] MEDS: SPIRONOLACTONE 25 MG TAB PO SCH (09:09)
[2018-10-04] MEDS: SERTRALINE HCL 50 MG TABLET PO SCH (09:09)
[2018-10-04] MEDS: CHOLECALCIFEROL 1,000 UNITS TAB PO SCH (09:09)
[2018-10-04] MEDS: FOLIC ACID 1 MG TAB PO SCH (09:09)
[2018-10-04] MEDS: ASPIRIN 81 MG ECTAB PO SCH (09:09)
[2018-10-04] MEDS: AMOXICILLIN/CLAVULANATE 500 MG TAB PO SCH ×2 (09:10→17:42)
[2018-10-04] MEDS: AMLODIPINE BESYLATE 5 MG TAB PO SCH (09:10)
--- NOTE | 2018-10-04 15:19 | Hospitalist Progress Note ---
Date of Service October 04, 2018 Assessment & Plan (1) Altered mental status: This is an 83-year-old male with significant past medical history of chronic atrial fibrillation on warfarin, T2 DM, HTN, HLD, MARLON not tolerant to CPAP, CKD stage IV, sinus node dysfunction status post permanent pacemaker, history of congestive heart failure, pulmonary hamartoma who presents to [facility] secondary to being found on floor by and son. Patient's family member also reported that in recent past the patient has been crying and started on antidepressants Fall -presumably patient fell and found to have facial bruising -unclear as to the direct cause of the initial falling at home -CT head imaging has been done and no acute process -PT/OT evaluations Medical nonadherence at home Depression -Psychiatry consulted on 10/01/18 for med recs and possible involvement of lexapro in patient presentation and recommended to Discontinue Lexapro as QTC was 584 and this medication may increase risk of prolonged QTC interval and started Zoloft 50mg daily for Depression -continue Zoloft -EEG no signs of seizure activity -Vitamin B12, Folate, TSH normal -RPR levels pending -patient appears to be speaking with normal affect and answering questions appropriately and mental status is baseline (2) Fall: as above Obstructive sleep apnea -patient is non adherent to CPAP at home -may have difficulty with wearing CPAP for now given the facial bruising (3) Hypothermia: initial presentation concerning for hypothermia -blood cultures negative to date -Zosyn stopped and transitioned to Augmentin for possible sinusitis on 10/03/18 -continue Augmentin for now, white blood cell count noted to be elevated, test for C difficile is negative vomiting (non-intractable) anti-emetics as needed (4) T2DM (type 2 diabetes mellitus): -Hba1c 7.2 -pharmacy for glycemic management (5) Depression: management as above (6) CKD stage 4 due to type 2 diabetes mellitus: -baseline Cr 2.2-2.4 -monitor GFR (7) Atrial fibrillation: -currently rate and rhythm controlled with coreg, pacemaker -continue coumadin, trend INR (8) Congestive heart failure: -Last Echocardiogram 12/2017 EF 50-55% LVH, mild aortic valve stenosis, mild MR, small apical septal/inferior wall motion abn possibly consistent with venricular pacemaker -on regimen of coreg, Lasix 80mg bid, aldactone 12.5mg daily - inpatient Lasix had been reduced to prevent hypotension, dehydration. - reducing Lasix to 40 mg daily for now and observe volume status -continue Aldactone (9) Hypertension: -blood pressure controlled on amlodipine, lasix, aldactone, coreg (10) Dyslipidemia: -continue atorvastatin (11) History of pacemaker: -pacemaker functioning -transfered off telemetry on 10/03/18 (12) DVT prophylaxis: DVT px as coumadin Disposition: Patient has been denied insurance authorization for coverage for inpatient physical rehabilitation at [facility]; patient's family planning to appeal and may consider private pay in the interim, disposition is pending awaiting their decisions as patient so far has been medically stable Subjective patient appears to be speaking with normal affect and answering questions appropriately and mental status is baseline denies headache, dizziness, or focal neurological symptoms denies chest pain, dyspnea Earlier patient apparently could not make it to the bathroom and as per the family present that patient defecated on himself. They also report an episode of vomiting when seen by hospitalist, patient sitting up in chair and eating yogurt Physical Exam 2 Vital Signs (Past 24 Hours): Last Vital Signs Temp 36.7 C 10/04/18 07:30 Pulse 62 10/04/18 07:30 Resp 20 10/04/18 07:30 BP 130/68 10/04/18 07:30 Pulse Ox 95 10/04/18 07:30 Constitutional: WD/WN, vitals as above Eyes: PERRL, conjunctivae normal, anicteric sclerae Respiratory: normal respiratory effort, lungs clear to auscultation Cardiovascular: Rate/Rhythm: + bradycardic Gastrointestinal (Abdomen): normal bowel sounds, soft, nontender, no hepatosplenomegaly Musculoskeletal: Head/Neck/Chest: + head abnormal to inspection (bruises near the chin and face) Neurologic: PERRL, EOMI, accommodation nl, no face palsy, no dysarthria CN' s II-XI intact bilaterally Psychiatric: A+Ox3, euthymic affect _ (1) T2DM (type 2 diabetes mellitus) Chronic kidney disease stage: stage 4 (severe) Diabetes mellitus complication detail: with chronic kidney disease Diabetes mellitus complication status: with kidney complications Diabetes mellitus long line teamster insulin use: with long line teamster use Diabetes mellitus macular edema: Diabetic retinopathy severity: Laterality: Proliferative retinopathy type: Qualified Code(s): E11.22 - Type 2 diabetes mellitus with diabetic chronic kidney disease; N18.4 - Chronic kidney disease, stage 4 (severe); Z79.4 - termination clerk (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 of insulin (2) Congestive heart failure Heart failure chronicity: acute on chronic Heart failure type: unspecified Qualified Code(s): I50.9 - Heart failure, unspecified (3) Atrial fibrillation Atrial fibrillation type: chronic Qualified Code(s): I48.2 - Chronic atrial fibrillation (4) Depression Active/Remission status: Depression Type: unspecified Major depression episode severity: Major depression recurrence: Psychotic features: Trimester: Qualified Code(s): F32.9 - Major depressive disorder, single episode, unspecified (5) Hypothermia Encounter type: subsequent encounter Qualified Code(s): T68.XXXD - Hypothermia, subsequent encounter (6) Altered mental status Altered mental status type: transient alteration of awareness Coma depth: Coma timing: Qualified Code(s): R40.4 - Transient alteration of awareness (7) Hypertension Hypertension type: essential hypertension Qualified Code(s): I10 - Essential (primary) hypertension (8) Fall Encounter type: subsequent encounter Qualified Code(s): W19.XXXD - Unspecified fall, subsequent encounter
[2018-10-04] MEDS ORDERED: WARFARIN SOD 5 MG TAB PO SCH (16:00)
[2018-10-04] MEDS: ATORVASTATIN 20 MG TAB PO SCH (20:34)
[2018-10-05 06:41] LABS: Basophils # (auto) 0.01 K/uL (0-0.2); Basophils % (auto) 0.1 %; Eosinophils # (auto) 0.31 K/uL (0-0.5); Eosinophils % (auto) 4.2 %; Hematocrit (blood only) 34.1 % (42-52); Hemoglobin 10.9 g/dL (14.0-18.0); Immature Granulocytes # (auto) 0.14 K/uL (0.00-0.02); Immature Granulocytes % (auto) 1.9 %; Lymphocytes # (auto) 1.39 K/uL (1.2-3.4); Lymphocytes % (auto) 18.8 %; Mean Corpuscular Volume 96.1 fL (80-100); Mean Platelet Volume 10.5 fL (7.4-10.4); Monocytes # (auto) 0.66 K/uL (0.11-0.59); Monocytes % (auto) 8.9 %; Neutrophils # (auto) 4.89 K/uL (1.4-6.5); Neutrophils % (auto) 66.1 %; Platelet Count 135 K/uL (130-400); RDW Coefficient of Variation 18.6 % (11.5-14.5); RDW Standard Deviation 65.8 fL (36.4-46.3); Red Blood Count 3.55 M/uL (4.7-6.1)
[2018-10-05 06:54] LABS: Prothrombin Time 28.6 Seconds (9.0-12.0)
[2018-10-05 07:15] LABS: BUN Creatinine Ratio 21.9 (10-20); Creatinine Clr Calc Pharmacy 25.5 ml/min; Est GFR (African American) 22.8; Est GFR (Non-African American) 19.7; Potassium 3.8 mmol/L (3.5-5.1)
[2018-10-05] MEDS ORDERED: SODIUM CHLORIDE 0.9% 1000ML 1,000 ML IV SCH (07:30)
--- NOTE | 2018-10-05 07:56 | Pharmacy Report ---
Pharmacy Glycemic Short Note 2 - Date of Service October 05, 2018 - Glycemic Short BSG Results (Last 24 hours): 10/04/18 10/04/18 10/04/18 07:47 11:55 16:52 Glucose POC Glucose 129 H 158 H 188 H 10/04/18 10/05/18 20:14 06:21 Glucose 126 H POC Glucose 148 H Laboratory Tests 10/02/18 06:21 Estimat Average Glucose 160 Hemoglobin A1c 7.2 H OUTPATIENT ANTIDIABETIC REGIMEN: * Levemir 25 units BID * Lispro 19 units w/ breakfast + 18 units w/ lunch + 24 units w/ dinner; and correction factor of 25mg/dL/unit * Patient has been depressed and confused and has stopped using meds at times in the recent past * A1c = 7.2% ASSESSMENT: * Blood sugars at goal the past 48 hours, no changes needed. * Patient requiring/receiving 10 units BID of Lantus PLAN FOR INPATIENT GLYCEMIC CONTROL: * Basal insulin * Lantus SQ BID per scale: * 0 units if BSG less than 120 * 10 units if BSG 120-180 * 15 units if BSG above 180 * Bolus insulin * NovoLog per scale ACHS * Goal Range: Low 120 mg/dL - High 160 mg/dL * Correction Factor: 25 mg/dL/unit * Nutritional / Prandial insulin per carb ratio of 1 unit per 8 grams CHO consumed PLAN FOR DISCHARGE: * It appears he will require a substantial reduction in his outpt insulin doses based upon the current trend. Based upon the last 24 hrs would estimate his basal needs to be 10-15 units BID rather than 25 BID. His prandial insulin needs may only be 5-7 units per meal.
[2018-10-05] MEDS ORDERED: AMOXICILLIN/CLAVULANATE 500 MG TAB PO SCH (08:15)
[2018-10-05] MEDS: INSULIN ASPART 100 UNITS/ML 3 ML PEN SC SCH ×2 (08:48→12:32)
[2018-10-05] MEDS: CARVEDILOL 12.5 MG TAB PO SCH (08:50)
[2018-10-05] MEDS: ASPIRIN 81 MG ECTAB PO SCH (08:51)
[2018-10-05] MEDS: FOLIC ACID 1 MG TAB PO SCH (08:51)
[2018-10-05] MEDS: CALCITRIOL 0.25 MCG CAPSULE PO SCH (08:53)
[2018-10-05] MEDS: AMLODIPINE BESYLATE 5 MG TAB PO SCH (08:53)
[2018-10-05] MEDS: CHOLECALCIFEROL 1,000 UNITS TAB PO SCH (08:54)
[2018-10-05] MEDS: SERTRALINE HCL 50 MG TABLET PO SCH (08:54)
[2018-10-05] MEDS: INSULIN GLARGINE SOLOSTAR 100 UNITS/ML 3 ML PEN SC SCH (08:55)
--- NOTE | 2018-10-05 12:58 | Hospitalist Progress Note ---
Date of Service October 05, 2018 Assessment & Plan (1) Altered mental status: This is an 83-year-old male with significant past medical history of chronic atrial fibrillation on warfarin, T2 DM, HTN, HLD, MARLON not tolerant to CPAP, CKD stage IV, sinus node dysfunction status post permanent pacemaker, history of congestive heart failure, pulmonary hamartoma who presents to [facility] secondary to being found on floor by and son. Patient's family member also reported that in recent past the patient has been crying and started on antidepressants Fall -presumably patient fell and found to have facial bruising -unclear as to the direct cause of the initial falling at home -CT head imaging has been done and no acute process -PT/OT evaluations were completed in the hospital stay Medical nonadherence at home Depression -Psychiatry consulted on 10/01/18 for med recs and possible involvement of lexapro in patient presentation and recommended to Discontinue Lexapro as QTC was 584 and this medication may increase risk of prolonged QTC interval and started Zoloft 50mg daily for Depression -continue Zoloft -EEG no signs of seizure activity -Vitamin B12, Folate, TSH normal -RPR non-reactive -patient appears to be speaking with normal affect and answering questions appropriately and mental status is baseline -10/10/2018 11:20 AM Provider Hilario Yoon MD Department Family Practice [facility] (patient would benefit with Psychiatry and a therapist appointments and these referrals can be made by primary care doctor) (2) Fall: as above Obstructive sleep apnea -patient is non adherent to CPAP at home -may have difficulty with wearing CPAP for now given the facial bruising (3) Hypothermia: initial presentation concerning for hypothermia -blood cultures negative to date -Zosyn stopped and transitioned to Augmentin for possible sinusitis on 10/03/18 -can discontinue Augmentin by 10/05/18 as this would be day 5 of total antibiotics and WBC normalized vomiting (non-intractable) -resolved (4) T2DM (type 2 diabetes mellitus): -Hba1c 7.2 -pharmacy for glycemic management (5) Depression: management as above (6) CKD stage 4 due to type 2 diabetes mellitus: -baseline Cr 2.2-2.4 -monitor GFR -10/05/18 diuretics were held and IV fluids given as creatinine 2.85, expect that creatinine will decline after IV fluids and then resuming Lasix as reduced 40 mg daily with aldactone daily -patient should have renal function and electrolytes rechecked on follow up by primary care doctor (7) Atrial fibrillation: -currently rate and rhythm controlled with coreg, pacemaker -on coumadin, trend INR Patient should take coumadin 5 mg daily for now until followup with: 10/08/2018 6:15 PM Provider [facility] Department Pharmacy, [facility] (for INR monitoring) (8) Congestive heart failure: -Last Echocardiogram 12/2017 EF 50-55% LVH, mild aortic valve stenosis, mild MR, small apical septal/inferior wall motion abn possibly consistent with venricular pacemaker -on regimen of coreg, Lasix 80mg bid, aldactone 12.5mg daily at home - inpatient Lasix had been reduced to prevent hypotension, dehydration. -Lasix and aldactone held on 10/05/18 and IV fluids given for mild acute kidney injury -Because of acute kidney injury and unclear whether patient was taking home dosed medications appropriately, patient should take reduced doses of Lasix ( Furosemide) as 40 mg once day daily until follow up with primary care doctor (9) Hypertension: -blood pressure controlled on amlodipine, coreg (10) Dyslipidemia: -continue atorvastatin (11) History of pacemaker: -pacemaker functioning -transferred off telemetry on 10/03/18 (12) DVT prophylaxis: DVT px as coumadin Discharge Instructions Patient to be discharged to [facility] (physical rehabilitation bud) Because of acute kidney injury and unclear whether patient was taking home dosed medications appropriately, patient should take reduced doses of Lasix ( Furosemide) as 40 mg once day daily until follow up with primary care doctor Patient will be taking sertraline 50 mg daily (this replaces original home medication escitalopram) Patient should take coumadin 5 mg daily for now until followup with: 10/08/2018 6:15 PM Provider [facility] Department Pharmacy, [facility] (for INR monitoring) 10/10/2018 11:20 AM Provider Hilario Yoon MD Department Family Practice [facility] (patient would benefit with Psychiatry and a therapist appointments and these referrals can be made by primary care doctor) (patient should have renal function and electrolytes rechecked on follow up) 10/17/2018 1:00 PM Provider Zack Rhoades Jr., Department Cardiology, [facility] Discharge diagnosis Altered Mental Status, Facial bruising from fall, Depression, anticoagulated with coumadin, atrial firbillation, chronic kidney disease stage IV, acute kidney injury, obstructive sleep apnea on CPAP, Type 2 diabetes mellitus on senior care use of insulin without complications Subjective patient seen and examined at bedside with his next to him. both corroborate that patient is feeling well patient appears to be speaking with normal affect and answering questions appropriately and mental status is baseline denies headache, dizziness, or focal neurological symptoms denies chest pain, dyspnea Patient has IV fluids for mild acute kidney injury Hospitalists explained discharge instructions and follow ups for when patient goes to physical rehabilitation facility and afterwards and expect renal function to improve with reduce Lasix dosing Physical Exam 2 Vital Signs (Past 24 Hours): Last Vital Signs Temp 36.8 C 10/05/18 12:27 Pulse 66 10/05/18 12:27 Resp 17 10/05/18 12:27 BP 116/63 10/05/18 12:27 Pulse Ox 94 10/05/18 12:27 Constitutional: WD/WN, vitals as above Eyes: PERRL, conjunctivae normal, anicteric sclerae Respiratory: normal respiratory effort, lungs clear to auscultation Cardiovascular: Rate/Rhythm: + bradycardic Gastrointestinal (Abdomen): normal bowel sounds, soft, nontender, no hepatosplenomegaly Musculoskeletal: Head/Neck/Chest: + head abnormal to inspection (bruises near the chin and face) Neurologic: PERRL, EOMI, accommodation nl, no face palsy, no dysarthria CN' s II-XI intact bilaterally Psychiatric: A+Ox3, euthymic affect _ (1) T2DM (type 2 diabetes mellitus) Chronic kidney disease stage: stage 4 (severe) Diabetes mellitus complication detail: with chronic kidney disease Diabetes mellitus complication status: with kidney complications 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 insulin use: with senior care use Diabetes mellitus macular edema: Diabetic retinopathy severity: Laterality: Proliferative retinopathy type: Qualified Code(s): E11.22 - Type 2 diabetes mellitus with diabetic chronic kidney disease; N18.4 - Chronic kidney disease, stage 4 (severe); Z79.4 - FCI (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 of insulin (2) Congestive heart failure Heart failure chronicity: acute on chronic Heart failure type: unspecified Qualified Code(s): I50.9 - Heart failure, unspecified (3) Atrial fibrillation Atrial fibrillation type: chronic Qualified Code(s): I48.2 - Chronic atrial fibrillation (4) Depression Active/Remission status: Depression Type: unspecified Major depression episode severity: Major depression recurrence: Psychotic features: Trimester: Qualified Code(s): F32.9 - Major depressive disorder, single episode, unspecified (5) Hypothermia Encounter type: subsequent encounter Qualified Code(s): T68.XXXD - Hypothermia, subsequent encounter (6) Altered mental status Altered mental status type: transient alteration of awareness Coma depth: Coma timing: Qualified Code(s): R40.4 - Transient alteration of awareness (7) Hypertension Hypertension type: essential hypertension Qualified Code(s): I10 - Essential (primary) hypertension (8) Fall Encounter type: subsequent encounter Qualified Code(s): W19.XXXD - Unspecified fall, subsequent encounter
--- NOTE | 2018-10-05 13:13 | Discharge Summary ---
Date of Service October 05, 2018 Admission HPI Per Admitting Provider This is an 83-year-old male with significant past medical history of chronic atrial fibrillation on warfarin, T2 DM, HTN, HLD, MARLON not tolerant to CPAP, CKD stage IV, sinus node dysfunction status post permanent pacemaker, history of congestive heart failure, pulmonary hamartoma who presents to [facility] secondary to being found on floor at 4 AM by and son. Patient was last known well approximately 12 AM, lying in bed. and son at bedside. They state for approximately the past 2 months has noticed mental decline in patient. Also for the last 2 weeks patient has been suffering from significant depression. Approximately 10 days ago patient was seen by PCP secondary to feeling down and depressed, initiated on Lexapro 10 mg daily and subsequently increased to 20 mg daily approximately 5 days later. Denies S.I. or thought of harming others. No traumatic incident, unknown what brought on depression. "Just sad all the time." The son who does not see father as often has noticed significant mental decline over the past 2 months ( since last seen in football season), increasing forgetfulness, has not been taking pills appropriately for the past 6 weeks. Patient has been emotionally labile, increasingly agitated with symptoms worse in the evening. Frequent outbursts of weeping. Of note patient did suffer from episode of bronchitis while in [facility] over [place], but has since resolved per . Last night prior to going to sleep patient was in bed, very agitated, flailing arms, was extremely scared. When found on floor in prone position at 4 AM he had numerous areas of ecchymoses and skin tears, even removed a slat from underneath bed. Patient unfortunately does not recall event. Son has been in town since 09/28 secondary to patient being in ER for worsening depressive episode. Patient has been compliant with medications for the past 2 days secondary to son, including his insulin regimen. Per family appetite and p.o. intake has slightly been decreased over the past 4 weeks. There is been no reported weight loss. Patient is currently awake and alert and oriented and complains of right wrist pain, R lateral chest wall pain, but denies fever, chills, sweats, lightheadedness, dizziness, chest pain, shortness of breath, hemoptysis, nausea, vomiting, hematuria. He does report to increased frequency with urination and difficulty holding stool, but no jonathan diarrhea. Admission Exam Per Admitting Provider Gen: Morbidly obese, M, lying in bed, easily arousable, sleeping, but arouses to verbal/tactile stimulation, NAD, lying in bed, pleasant, conversing easily Head: Normocephalic, +facial ecchymosis b/l periorbital, buccal and hypertrophy of upper/lower lip given trauma Eyes: Sclera normal, no conjunctival injection, PERRLA, EOMI ENT: Gross hearing intact, normal pharynx, mucous membranes moist Neck: supple, no adenopathy, No JVD, no bruit, no thyromegaly, Resp: Clear to auscultation b/l, no wheeze, rales, rhonchi. 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 Extremities: b/l venous stasis changes with anterior/pretibal skin tear, no jonathan edema bilaterally, RUE dressing intact with skin tears underneath Skin: warm, moist, no rash, negative turgor, cap refill < 2sec Neuro: Alert and oriented x 3, speech normal, good mood/affect, cran nerve 2-12 intact grossly : deferred Principal Diagnosis Altered Mental Status, Facial bruising from fall, Depression, anticoagulated with coumadin, atrial firbillation, chronic kidney disease stage IV, acute kidney injury, obstructive sleep apnea on CPAP, Type 2 diabetes mellitus on custodial use of insulin without complications Discharge Exam Constitutional WD/WN, vitals as above Eyes PERRL, conjunctivae normal, anicteric sclerae Respiratory normal respiratory effort, lungs clear to auscultation Cardiovascular Rate/Rhythm: + bradycardic Gastrointestinal (Abdomen) normal bowel sounds, soft, nontender, no hepatosplenomegaly Musculoskeletal Head/Neck/Chest: + head abnormal to inspection (bruises near the chin and face) Neurologic PERRL, EOMI, accommodation nl, no face palsy, no dysarthria CN's II-XI intact bilaterally Psychiatric A+Ox3, euthymic affect Discharge Data Allergies Allergy/AdvReac Type Severity Reaction Status Date / Time Beta-Blockers Allergy Unknown abd cramps Verified 10/01/18 06:41 (Beta-Adrenergic Bloc zolpidem AdvReac Intermediate confusion Unverified 10/01/18 06:41 mometasone furoate AdvReac Unknown DISORIENTED Unverified 10/01/18 06:41 Consultations 10/01/18 08:53 ED Decision to Admit Stat 10/01/18 11:45 Consult Case Management - Discharge Planning Routine Consult Case Management - Discharge Planning Routine Consult Psychiatry Routine 10/01/18 15:45 Consult Neurology Routine Ordered Studies 10/01/18 06:09 CT cervical spine wo con Stat CT facial bones wo con Stat CT head/brain wo con Stat 10/02/18 08:00 CT head/brain wo con Routine 10/02/18 14:36 US carotid doppler BI Routine Hospital Course (1) Altered mental status: This is an 83-year-old male with significant past medical history of chronic atrial fibrillation on warfarin, T2 DM, HTN, HLD, MARLON not tolerant to CPAP, CKD stage IV, sinus node dysfunction status post permanent pacemaker, history of congestive heart failure, pulmonary hamartoma who presents to [facility] secondary to being found on floor by and son. Patient's family member also reported that in recent past the patient has been crying and started on antidepressants Fall -presumably patient fell and found to have facial bruising -unclear as to the direct cause of the initial falling at home -CT head imaging has been done and no acute process -PT/OT evaluations were completed in the hospital stay Medical nonadherence at home Depression -Psychiatry consulted on 10/01/18 for med recs and possible involvement of lexapro in patient presentation and recommended to Discontinue Lexapro as QTC was 584 and this medication may increase risk of prolonged QTC interval and started Zoloft 50mg daily for Depression -continue Zoloft -EEG no signs of seizure activity -Vitamin B12, Folate, TSH normal -RPR non-reactive -patient appears to be speaking with normal affect and answering questions appropriately and mental status is baseline -10/10/2018 11:20 AM Provider Hilario Yoon MD Department Family Practice [facility] (patient would benefit with Psychiatry and a therapist appointments and these referrals can be made by primary care doctor) (2) Fall: as above Obstructive sleep apnea -patient is non adherent to CPAP at home -may have difficulty with wearing CPAP for now given the facial bruising (3) Hypothermia: initial presentation concerning for hypothermia -blood cultures negative to date -Zosyn stopped and transitioned to Augmentin for possible sinusitis on 10/03/18 -can discontinue Augmentin by 10/05/18 as this would be day 5 of total antibiotics and WBC normalized vomiting (non-intractable) -resolved (4) T2DM (type 2 diabetes mellitus): -Hba1c 7.2 -pharmacy for glycemic management (5) Depression: management as above (6) CKD stage 4 due to type 2 diabetes mellitus: -baseline Cr 2.2-2.4 -monitor GFR -10/05/18 diuretics were held and IV fluids given as creatinine 2.85, expect that creatinine will decline after IV fluids and then resuming Lasix as reduced 40 mg daily with aldactone daily -patient should have renal function and electrolytes rechecked on follow up by primary care doctor (7) Atrial fibrillation: -currently rate and rhythm controlled with coreg, pacemaker -on coumadin, trend INR Patient should take coumadin 5 mg daily for now until followup with: 10/08/2018 6:15 PM Provider [facility] Department Pharmacy, [facility] (for INR monitoring) (8) Congestive heart failure: -Last Echocardiogram 12/2017 EF 50-55% LVH, mild aortic valve stenosis, mild MR, small apical septal/inferior wall motion abn possibly consistent with venricular pacemaker -on regimen of coreg, Lasix 80mg bid, aldactone 12.5mg daily at home - inpatient Lasix had been reduced to prevent hypotension, dehydration. -Lasix and aldactone held on 10/05/18 and IV fluids given for mild acute kidney injury -Because of acute kidney injury and unclear whether patient was taking home dosed medications appropriately, patient should take reduced doses of Lasix ( Furosemide) as 40 mg once day daily until follow up with primary care doctor (9) Hypertension: -blood pressure controlled on amlodipine, coreg (10) Dyslipidemia: -continue atorvastatin (11) History of pacemaker: -pacemaker functioning -transferred off telemetry on 10/03/18 (12) DVT prophylaxis: DVT px as coumadin Discharge Instructions Patient to be discharged to [facility] (physical rehabilitation serafina) Because of acute kidney injury and unclear whether patient was taking home dosed medications appropriately, patient should take reduced doses of Lasix ( Furosemide) as 40 mg once day daily until follow up with primary care doctor Patient will be taking sertraline 50 mg daily (this replaces original home medication escitalopram) Patient should take coumadin 5 mg daily for now until followup with: 10/08/2018 6:15 PM Provider [facility] Department Pharmacy, [facility] (for INR monitoring) 10/10/2018 11:20 AM Provider Hilario Yoon MD Department Family Practice [facility] (patient would benefit with Psychiatry and a therapist appointments and these referrals can be made by primary care doctor) (patient should have renal function and electrolytes rechecked on follow up) 10/17/2018 1:00 PM Provider Zack Rhoades Jr., Department Cardiology, [facility] Discharge diagnosis Altered Mental Status, Facial bruising from fall, Depression, anticoagulated with coumadin, atrial firbillation, chronic kidney disease stage IV, acute kidney injury, obstructive sleep apnea on CPAP, Type 2 diabetes mellitus on custodial use of insulin without complications Total Time Total Time Spent Total Time Spent (In Minutes): 40 minutes Total Time Includes: Examination of the Patient, Discharge Planning and Medication Reconciliation Discharge Plan Discharge Items Patient Disposition: Transfer Inpatient Rehab Fac Reason For Visit: ALTERED MENTAL STATUS Discharge Diagnosis: Altered Mental Status, Facial bruising from fall, Depression, anticoagulated with coumadin, atrial firbillation, chronic kidney disease stage IV, acute kidney injury, obstructive sleep apnea on CPAP, Type 2 diabetes mellitus on custodial use of insulin without complications Condition: Good Discharge Goals: Improve function Activity: Resume your previous activity Non-emergency contact: Primary Care Provider Call non-emergency contact if: you have any medication questions Follow-up/Referrals: Hilario Yoon MD [Primary Care Provider] - Diet: Carb Consistent or DM2 Addtl Provider Instructions: Discharge Instructions Patient to be discharged to [facility] (physical rehabilitation serafina) Because of acute kidney injury and unclear whether patient was taking home dosed medications appropriately, patient should take reduced doses of Lasix ( Furosemide) as 40 mg once day daily until follow up with primary care doctor Patient will be taking sertraline 50 mg daily (this replaces original home medication escitalopram) Patient should take coumadin 5 mg daily for now until followup with: 10/08/2018 6:15 PM Provider [facility] Department Pharmacy, [facility] (for INR monitoring) 10/10/2018 11:20 AM Provider Hilario Yoon MD Department Family Practice [facility] (patient would benefit with Psychiatry and a therapist appointments and these referrals can be made by primary care doctor) (patient should have renal function and electrolytes rechecked on follow up) 10/17/2018 1:00 PM Provider Zack Rhoades Jr., DO Department Cardiology, [facility] Prescriptions: New furosemide 40 mg Tablet 40 mg PO QAM 30 Days Qty: 30 RF: 0 warfarin [Coumadin] 5 mg Tablet 5 mg PO DAILY@1600 30 Days Qty: 30 RF: 0 sertraline 50 mg Tablet 50 mg PO QAM 30 Days Qty: 30 RF: 0 Continue carvedilol 12.5 mg tablet 12.5 mg PO BID RF: 0 amlodipine 5 mg tablet 5 mg PO DAILY RF: 0 aspirin [Aspir-81] 81 mg Tablet,Delayed Release (Dr/Ec) 81 mg PO DAILY RF: 0 spironolactone 25 mg tablet 12.5 mg PO DAILY RF: 0 folic acid 1 mg tablet 5 mg PO DAILY RF: 0 cholecalciferol (vitamin D3) [Vitamin D3] 1,000 unit Capsule 1,000 unit PO DAILY RF: 0 insulin lispro [Humalog KwikPen Insulin] 100 unit/mL insulin pen subcut UD RF: 0 insulin detemir U-100 [Levemir FlexTouch U-100 Insuln] 100 unit/mL (3 mL) insulin pen 25 units subcut AMHS RF: 0 atorvastatin 20 mg Tablet 20 mg PO HS RF: 0 calcitriol 0.5 mcg Capsule 0.5 mcg PO MOWEFR RF: 0 Discontinued furosemide 40 mg tablet 80 mg PO BID RF: 0 warfarin 10 mg tablet 10 mg PO DAILY RF: 0 escitalopram oxalate 20 mg Tablet 20 mg PO DAILY RF: 0 doxycycline hyclate 100 mg tablet 100 mg PO BID 10 Days Qty: 20 RF: 0 Stand-Alone Forms: [facility] Discharge Orders: Discharge Order (Routine); Ordered 10/05/18 Ordered By: Nba Collazo Skilled Items Patient informed of condition?: Yes DNR: No Discharge Level of Care: Acute rehab Communicable Disease: No Discharge Prognosis: Stable Admission Data Admit Date/Time: 10/01/18 10:25 Attending Provider: Nba Collazo Admaugusto Provider: Ryan Zavala Primary Care Provider: Hilario Yoon Other Providers: Jennifer Ibarra ; Don Rand ; Jennifer Leon ; Melina Graf ; Ayden Ferguson ; Jacklyn Phillips ; Angelo Santos ; Mu Hewitt ; Meri Navarro ; Amira Shah ; To Garcia ; Laci Newberry. ; Lizy Rhodes ; Zack Purvis ; Oliva Kinney ; Jeannine Mejia ; Matthias Ojeda ; Margie Cardona ; Williams Jenkins I ; Claudia Eckert ; Marcelina Styles. ; Maria D Norris. ; Kj Bundy ; Ryan Zavala Service: Medical Other Interventions: Discharge Summary Assessment (RN) Last Done: 10/05/18 12:27
[2018-10-05] MEDS ORDERED: WARFARIN SOD 5 MG TAB PO SCH (16:00)
--- NOTE | 2018-10-08 08:33 | Coding Query ---
CODING QUERY To promote full compliance with coding requirements relating to patient care, provider participation is requested in all cases of implementation lead uncertainty. Please assist us with the question(s) below: Coding Question(s): Patient admitted with altered mental status, facial bruising from fall, depression, atrial fibrillation, ckd 4 , JEREMY and MARLON , on CPAP (non-compliant at home). Please document, if known or suspected, the etiology of the patient' s altered mental status. Thank you. Anup Brian, [facility] Physician's Response(s): do not know what was the initial trigger to altered mental status. it resolved shortly in the hospital stay Principal Diagnosis: "that condition established after study, to be chiefly responsible for occasioning the admission of the patient to the hospital for care." Co-Existing Principal Diagnosis: "when two or more diagnoses equally meet the criteria for principal diagnosis as determined by the circumstances of admission , diagnostic work up, and/or therapy provided, and the Alphabetic Index, Tabular List, or another coding guideline does not provide sequencing direction , any one of the diagnoses may be sequenced first." "When the physician has documented what appears to be a current diagnosis in the body of the record, but has not included the diagnosis in the final diagnostic statement, the physician should be asked whether the diagnosis should be added." ([facility] 2 QTR90. p3-4) RASHAWN
== END 2018-10-05 14:20 | DRG 948 ==
LOC: ED 05:55 → SUATTDRO 10:25 → 2E 10:25 → 4W 10-03 14:27

== ENCOUNTER 2018-11-17 18:47 | Inpatient (IN) ==
[2018-11-17] MEDS ORDERED: ASPIRIN CHEW 324 MG PO STA (19:06)
[2018-11-17] MEDS ORDERED: ASPIRIN 81 MG CHEW ONE (19:24)
[2018-11-17 19:32] LABS: Basophils # (auto) 0.01 K/uL (0-0.2); Basophils % (auto) 0.1 %; Eosinophils # (auto) 0.28 K/uL (0-0.5); Eosinophils % (auto) 2.9 %; Hematocrit (blood only) 32.5 % (42-52); Hemoglobin 10.6 g/dL (14.0-18.0); Immature Granulocytes # (auto) 0.25 K/uL (0.00-0.02); Immature Granulocytes % (auto) 2.6 %; Lymphocytes # (auto) 1.28 K/uL (1.2-3.4); Lymphocytes % (auto) 13.4 %; Mean Corpuscular Hgb Conc 32.6 g/dL (32-36); Mean Corpuscular Volume 96.7 fL (80-100); Monocytes # (auto) 0.67 K/uL (0.11-0.59); Neutrophils # (auto) 7.07 K/uL (1.4-6.5); Platelet Count 172 K/uL (130-400); RDW Coefficient of Variation 17.4 % (11.5-14.5); RDW Standard Deviation 61.9 fL (36.4-46.3); Red Blood Count 3.36 M/uL (4.7-6.1); White Blood Count 9.56 K/uL (4.8-10.8)
[2018-11-17 19:34] LABS: Base Excess VBG -1.3 mEq/L; Oxygen Saturation VBG 67.7 %; pH VBG 7.38 (7.36-7.41)
[2018-11-17 19:49] LABS: BUN Creatinine Ratio 24.5 (10-20); Blood Urea Nitrogen 61 mg/dl (7-18); Calcium 8.9 mg/dl (8.5-10.1); Carbon Dioxide 26 mmol/L (21-32); Chloride 98 mmol/L (98-107); Creatinine Clr Calc Pharmacy 29.3 ml/min; Est GFR (Non-African American) 23.3; Glucose 317 mg/dl (70-99); Potassium 5.6 mmol/L (3.5-5.1); Sodium 128 mmol/L (136-145)
[2018-11-17 19:58] LABS: Influenza A virus by PCR Neg for Influ A (Neg); Influenza B virus by PCR Neg for Influ B (Neg)
[2018-11-17 19:59] LABS: Beta-Hydroxybutyrate 1.59 mg/dl (0.2-2.81); NT Pro B Type Natriuretic Pept 6158 pg/ml (0-1800); Troponin I < 0.015 ng/ml (0-0.045)
[2018-11-17] MEDS ORDERED: INSULIN HUMAN REGULAR PER UNIT 5 UNITS in SYRINGE 9.9 ML IV STA (20:01)
[2018-11-17] MEDS ORDERED: SODIUM POLYSTYRENE SULFONATE 15G/60ML SUSP PO STA (20:01)
[2018-11-17] MEDS ORDERED: FUROSEMIDE 40 MG in SYRINGE 0 ML IV STA (20:01)
[2018-11-17] MEDS ORDERED: CALCIUM GLUCONATE 10% 1,000 MG in SODIUM CHLORIDE 0.9% 50 ML IV STA (20:01)
[2018-11-17 20:14] LABS: Appearance Urine Clear (Clear); Bacteria Urine Automated Negative (Negative); Bilirubin Urine Negative (Negative); Blood Urine Negative (Negative); Color Urine Yellow; Glucose Urine UA 1+ (Negative); Ketones Urine Negative (Negative); Leukocyte Esterase Urine Trace (Negative); Nitrite Urine Negative (Negative); Protein Urine 1+ (Negative); RBC Urine Automated 0-4 /hpf (0-4); Specific Gravity Urine 1.015 (1.000-1.030); Urobilinogen Urine Negative (Negative)
[2018-11-17] MEDS ORDERED: CALCIUM GLUCONATE 10% 10 ML VIAL IV ONE (20:25)
[2018-11-17] MEDS ORDERED: FUROSEMIDE 40 MG/4 ML VIAL IV ONE (20:25)
[2018-11-17] MEDS ORDERED: NovoLIN-R INSULIN PER UNIT CHARGE ONE (20:27)
--- NOTE | 2018-11-17 20:34 | XRay Report ---
XR chest 1V portable HISTORY: Atypical Chest Pain COMPARISON: Chest 10/31/2018. FINDINGS: No pneumothorax. Mild interstitial pulmonary edema and small bilateral pleural effusions pe rsist. The heart remains enlarged. Left-sided dual-chamber pacemaker. Dense left midlung zone nodule remains unchanged. This likely represents a calcified granuloma. No new focal lung consolidations. IMPRESSION: No significant change in the mild interstitial pulmonary edema and small bilateral pleural effusions. Electronically signed by: Rob Fleming M.D. 11/17/2018 8:32 PM
--- NOTE | 2018-11-17 21:10 | Emergency Department Note ---
Entered by Dillon Darden acting as a scribe for History of Present Illness General Chief complaint: Hyperglycemia Stated complaint: BLOOD SUGAR IS 450 Time Seen by Provider: 11/17/18 18:59 Source: patient Limitations: no limitations History of Present Illness Onset (ago): hour(s) (this afternoon) Location: chest Pain Consistency: + constant Maximum Pain Intensity: 0 Quality: + constant Associated symptoms: + denies other symptoms (diarrhea, blood in urine and stool, abdominal pain) and + shortness of breath; no chest pain and no nausea/vomiting The patient is a 83 year old male who presents to the Emergency Room with complaints of constant SOB and hyperglycemia starting this afternoon. The patient's states the patient had a glucose level of 310 at breakfast and 390 at lunch. She states the patient's last sugar was 450. She states the patient has congestive heart failure and his case checker is Dr. Rhoades. She notes the patient is type 2 diabetic. The patient notes he has lost his appetite. The patient denies nausea, vomiting, diarrhea, blood in urine or stool, chest pain, and abdominal pain. The states the patient was in the ED in September and the doctors cut back his insulin intake severely. She notes the patient was then [facility] then [facility]. She notes the patient was taken off blood thinners temporarily. The patient notes he takes 10 insulin in the morning and 10 at night. He notes his PCP is Dr. Yoon at [facility]. Home Medications Home Medications Medication Instructions Recorded Confirmed Type amlodipine 5 mg PO QAM 08/20/18 11/17/18 History aspirin [Aspir-81] 81 mg PO QAM 08/20/18 11/17/18 History carvedilol 12.5 mg PO AMHS 08/20/18 11/17/18 History cholecalciferol (vitamin D3) 1,000 unit PO QAM 08/20/18 11/17/18 History [Vitamin D3] folic acid 5 tab PO QAM 08/20/18 11/17/18 History spironolactone 12.5 mg PO QAM 08/20/18 11/17/18 History atorvastatin 20 mg PO HS 10/01/18 11/17/18 History calcitriol 0.5 mcg PO MOWEFR 10/01/18 11/17/18 History acetaminophen [Tylenol] 325 mg PO Q6H PRN 10/31/18 11/17/18 History polyethylene glycol 3350 [Miralax] 17 g PO QAM 10/31/18 11/17/18 History furosemide 40 mg PO QAM 11/17/18 11/17/18 History insulin detemir U-100 [Levemir 1 dose SUBCUT DIRECTED 11/17/18 11/17/18 History FlexTouch U-100 Insuln] sertraline 50 mg PO QAM 11/17/18 11/17/18 History Allergies Allergy/AdvReac Type Severity Reaction Status Date / Time Beta-Blockers Allergy Unknown abd cramps Verified 11/17/18 20:17 (Beta-Adrenergic Bloc zolpidem AdvReac Intermediate confusion Unverified 11/17/18 20:17 mometasone furoate AdvReac Unknown DISORIENTED Unverified 11/17/18 20:17 Past Med/Surg History Medical History T2DM (type 2 diabetes mellitus) CKD stage 4 due to type 2 diabetes mellitus Atrial fibrillation Hypertension Dyslipidemia Obstructive sleep apnea Ischemic cardiomyopathy Coronary artery disease Congestive heart failure (Acute) Surgical History History of excision of pilonidal cyst History of pacemaker History of appendectomy History of tonsillectomy and adenoidectomy History of cataract surgery Family History Father , at 86 CVA (cerebral vascular accident) Mother , age 90 Unknown family medical history Other Family history non-contributory Social History Preferred Language: Lebanese Beliefs That Will Affect Care: None marital status: Current Living Situation: Spouse current occupational status: retired Feels Safe at Home: Yes Smoking Status: Former smoker Hx Alcohol Use: Yes Hx Substance Use: No Review of Systems See HPI for pertinent positives & negatives. and A total of 10 systems reviewed and were otherwise negative Physical Exam Vital Signs Vital Signs - 24 hr 11/17/18 18:50 11/17/18 19:06 11/17/18 19:15 Temperature 36.4 C L Temperature Source Oral Sepsis Recent Fever Within 48 Hours No Sepsis New/Unexplained Change in Mental Status No Sepsis Action Taken by Nursing No Action Required Pulse Rate 97 H 87 Pulse Rate [Apical] Pulse Rate from SpO2 Sensor 89 Pulse Rhythm [Apical] Pulse Strength [Apical] Respiratory Rate 20 24 Respiratory Effort / Characteristics Non-Labored Spontaneous Respiratory Depth Normal Respiratory Pattern Regular Blood Pressure 113/67 Blood Pressure [Left Arm] Blood Pressure Mean 82 Blood Pressure Mean [Left Arm] Blood Pressure Position [Left Arm] Pulse Oximetry 84 L 96 97 Oxygen Delivery Method Room Air Nasal Cannula Oxygen Flow Rate 2 11/17/18 20:00 11/17/18 20:05 11/17/18 20:47 Temperature Temperature Source Sepsis Recent Fever Within 48 Hours Sepsis New/Unexplained Change in Mental Status Sepsis Action Taken by Nursing Pulse Rate 65 63 Pulse Rate [Apical] 60 Pulse Rate from SpO2 Sensor 65 62 Pulse Rhythm [Apical] Regular Pulse Strength [Apical] Normal Respiratory Rate 19 26 H 24 Respiratory Effort / Characteristics Non-Labored Spontaneous Respiratory Depth Normal Respiratory Pattern Regular Blood Pressure 140/56 L Blood Pressure [Left Arm] 140/56 L Blood Pressure Mean 84 Blood Pressure Mean [Left Arm] 84 Blood Pressure Position [Left Arm] Sitting Pulse Oximetry 98 98 96 Oxygen Delivery Method Nasal Cannula Oxygen Flow Rate 2 GENERAL: He is oriented to person, place, and time. He appears well-developed and well-nourished. He does not appear distressed. HENT: Exam performed. - Head: Normocephalic and atraumatic. - Right Ear: External ear normal. No mastoid tenderness. - Left Ear: External ear normal. No mastoid tenderness. - Mouth/Throat: The oropharynx is clear and moist. No trismus in the jaw. No dental abscesses or uvula swelling. No oropharyngeal exudate or tonsillar abscesses. EYES: Conjunctivae and EOM are normal. Pupils are equal, round, and reactive to light. Right eye exhibits no discharge. Left eye exhibits no discharge. No scleral icterus. NECK: Normal range of motion. Neck supple. No JVD present. No spinous process tenderness present. No carotid bruit present. No rigidity. No tracheal deviation and normal range of motion present. No Brudzinski's sign and no Kernig's sign noted. CV: Normal rate, regular rhythm, normal heart sounds and intact distal pulses. There is no peripheral edema. Palpable radial pulses bue. Inspiratory rales bilaterally. PULM/CHEST: Effort normal and breath sounds normal. No respiratory distress. No stridor. He has no wheezes. He has no rales. - Chest Wall: He exhibits no tenderness. ABD: The abdomen is soft. Bowel sounds are normal. He has no distension. No mass is present. There is no tenderness. There is no rebound, no guarding, no Parsons's sign and no tenderness at McBurney's point. Rovsig negative. MUSC/SKEL: Normal range of motion. There is no tenderness or deformity. 2+ pitting edema bilaterally in lower extremities. LYMPH: No cervical adenopathy. NEURO: He is alert and oriented to person, place, and time. He has normal strength. No cranial nerve deficit or sensory deficit. Coordination and gait normal. GCS eye subscore is 4. GCS verbal subscore is 5. GCS motor subscore is 6. Cerebellar tests wnl. SKIN: Skin is warm and dry. He is not diaphoretic. PSYCH: He has a normal mood and affect. Behavior is normal. Judgment and thought content normal. Course 1900: Past medical records reviewed. The patient was evaluated in room A9A, and a complete history and physical examination were performed. The patient was hypoxia on room air and was immediately put on oxygen which improved his O2 sat and pulse. 2005: Vital signs stable. Nasal cannula O2 support. Labs show worsening creatinine level. Today creatinine was 2.48 from baseline 2.2. His potassium was 5.6. NT Pro B level was 6158. Glucose is 378. Sodium is 128 which is low due to hyperglycemia. Chest X-Ray shows cardiomegaly and cephalization which is consistent with CHF exacerbation. Patient is being given calcium gluconate, kayexalate, 5 units of insulin, and 40 units of lasix. 2016: I reviewed the patient's case with Dr. Carrera [facility] Hospitalist. He will evaluate the patient for further management. Administered Medications Discontinued Medications Aspirin (Aspirin) 324 mg PO NOW STA Stop: 11/17/18 19:07 Last Admin: 11/17/18 19:26 Dose: Not Given Documented by: [id number] Aspirin (Aspirin Chew) Confirm Administered Dose 324 mg .ROUTE .STK-MED ONE Stop: 11/17/18 19:25 Last Admin: 11/17/18 19:26 Dose: 324 mg Documented by: [id number] Calcium Gluconate (Calcium Gluconate 10%) Confirm Administered Dose 1,000 mg IV .STLSAT [place]-MED ONE Stop: 11/17/18 20:26 Last Admin: 11/17/18 20:39 Dose: Not Given Documented by: [id number] Furosemide (Lasix) Confirm Administered Dose 40 mg IV .STK-MED ONE Stop: 11/17/18 20:26 Last Admin: 11/17/18 20:31 Dose: 40 mg Documented by: [id number] Calcium Gluconate 1,000 mg/ (Sodium Chloride) 60 mls @ 240 mls/hr IV NOW STA Stop: 11/17/18 20:15 Last Admin: 11/17/18 20:39 Dose: 240 mls/hr Documented by: [id number] Insulin Human Regular 5 units/ (Syringe) 9.9 mls @ 3 mls/sec IV ONE STA Stop: 11/17/18 20:02 Last Admin: 11/17/18 20:31 Dose: 3 mls/sec Documented by: [id number] Cosigned by: [id number] Furosemide 40 mg/ Syringe 4 mls @ 4 mls/min IV NOW STA Stop: 11/17/18 20:02 Last Admin: 11/17/18 20:39 Dose: Not Given Documented by: [id number] Insulin Human Regular (Novolin R U-100 Per Unit) Confirm Administered Dose 5 units .ROUTE .STK-MED ONE Stop: 11/17/18 20:28 Last Admin: 11/17/18 20:39 Dose: Not Given Documented by: [id number] Sodium Polystyrene Sulfonate (Kayexalate) 15 gm PO NOW STA Stop: 11/17/18 20:02 Last Admin: 11/17/18 20:31 Dose: 15 gm Documented by: [id number] Medical Decision Making Medical Records Attestation: I reviewed the patient's medical records. Home Medications Current Medication List: was personally reviewed by me Laboratory Data Attestation: I reviewed the patient's lab results. Result diagrams: 11/17/18:19 11/17/18 19: Lab Results 11/17/18 11/17/18 11/17/18 Range/Units 19:: 19: WBC 9.56 (4.8-10.8) K/uL RBC 3.36 L (4.7-6.1) M/uL Hgb 10.6 L (14.0-18.0) g/dL Hct 32.5 L (42-52) % MCV 96.7 (80-100) fL MCH 31.5 (25-34) pg MCHC 32.6 (32-36) g/dL RDW Std Deviation 61.9 H (36.4-46.3) fL RDW Coeff of Nadege 17.4 H (11.5-14.5) % Plt Count 172 (130-400) K/uL MPV 11.0 H (7.4-10.4) fL Immature Gran % (Auto) 2.6 % Neut % (Auto) 74.0 % Lymph % (Auto) 13.4 % Harper % (Auto) 7.0 % Eos % (Auto) 2.9 % Baso % (Auto) 0.1 % Immature Gran # (Auto) 0.25 H (0.00-0.02) K/uL Neut # (Auto) 7.07 H (1.4-6.5) K/uL Lymph # (Auto) 1.28 (1.2-3.4) K/uL Harper # (Auto) 0.67 H (0.11-0.59) K/uL Eos # (Auto) 0.28 (0-0.5) K/uL Baso # (Auto) 0.01 (0-0.2) K/uL VBG pH 7.38 (7.36-7.41) VBG pCO2 42 (38-50) mmHg VBG pO2 37 mmHg VBG HCO3 24 mmol/L VBG O2 Saturation 67.7 % VBG Base Excess -1.3 mEq/L Barometric Pressure 735.3 mm/Hg Sodium 128 L (136-145) mmol/L Potassium 5.6 H (3.5-5.1) mmol/L Chloride 98 (98-107) mmol/L Carbon Dioxide 26 (21-32) mmol/L Anion Gap 4.0 (3-11) BUN 61 H (7-18) mg/dl Creatinine 2.48 H (0.6-1.4) mg/dl Est Cr Clr Drug Dosing 29.3 ml/min Est GFR ( Amer) 27.0 Est GFR (Non-Af Amer) 23.3 BUN/Creatinine Ratio 24.5 H (10-20) Glucose 317 H (70-99) mg/dl POC Glucose (70-99) Calcium 8.9 (8.5-10.1) mg/dl Troponin I < 0.015 (0-0.045) ng/ml NT-Pro-B Natriuret Pep 6158 H (0-1800) pg/ml Beta-Hydroxybutyric Acd 1.59 (0.2-2.81) mg/dl Urine Color Urine Appearance (Clear) Urine pH (4.5-7.5) Ur Specific [place] (1.000-1.030) Urine Protein (Negative) Urine Glucose (UA) (Negative) Urine Ketones (Negative) Urine Blood (Negative) Urine Nitrite (Negative) Urine Bilirubin (Negative) Urine Urobilinogen (Negative) Ur Leukocyte Esterase (Negative) Urine WBC (Auto) (0-5) /hpf Urine RBC (Auto) (0-4) /hpf U Hyaline Cast (Auto) (0-5) /lpf U Epithel Cells (Auto) (0-5) /lpf Urine Bacteria (Auto) (Negative) Influenza Type A (PCR) (Neg) Influenza Type B (PCR) (Neg) 11/17/18 11/17/18 11/17/18 Range/Units 19:20 19:25 19:55 WBC (4.8-10.8) K/uL RBC (4.7-6.1) M/uL Hgb (14.0-18.0) g/dL Hct (42-52) % MCV (80-100) fL MCH (25-34) pg MCHC (32-36) g/dL RDW Std Deviation (36.4-46.3) fL RDW Coeff of Nadege (11.5-14.5) % Plt Count (130-400) K/uL MPV (7.4-10.4) fL Immature Gran % (Auto) % Neut % (Auto) % Lymph % (Auto) % Harper % (Auto) % Eos % (Auto) % Baso % (Auto) % Immature Gran # (Auto) (0.00-0.02) K/uL Neut # (Auto) (1.4-6.5) K/uL Lymph # (Auto) (1.2-3.4) K/uL Harper # (Auto) (0.11-0.59) K/uL Eos # (Auto) (0-0.5) K/uL Baso # (Auto) (0-0.2) K/uL VBG pH (7.36-7.41) VBG pCO2 (38-50) mmHg VBG pO2 mmHg VBG HCO3 mmol/L VBG O2 Saturation % VBG Base Excess mEq/L Barometric Pressure mm/Hg Sodium (136-145) mmol/L Potassium (3.5-5.1) mmol/L Chloride (98-107) mmol/L Carbon Dioxide (21-32) mmol/L Anion Gap (3-11) BUN (7-18) mg/dl Creatinine (0.6-1.4) mg/dl Est Cr Clr Drug Dosing ml/min Est GFR ( Amer) Est GFR (Non-Af Amer) BUN/Creatinine Ratio (10-20) Glucose (70-99) mg/dl POC Glucose 328 H (70-99) Calcium (8.5-10.1) mg/dl Troponin I (0-0.045) ng/ml NT-Pro-B Natriuret Pep (0-1800) pg/ml Beta-Hydroxybutyric Acd (0.2-2.81) mg/dl Urine Color Yellow Urine Appearance Clear (Clear) Urine pH 6.0 (4.5-7.5) Ur Specific [place] 1.015 (1.000-1.030) Urine Protein 1+ H (Negative) Urine Glucose (UA) 1+ H (Negative) Urine Ketones Negative (Negative) Urine Blood Negative (Negative) Urine Nitrite Negative (Negative) Urine Bilirubin Negative (Negative) Urine Urobilinogen Negative (Negative) Ur Leukocyte Esterase Trace H (Negative) Urine WBC (Auto) 1-5 (0-5) /hpf Urine RBC (Auto) 0-4 (0-4) /hpf U Hyaline Cast (Auto) 1-5 (0-5) /lpf U Epithel Cells (Auto) 10-20 H (0-5) /lpf Urine Bacteria (Auto) Negative (Negative) Influenza Type A (PCR) Neg for Influ A (Neg) Influenza Type B (PCR) Neg for Influ B (Neg) Imaging Data Attestation: I personally reviewed and interpreted this imaging study as follows: My Impression: Chest X-Ray: Cardiomegaly with cephalization. Pacemaker in place. No fracture of the leads and no bony fractures. Airway clear. No free air under the diaphragm. Radiologist's Impression: Radiology results as stated below per my review and the radiologist's interpretation: XR chest 1V portable HISTORY: Atypical Chest Pain COMPARISON: Chest 10/31/2018. FINDINGS: No pneumothorax. Mild interstitial pulmonary edema and small bilateral pleural effusions persist. The heart remains enlarged. Left-sided dual-chamber pacemaker. Dense left midlung zone nodule remains unchanged. This likely represents a calcified granuloma. No new focal lung consolidations. IMPRESSION: No significant change in the mild interstitial pulmonary edema and small bilateral pleural effusions. Electronically signed by: Rob Fleming M.D. 11/17/2018 8:32 PM ECG Data Attestation: I personally reviewed and interpreted this ECG as follows: Indication: toxicologic Rate (beats per minute): 84 Rhythm: other (paced rhythm) Findings: + other (QRS interval is 210. QTc interval is 560. ) Comparison ECG Date: from (October 2018) Change: no significant change Blood Pressure Blood Pressure Findings: Elevated blood pressure Blood Pressure Disposition: further management by hospitalist ROBERT Gonzales 1899: Past medical records reviewed. The patient was evaluated in room A9A, and a complete history and physical examination were performed. The patient was hypoxia on room air and was immediately put on oxygen which improved his O2 sat and pulse. 2004: Vital signs stable. Nasal cannula O2 support. Labs show worsening creatinine level. Today creatinine was 2.48 from baseline 2.2. His potassium was 5.6. NT Pro B level was 6158. Glucose is 378. Sodium is 128 which is low due to hyperglycemia. Chest X-Ray shows cardiomegaly and cephalization which is consistent with CHF exacerbation. Patient is being given calcium gluconate, kayexalate, 5 units of insulin, and 40 units of lasix. 2016: I reviewed the patient's case with Dr. Debi York Hospitalist. He will evaluate the patient for further management. Impression & Plan Hypoxia, Hyperkalemia, CHF exacerbation, Hyperglycemia, Hypernatremia Critical Care Time I have personally spent greater than 34 minutes of critical care time in the direct management of this patient. This includes bedside care, interpretation of diagnostic studies, and testing, discussion with consultants, patient, and family members, and other required patient management activities. This 34 minutes is in excess of all separately billable procedures. Critical Care Time: Yes Total Critical Care Time: 34 Discharge Plan Visit Data Chief Complaint: Hyperglycemia Stated Complaint: BLOOD SUGAR IS 450 ED Provider: Ash Wilson Discharge Problem: Hypoxia, Hyperkalemia, CHF exacerbation, Hyperglycemia, Hypernatremia Patient Disposition: Being Evaluated by Hospitalist Forms Stand Alone Forms: My [facility] Prescriptions Prescriptions: No Action carvedilol 12.5 mg tablet 12.5 mg PO AMHS RF: 0 amlodipine 5 mg tablet 5 mg PO QAM RF: 0 aspirin [Aspir-81] 81 mg Tablet,Delayed Release (Dr/Ec) 81 mg PO QAM RF: 0 spironolactone 25 mg tablet 12.5 mg PO QAM RF: 0 folic acid 1 mg tablet 5 tab PO QAM RF: 0 cholecalciferol (vitamin D3) [Vitamin D3] 1,000 unit Capsule 1,000 unit PO QAM RF: 0 atorvastatin 20 mg Tablet 20 mg PO HS RF: 0 calcitriol 0.5 mcg Capsule 0.5 mcg PO MOWEFR RF: 0 acetaminophen [Tylenol] 325 mg Tablet 325 mg PO Q6H PRN (Reason: Fever Or Pain) RF: 0 polyethylene glycol 3350 [Miralax] 17 gram Powder In Packet 17 g PO QAM RF: 0 furosemide 40 mg tablet 40 mg PO QAM RF: 0 sertraline 50 mg tablet 50 mg PO QAM RF: 0 Levemir FlexTouch U-100 Insuln 100 unit/mL (3 mL) insulin pen 1 dose subcut DIRECTED RF: 0 Referrals Referrals: Hilario Yoon MD [Primary Care Provider] - Discharge Problem: CHF exacerbation Qualifiers: Heart failure type: unspecified Qualified Code(s): I50.9 - Heart failure, unspecified The scribe's documentation has been prepared under my direction and personally reviewed by me in its entirety. I confirm that the note above accurately reflects all work, treatment, procedures, and medical decision making performed by me.
[2018-11-17] MEDS ORDERED: NITROGLYCERIN SL 0.4 MG/TAB TAB SL PRN (23:18)
[2018-11-17] MEDS ORDERED: ACETAMINOPHEN 325 MG TAB PO PRN ×2 (23:18)
[2018-11-17] MEDS ORDERED: ONDANSETRON INJ 2 MG/ML 2 ML VIAL IV PRN (23:18)
[2018-11-17] MEDS ORDERED: POLYETHYLENE (MIRALAX) 17 GM PACK PO PRN (23:18)
[2018-11-17] MEDS ORDERED: PHARMACY GLYCEMIC MGMT CONSULT PRN (23:26)
[2018-11-17] MEDS ORDERED: DEXTROSE 50% 50 ML SYRINGE IV PRN (23:45)
[2018-11-17] MEDS ORDERED: GLUCOSE 10 TABS/TUBE PO PRN (23:45)
[2018-11-17] MEDS ORDERED: GLUCAGON FOR INJ 1 MG VIAL IM PRN (23:45)
[2018-11-17] MEDS ORDERED: CARBOHYDRATES FOR HYPOGLYCEMIA PO PRN (23:45)
[2018-11-17] MEDS ORDERED: GLUCOSE 40% GEL 15 GM TUBE PO PRN (23:45)
[2018-11-18] MEDS ORDERED: INSULIN GLARGINE SOLOSTAR 100 UNITS/ML 3 ML PEN SC ONE
[2018-11-18] MEDS: INSULIN ASPART 100 UNITS/ML 3 ML PEN SC SCH ×6 (00:11→21:58)
--- NOTE | 2018-11-18 00:55 | History and Physical Report ---
DATE OF ADMISSION: 11/17/2018 CHIEF COMPLAINT: Hyperglycemia and found to be hypoxic in the ER. HISTORY OF PRESENT ILLNESS: This is an 83-year-old male with past medical history significant for type 2 diabetes, diabetic retinopathy, hyperlipidemia, obstructive sleep apnea, not using CPAP since last 2 weeks because it got broke, chronic atrial fibrillation, sinus node dysfunction status post pacemaker, no longer on Coumadin, chronic kidney disease stage IV, chronic CHF, hypertension, CAD, history of basal cell carcinoma, presents with hyperglycemia at home. The patient lives at home with his . The patient recently was at [facility] for rehab and got discharged home. He walks with the help of a walker. Today, his sugars were running high at home 300-400, so he came to the ER. In the ER, he received a dose of IV insulin and also his potassium was high at 5.6, so he was given calcium gluconate and Kayexalate ,also he was hypoxic on room air at 84% and on 2 liters saturating fine .He thinks his lower extremity edema is somewhat worsened, but he states his weight is remaining stable at home, he checks his weight daily. His Lasix has recently been decreased to 40 mg daily and to take additional dose if gains weight of about 3 pounds in 2 days. Recently also evaluated by Cardiology as outpatient. Received a dose of IV Lasix in ER.We were called for admission because of his hyperglycemia, hyperkalemia and hypoxia. Currently resting comfortably and hemodynamically stable. Denies any headache, no blurred vision, no earache, no runny nose, no sore throat, no difficulty swallowing. Appetite is okay. No chest pain. He is always short of breath since last 2 years from his congestive heart failure. No cough, no fever, no chills, no nausea, no abdominal pain. Normal bowel and bladder movements. No hematuria, no burning micturition. No black stools or hematochezia. Currently, resting comfortably. ALLERGIES: BETA BLOCKERS, ZOLPIDEM, MOMETASONE FUROATE. PAST MEDICAL HISTORY: As mentioned above. PAST SURGICAL HISTORY: Colonoscopy, injection of eye drug, cataract, pacemaker insertion, appendectomy, tonsillectomy, removal of pilonidal cyst. MEDICATIONS: The patient is on Lantus 40 units daily as directed, Lasix 40 mg p.o. daily in the a.m. extra tablet in the afternoon for shortness of breath and swelling, amlodipine 5 mg p.o. daily, aspirin 81 mg p.o. daily, Lipitor 20 mg p.o. daily, calcitriol 0.5 mcg p.o. daily on Mondays, Wednesdays, and Fridays, Coreg 12.5 mg p.o. b.i.d., vitamin D 1000 units p.o. daily, folic acid 5 mg p.o. daily, MiraLax 17 gm p.o. daily, Zoloft 50 mg p.o. daily, spironolactone 12.5 mg p.o. daily, Artificial Tears both eyes p.r.n. FAMILY HISTORY: Significant for mother had allergies, father has heart disorder. Brother has motor vehicle accident. Sister and brother had stroke. SOCIAL HISTORY: , quit smoking in 1977, smoked 3 packs a day for 27 years. Does have wine occasionally. No drug use. REVIEW OF SYMPTOMS: As per HPI. Rest of review of system is negative. PHYSICAL EXAMINATION: GENERAL: The patient is obese, not in acute distress. VITAL SIGNS: Temperature 36.4, pulse 60, respiratory rate 24, blood pressure 140/56, oxygen 96% on 2 liters. HEENT: No pallor, no icterus. Pupils equal, round, and reactive. NECK: No JVD. No neck masses, no carotid bruit. CARDIOVASCULAR: S1, S2 heard, regular rate and rhythm, no murmur, no gallop. RESPIRATORY SYSTEM: Normal AP diameter. No accessory muscle use. No wheezing, no crackles. ABDOMEN: Soft, bowel sounds present. Nontender, nondistended. CENTRAL NERVOUS SYSTEM: Cranial nerves II-XII grossly intact. Nonfocal. EXTREMITIES: Lower extremity edema present. Chronic skin changes seen. LABS: WBC 10.5, hemoglobin 10.6, hematocrit 32.5, platelets 172. Sodium 128, potassium 5.6, chloride 98, bicarbonate 26, BUN 61, creatinine 2.4, serum glucose 317. Troponin-I less than 0.015. BNP 6158. Beta hydroxybutyrate acid 1.5. Urinalysis positive for protein and glucose, trace leukocyte esterase. Influenza A and B, PCR negative. Chest x-ray, no significant change other than mild interstitial pulmonary edema and small bilateral pleural effusions. EKG: Ventricular paced rhythm, rate of 84. ASSESSMENT AND PLAN: This is an 83-year-old male who presents with hyperglycemia and found to have hyperkalemia and also hypoxia. 1. Hyperglycemia. Sugars running high at home, received dose of IV insulin in the ER. We will place him on Lantus 25 units b.i.d. insulin sliding scale. Follow HbAlc level. Closely monitor his blood sugars. We will consult pharmacy for glycemic management. 2. Hyperkalemia and hyponatremia probably from high blood sugar. Received calcium chloride and Kayexalate in the ER. Hyponatremia also could be from elevated sugar also could be from volume overload. Received Lasix. We will follow the labs in a.m. 3. Hypoxia, history of cardiomyopathy. Acute systolic CHF? His EF has improved from 50-55% on recent echo. Lasix 40 mg daily and extra dose if needed at home. Slight increase in lower extremity edema as per patient. He was hypoxic on room air requiring 2lt oxygen. We will place him on IV Lasix 40 b.i.d. and daily weights, I's and O's. Follow repeat echocardiogram and consult Cardiology in the a.m. Will also check lower extremity dopplers. 4. Obstructive sleep apnea. He was placed on CPAP which the patient broke 2 weeks ago and not using CPAP for last 2 weeks . Social service to help with his CPAP at home. 5. Presumed CAD with anteroinferior infarct on nuclear testing. Declined cardiac catheterization as per Cardiology note. Currently asymptomatic. Continue his aspirin, statin and Coreg. 6. History of acute kidney injury and chronic kidney disease stage IV, baseline creatinine around 2, currently with creatinine of 2.4. Could be cardiorenal, continue Lasix. We will follow labs, if creatinine worsens we will consult Nephrology. 7. Hypertension. Continue his home medications, amlodipine, diuretics, Coreg. Monitor his blood pressure. 8. Depression. Continue Zoloft. 9. Hyperlipidemia. Continue statin. 10. Chronic atrial fibrillation, sinus node dysfunction status post pacemaker, rate controlled with Coreg. No longer on anticoagulation. 11. Deep venous thrombosis prophylaxis. We will place him on heparin subQ. 12. Disposition: Closely monitor in the tele floor. Level 1 full code. MTDD
[2018-11-18 05:37] LABS: Basophils # (auto) 0.01 K/uL (0-0.2); Basophils % (auto) 0.1 %; Eosinophils # (auto) 0.33 K/uL (0-0.5); Eosinophils % (auto) 3.4 %; Hematocrit (blood only) 30.5 % (42-52); Hemoglobin 10.1 g/dL (14.0-18.0); Immature Granulocytes # (auto) 0.23 K/uL (0.00-0.02); Immature Granulocytes % (auto) 2.4 %; Lymphocytes # (auto) 2.02 K/uL (1.2-3.4); Mean Corpuscular Hgb Conc 33.1 g/dL (32-36); Mean Corpuscular Volume 97.1 fL (80-100); Monocytes % (auto) 6.2 %; Neutrophils # (auto) 6.43 K/uL (1.4-6.5); Neutrophils % (auto) 66.9 %; Platelet Count 154 K/uL (130-400); RDW Coefficient of Variation 17.5 % (11.5-14.5); RDW Standard Deviation 62.1 fL (36.4-46.3); Red Blood Count 3.14 M/uL (4.7-6.1); White Blood Count 9.62 K/uL (4.8-10.8)
[2018-11-18 06:04] LABS: BUN Creatinine Ratio 24.5 (10-20); Calcium 8.8 mg/dl (8.5-10.1); Creatinine Clr Calc Pharmacy 29.9 ml/min; Est GFR (African American) 28.8; Est GFR (Non-African American) 24.8; Magnesium 2.5 mg/dl (1.8-2.4)
[2018-11-18] MEDS: HEPARIN SOD 5,000 UNIT/0.5 ML VIAL SQ SCH ×3 (06:26→21:55)
[2018-11-18] MEDS: ASPIRIN 81 MG ECTAB PO SCH (08:10)
[2018-11-18] MEDS: CHOLECALCIFEROL 1,000 UNITS TAB PO SCH (08:10)
[2018-11-18] MEDS: AMLODIPINE BESYLATE 5 MG TAB PO SCH (08:11)
[2018-11-18] MEDS: FOLIC ACID 1 MG TAB PO SCH (08:11)
[2018-11-18] MEDS: CARVEDILOL 12.5 MG TAB PO SCH ×2 (08:12→21:54)
[2018-11-18] MEDS: POLYETHYLENE (MIRALAX) 17 GM PACK PO SCH (08:12)
[2018-11-18] MEDS: SERTRALINE HCL 50 MG TABLET PO SCH (08:12)
[2018-11-18] MEDS: SPIRONOLACTONE 25 MG TAB PO SCH (08:13)
[2018-11-18] MEDS: FUROSEMIDE 40 MG in SYRINGE 0 ML IV SCH ×2 (08:13→17:49)
[2018-11-18] MEDS: INSULIN GLARGINE SOLOSTAR 100 UNITS/ML 3 ML PEN SC SCH ×2 (08:17→21:57)
--- NOTE | 2018-11-18 09:15 | Ultrasound Report ---
US venous doppler LE BI HISTORY: Pain. Edema. dvt? COMPARISON STUDY: None. FINDINGS: There is normal compressibility, flow, and augmentation within the bilateral lower extremit y deep venous systems. IMPRESSION: No DVT within the right or left lower extremity. The above report was generated using voice recognition software. It may contain grammatical, syntax or spelling errors. Electronically signed by: Devan Hennessy M.D. 11/18/2018 9:14 AM
[2018-11-18] MEDS ORDERED: PERFLUTREN LIPID MICROSPHERE (DEFINITY) IV ONE (10:20)
--- NOTE | 2018-11-18 11:03 | Pharmacy Report ---
Glycemic Control Consultation - Date of Service November 18, 2018 - Scope Scope: Glycemic Pharmacist consulted by Dr Carrera on 11/17 for glycemic control and to write orders per [facility] inpatient glycemic control protocol - Objective Weight: 108.8 kg Accuchecks BSG (last 24hrs): 11/17/18 11/17/18 11/17/18 19:19 19:25 22:54 Glucose 317 H POC Glucose 328 H 183 H 11/18/18 11/18/18 11/18/18 03:47 05:18 07:20 Glucose 155 H POC Glucose 176 H 166 H Laboratory Data (last 24hrs): 11/17/18 11/18/18 19:19 05:18 Potassium 5.6 H 5.0 Carbon Dioxide 26 26 Anion Gap 4.0 4.0 Creatinine 2.48 H 2.35 H Est Cr Clr Drug Dosing 29.3 29.9 Beta-Hydroxybutyric Acd 1.59 - Recent Pertinent Medications Outpatient Anti-diabetic Regimen: * Levemir 10 units BID * A1c = 7.2 % 10/02/18, updated one is currently pending The patient is currently receiving: * Basal insulin: Lantus 15 units x 1 last evening, then 10 units BID * Correctional Insulin: Novolog Correction per scale ACHS Goal Range: Low 110 mg/dL - High 140 mg/dL Correction Factor: 25 mg/dL/unit * Prandial insulin: Per carb ratio of 1 unit per 8 grams CHO consumed Risk Factors for Insulin Resistance: * no major risk factors - Assessment & Plan Assessment & Plan: ASSESSMENT: * Mr. Wilson was admitted overnight for SOB and hyperglycemia. BSGs were in the 300s [employer] and upon arrival yesterday. They are much improved this AM after basal + bolus therapy initiated. Fasting = 155 mg/dL. * His current regimen reflects similar dosing to his most recent admission, which produced well controlled BSGs. Will plan to continue this for now. PLAN FOR INPATIENT GLYCEMIC CONTROL: * Basal insulin - no change * Lantus 10 units SQ BID * Bolus insulin - no change * NovoLog per scale ACHS or Q6hrs while NPO * Goal Range: Low 110 mg/dL - High 140 mg/dL * Correction Factor: 25 mg/dL/unit * Nutritional / Prandial insulin per carb ratio of 1 unit per 8 grams CHO consumed * Please note that the plan above was derived based on current level of insulin resistance and hospital stress. These recommendations are appropriate for inpatient admission only. Plan of care upon discharge will need to be reassessed to avoid potential outpatient hypo/hyperglycemia. Thank you.
--- NOTE | 2018-11-18 13:04 | Hospitalist Progress Note ---
Date of Service November 18, 2018 Assessment & Plan (1) Hyperglycemia: Noted to have blood sugar more than 300 at home He got anxious and came to the emergency room Noted to have hypoxic and hyperkalemia on arrival Admitted to continue management for above condition Blood sugar is better Denies any symptoms (2) Hypoxia: History of cardiomyopathy with congestive heart failure and sleep apnea Noted to have hypoxic on arrival Seems to be multifactorial No overt CHF on x-ray and no overt weight gain and/or fluid overload Echocardiogram showed normal left ventricular size with normal all thickness, apical decreased wall movement likely due to pacemaker wire, left atrial dilatation with grade 2 diastolic dysfunction, moderate to severe aortic stenosis, moderate MR, increased right ventricular pressure and LV EF is 50-55% Has been improving with continued management (3) CKD stage 4 due to type 2 diabetes mellitus: Noted to have hyperkalemia without significant creatinine abnormality Received Kayexalate and other measures to improve potassium Potassium has been 5.0 this morning Present on Admission?: Yes (4) Atrial fibrillation: Heart rate is controlled now Has permanent pacemaker Continue current medications (5) Hyperkalemia: As above Low potassium diet (6) Ischemic cardiomyopathy: No acute cardiac symptoms but mentions to have increasing leg swelling Chest x-ray did not show any acute CHF. Recent echo showed EF has been improving . Ultrasound of the legs no DVT We will continue current medications and Lasix will be given intravenous Echocardiogram showed normal left ventricular size with normal all thickness, apical decreased wall movement likely due to pacemaker wire, left atrial dilatation with grade 2 diastolic dysfunction, moderate to severe aortic stenosis, moderate MR, increased right ventricular pressure and LV EF is 50-55% Cardiology evaluation (7) Obstructive sleep apnea: He was placed on CPAP which the patient broke 2 weeks ago and not using CPAP for last 2 weeks . Social service to help with his CPAP at home. Likely the cause for his low O2 saturation level Subjective He is an 83-year-old male with history of diabetes, cardiomyopathy, chronic kidney disease, atrial fibrillation status post pacemaker, hypertension and hyperlipidemia presents with hyperglycemia and found to have hyperkalemia and a lso hypoxia in emergency room. 11/18 Patient was seen and examined in telemetry unit Has been feeling better and denies any symptoms on admission and since admission Denies any shortness of breath and/or palpitation Physical Exam Vital Signs (Past 24 Hours): Last Vital Signs Temp 36.4 C L 11/18/18 10:49 Pulse 61 11/18/18 10:49 Resp 22 11/18/18 10:49 BP 111/65 11/18/18 10:49 Pulse Ox 95 11/18/18 10:49 Constitutional: WD/WN, vitals as above Eyes: PERRL, conjunctivae normal, anicteric sclerae ENMT: external ear and nose normal, oropharynx normal Neck: trachea midline, no thyromegaly Respiratory: normal respiratory effort; no respiratory distress Aus cultation: + diminished lung sounds and + crackles (Minimal crackles at the bases); no wheezes Cardiovascular: Rate/Rhythm: + abnormal rate and + abnormal rhythm Heart Sounds: normal S1 and normal S2 Gastrointestinal (Abdomen): normal bowel sounds, soft, nontender, no hepatosp lenomegaly Neurologic: Alert, awake and oriented x3. Generally weak Results & Data Laboratory Results Short CBC 11/17/18 11/18/18 Range/Units 19:19 05:18 WBC 9.56 9.62 (4.8-10.8) K/uL Hgb 10.6 L 10.1 L (14.0-18.0) g/dL Hct 32.5 L 30.5 L (42-52) % Plt Count 172 154 (130-400) K/uL BMP 11/17/18 11/18/18 19:19 05:18 Sodium 128 L 131 L Potassium 5.6 H 5.0 Chloride 98 101 Carbon Dioxide 26 26 BUN 61 H 57 H Creatinine 2.48 H 2.35 H Glucose 317 H 155 H Calcium 8.9 8.8 Cardiac Enzymes 11/17/18 Range/Units 19:19 Troponin I < 0.015 (0-0.045) ng/ml Urine 11/17/18 Range/Units 19:55 Urine Color Yellow Urine Appearance Clear (Clear) Urine pH 6.0 (4.5-7.5) Ur Specific [place] 1.015 (1.000-1.030) Urine Protein 1+ H (Negative) Urine Glucose (UA) 1+ H (Negative) Medications Administered Current Inpatient Medications Acetaminophen (Tylenol) 325 mg PO Q6H PRN PRN Reason: Fever Or Pain Stop: 12/17/18 23:17 Acetaminophen (Tylenol) 650 mg PO Q4H PRN PRN Reason: Pain or Fever Stop: 12/17/18 23:17 Amlodipine Besylate (Norvasc) 5 mg PO QAM [facility] Stop: 12/18/18 08:59 Last Admin: 11/18/18 08:11 Dose: 5 mg Documented by: Aspirin (Ecotrin Ectab) 81 mg PO QAM [facility] Stop: 12/18/18 08:59 Last Admin: 11/18/18 08:10 Dose: 81 mg Documented by: Atorvastatin Calcium (Lipitor) 20 mg PO HS [facility] Stop: 12/18/18 20:59 Calcitriol (Racaltrol) 0.5 mcg PO MoWeFr@0900 [facility] Stop: 12/19/18 08:59 Carvedilol (Coreg) 12.5 mg PO AMHS [facility] Stop: 12/18/18 08:59 Last Admin: 11/18/18 08:12 Dose: 12.5 mg Documented by: Dextrose (Dextrose 50%) 25 - 50 ml IV UD PRN; Protocol PRN Reason: Hypoglycemia Protocol Stop: 12/17/18 23:44 Folic Acid (Folvite) 5 mg PO [facility] Stop: 12/18/18 08:59 Last Admin: 11/18/18 08:11 Dose: 5 mg Documented by: Glucagon (Glucagen) 1 mg IM UD PRN; Protocol PRN Reason: Hypoglycemia Protocol Stop: 12/17/18 23:44 Glucose (Glucose 40%) 15 - 30 gm PO UD PRN; Protocol PRN Reason: Hypoglycemia Protocol Stop: 12/17/18 23:44 Glucose (Dex4 Glucose) 4 - 8 tabs PO UD PRN; Protocol PRN Reason: Hypoglycemia Protocol Stop: 12/17/18 23:44 Heparin Sodium (Porcine) (Heparin Sodium (Porcine)) 5,000 units SQ Q8 [facility] Stop: 12/18/18 05:59 Last Admin: 11/18/18 06:26 Dose: 5,000 units Documented by: Furosemide 40 mg/ Syringe 4 mls @ 4 mls/min IV BID17 [facility] Stop: 12/18/18 08:59 Last Admin: 11/18/18 08:13 Dose: 4 mls/min Documented by: Insulin Aspart (Novolog Flexpen) 0 units SC ACHS [facility]; Protocol Stop: 12/18/18 07:29 Last Admin: 11/18/18 12:21 Dose: 5 units Documented by: Insulin Glargine (Lantus Solostar Pen) 10 units SC BID [facility] Stop: 12/18/18 08:59 Last Admin: 11/18/18 08:17 Dose: 10 units Documented by: Miscellaneous (Carbohydrates For Hypoglycemia) 15 - 30 gm PO UD PRN PRN Reason: Hypoglycemia Treatment Stop: 12/17/18 23:44 Miscellaneous Information (Consult Glycemic Management Pharmacy) 1 ea N/A UD PRN PRN Reason: Consult Stop: 12/17/18 23:25 Nitroglycerin (Nitrostat) 0.4 mg SL UD PRN PRN Reason: Chest Pain Stop: 12/17/18 23:17 Ondansetron HCl (Zofran) 4 mg IV Q6H PRN PRN Reason: Nausea Stop: 12/17/18 23:17 Polyethylene Glycol (Miralax Powder Packet) 17 gm PO QAM [facility] Stop: 12/18/18 08:59 Last Admin: 11/18/18 08:12 Dose: 17 gm Documented by: Polyethylene Glycol (Miralax Powder Packet) 17 gm PO DAILY PRN PRN Reason: Constipation Stop: 12/17/18 23:17 S[facility]raline [facility] ([facility]oloft) [facility] Stop: 12/18/18 08:59 Last Admin: 11/18/18 08:12 Dose: 50 mg Documented by: Spironolactone (Aldactone) 12.5 mg PO QAM [facility] Stop: 12/18/18 08:59 Last Admin: 11/18/18 08:13 Dose: 12.5 mg Documented by: Vitamin D (Vitamin D3) 1,000 [facility] Stop: 12/18/18 08:59 Last Admin: 11/18/18 08:10 Dose: 1,000 units Documented by: (1) Atrial fibrillation Atrial fibrillation type: chronic Qualified Code(s): I48.2 - Chronic atrial fibrillation
[2018-11-18] MEDS ORDERED: ATORVASTATIN 20 MG TAB PO SCH (21:00)
--- NOTE | 2018-11-18 22:24 | Consultation Report ---
DATE OF CONSULTATION: 11/18/2018 CARDIOLOGY CONSULTATION REFERRING PHYSICIAN: Tu Carrera MD PRIMARY CARE PHYSICIAN: Hilario Yoon MD INDICATIONS: Hyperglycemia, hypoxia. HISTORY OF PRESENT ILLNESS: The patient is an 83-year-old male with complex longstanding history. His records per review recent admission in September as well as outpatient visits reflect an underlying history of chronic atrial fibrillation with past symptomatic bradycardia, status post dual-chamber pacemaker insertion, obstructive sleep apnea, on continuous positive airway pressure, hypertension, dyslipidemia and presumed coronary artery disease with past left ventricular dysfunction and class IV renal insufficiency. The patient was recently hospitalized at [facility] after a fall on presentation with obtundation. He has gradually improved since discharge per the patient and after outpatient stays in rehab facilities presents this admission; however, after found blood sugars to be significantly elevated with no means of increasing control. He presented to the Emergency Room where evaluation demonstrated hypoxia at 84% on room air with appropriate oxygenation on 2 liters nasal cannula. He was given a dose of I.V. Lasix and treated for hyperkalemia as well as referred for management of underlying elevated glucoses. The patient noted no acute cardiac complaints, noted weight had been stable, noted no worsening edema, is aware he has not been using continuous positive airway pressure for nearly 2 weeks due to malfunction of machine. Denies any fevers, chills or sweats, cough, hoarseness, wheeze or hemoptysis. Notes no melena or hematochezia, dysuria or hematuria. confirms above and answers questions in addition to the patient ALLERGIES: NOTED TO BE BETA-BLOCKERS THOUGH THE PATIENT IS TOLERATING COREG, ZOLPIDEM. MEDICATIONS: Prior to hospitalization were per list, amlodipine 5 mg p.o. daily, aspirin 81 mg p.o. daily, atorvastatin 20 mg p.o. daily, calcitriol 0.5 mcg p.o. Monday, Monday, Monday; carvedilol 12.5 mg p.o. b.i.d., vitamin D3 1000 units daily, folic acid 5 mg p.o. daily, furosemide 40 mg p.o. daily, Levemir insulin, sertraline 50 mg at bedtime and spironolactone 12.5 mg p.o. daily. PAST SURGICAL HISTORY: Notable for pilonidal cyst resection, cataract extractions, tonsillectomy, appendectomy and pacemaker removal. FAMILY HISTORY: Noncontributory though history of coronary artery disease and vascular disease is present. SOCIAL HISTORY: The patient is a former smoker with past heavy tobacco use, but discontinued in 1977. Uses rare alcoholic beverages. PHYSICAL EXAMINATION: GENERAL: The patient is an age appropriate male, denying any acute distress this morning. VITAL SIGNS: Heart rate 68, blood pressure is 134/74 and O2 saturation is 94% on 2 liters nasal cannula. HEENT: Normocephalic and atraumatic. NECK: Thick. There is no distinct jugular venous distention. LUNGS: Reveal diminished breath sounds bibasilar, but no rhonchi, rale or wheeze. CARDIOVASCULAR: Irregularly irregular. Grade II/ systolic murmur. There is no diastolic murmur. There is no tenderness overlying the pacemaker. ABDOMEN: Obese and soft. EXTREMITIES: Reveal trace pedal edema. NEUROLOGIC: The patient is alert and answering questions appropriately. DATA: Troponin on presentation was less than 0.015. Electrocardiogram reveals ventricular paced rhythm. Echocardiogram today demonstrates findings consistent with prior outpatient studies with focal hypokinesis of the apical, inferior and inferoseptal house with dyssynergic septal contraction pattern. Ejection fraction 55%. There is moderate to borderline severe aortic stenosis. Peak aortic valve velocity of 3.15 m/sec. Calculated aortic valve area of 1.1 cm2. Additional laboratory studies included white cell count of 9.6 and hemoglobin 10.1. Sodium 131, potassium 5, chloride 101, bicarb 28, BUN 57 and creatinine 2.35. Urinalysis revealed 1+ protein, 1+ glucose and trace leukocyte esterase. Chest x-ray revealed mild increase in interstitial markings. No overt infiltrate. Venous Doppler today reveals no deep venous thrombosis. IMPRESSION: Complex 83-year-old male who presents with predominant complaints of hyperglycemia, but no other focal issues, was found to be hypoxic on presentation. 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 Examination today does not suggest significant volume overload. He has received I.V. diuretics and is scheduled to receive an additional dose this evening. Blood sugars are being treated. Echocardiogram demonstrates as noted above a slight increase in degree of aortic stenosis, but not critical. Anticipate resumption of continuous positive airway pressure usage. No acute cardiac issues noted. Agree with gentle diuresis with holding I.V. diuretics after p.m. dose today. We will follow the patient in the hospital.
[2018-11-19] MEDS: HEPARIN SOD 5,000 UNIT/0.5 ML VIAL SQ SCH ×2 (06:31→14:33)
[2018-11-19 06:39] LABS: Estimated Average Glucose 189 mg/dl; Hemoglobin A1C 8.2 % (4.5-5.6)
[2018-11-19] MEDS: SERTRALINE HCL 50 MG TABLET PO SCH (07:47)
[2018-11-19] MEDS: AMLODIPINE BESYLATE 5 MG TAB PO SCH (07:47)
[2018-11-19] MEDS: CARVEDILOL 12.5 MG TAB PO SCH (07:47)
[2018-11-19] MEDS: ASPIRIN 81 MG ECTAB PO SCH (07:48)
[2018-11-19] MEDS: CHOLECALCIFEROL 1,000 UNITS TAB PO SCH (07:48)
[2018-11-19] MEDS: FOLIC ACID 1 MG TAB PO SCH (07:48)
[2018-11-19] MEDS: SPIRONOLACTONE 25 MG TAB PO SCH (07:49)
[2018-11-19] MEDS: POLYETHYLENE (MIRALAX) 17 GM PACK PO SCH (07:50)
[2018-11-19] MEDS: INSULIN ASPART 100 UNITS/ML 3 ML PEN SC SCH ×2 (07:51→12:17)
[2018-11-19] MEDS: INSULIN GLARGINE SOLOSTAR 100 UNITS/ML 3 ML PEN SC SCH (07:51)
[2018-11-19] MEDS: FUROSEMIDE 40 MG in SYRINGE 0 ML IV SCH (07:54)
[2018-11-19] MEDS ORDERED: CALCITRIOL 0.25 MCG CAPSULE PO SCH (09:00)
[2018-11-19 09:15] LABS: Basophils # (auto) 0.01 K/uL (0-0.2); Basophils % (auto) 0.1 %; Eosinophils # (auto) 0.28 K/uL (0-0.5); Eosinophils % (auto) 3.9 %; Hematocrit (blood only) 32.4 % (42-52); Hemoglobin 10.4 g/dL (14.0-18.0); Immature Granulocytes % (auto) 2.8 %; Lymphocytes # (auto) 1.12 K/uL (1.2-3.4); Lymphocytes % (auto) 15.7 %; Mean Corpuscular Hgb Conc 32.1 g/dL (32-36); Mean Corpuscular Volume 96.7 fL (80-100); Mean Platelet Volume 10.7 fL (7.4-10.4); Monocytes # (auto) 0.48 K/uL (0.11-0.59); Monocytes % (auto) 6.7 %; Neutrophils # (auto) 5.05 K/uL (1.4-6.5); Neutrophils % (auto) 70.8 %; Platelet Count 161 K/uL (130-400); RDW Coefficient of Variation 17.6 % (11.5-14.5); RDW Standard Deviation 62.8 fL (36.4-46.3); Red Blood Count 3.35 M/uL (4.7-6.1); White Blood Count 7.14 K/uL (4.8-10.8)
[2018-11-19 09:46] LABS: BUN Creatinine Ratio 23.8 (10-20); Calcium 8.4 mg/dl (8.5-10.1); Creatinine Clr Calc Pharmacy 29.1 ml/min; Est GFR (African American) 27.4; Est GFR (Non-African American) 23.6; Magnesium 2.2 mg/dl (1.8-2.4); Potassium 4.3 mmol/L (3.5-5.1)
--- NOTE | 2018-11-19 11:05 | Hospitalist Progress Note ---
Date of Service November 19, 2018 Assessment & Plan (1) Hyperglycemia: Noted to have blood sugar more than 300 at home He got anxious and came to the emergency room Noted to have hypoxic and hyperkalemia on arrival Admitted to continue management for above condition Blood sugar is better Denies any symptoms Blood sugar is controlled Hemoglobin A1c increased at 8.2 Will adjust Levemir on discharge (2) Hypoxia: History of cardiomyopathy with congestive heart failure and sleep apnea Noted to have hypoxic on arrival Seems to be multifactorial No overt CHF on x-ray and no overt weight gain and/or fluid overload Echocardiogram showed normal left ventricular size with normal all thickness, apical decreased wall movement likely due to pacemaker wire, left atrial dilatation with grade 2 diastolic dysfunction, moderate to severe aortic stenosis, moderate MR, increased right ventricular pressure and LV EF is 50-55% Has been improving with continued management Tourniquet a lot better and will be going home today (3) CKD stage 4 due to type 2 diabetes mellitus: Noted to have hyperkalemia without significant creatinine abnormality Received Kayexalate and other measures to improve potassium Potassium has been 5.0 this morning Potassium has been normalized to less than 5 (4) Atrial fibrillation: Heart rate is controlled now Has permanent pacemaker Continue current medications (5) Hyperkalemia: As above Low potassium diet (6) Ischemic cardiomyopathy: No acute cardiac symptoms but mentions to have increasing leg swelling Chest x-ray did not show any acute CHF. Recent echo showed EF has been improving . Ultrasound of the legs no DVT We will continue current medications and Lasix will be given intravenous Echocardiogram showed normal left ventricular size with normal all thickness, apical decreased wall movement likely due to pacemaker wire, left atrial dilatation with grade 2 diastolic dysfunction, moderate to severe aortic stenosis, moderate MR, increased right ventricular pressure and LV EF is 50-55% Cardiology evaluation-appreciate input and recommendation Lasix 40 mg daily in the morning and every other day in the afternoon (7) Obstructive sleep apnea: He was placed on CPAP which the patient broke 2 weeks ago and not using CPAP for last 2 weeks . Social service to help with his CPAP at home. Likely the cause for his low O2 saturation level PT and OT evaluation Likely discharge this afternoon Subjective He is an 83-year-old male with history of diabetes, cardiomyopathy, chronic kidney disease, atrial fibrillation status post pacemaker, hypertension and hyperlipidemia presents with hyperglycemia and found to have hyperkalemia and also hypoxia in emergency room. 11/18 Patient was seen and examined in telemetry unit Has been feeling better and denies any symptoms on admission and since admission Denies any shortness of breath and/or palpitation 11/19 The patient was seen and examined in telemetry unit in presence of the He has been feeling a lot better without any symptoms sitting on a chair Wants to go home today Physical Exam Vital Signs (Past 24 Hours): Last Vital Signs Temp 36.6 C 11/19/18 07:16 Pulse 73 11/19/18 07:16 Resp 17 11/19/18 07:16 BP 121/72 11/19/18 07:16 Pulse Ox 91 11/19/18 07:16 Physical Exam: No apparent distress at rest Constitutional: WD/WN, vitals as above Eyes: PERRL, conjunctivae normal, anicteric sclerae ENMT: external ear and nose normal, oropharynx normal Neck: trachea midline, no thyromegaly Respiratory: normal respiratory effort; no respiratory distress Auscultation: + diminished lung sounds and + crackles (Minimal crackles at the bases); no wheezes Cardiovascular: Rate/Rhythm: + abnormal rate and + abnormal rhythm Heart Sounds: normal S1 and normal S2 Gastrointestinal (Abdomen): normal bowel sounds, soft, nontender, no hepatosplenomegaly Musculoskeletal: No acute arthritis in any joints Neurologic: Alert, awake and oriented x3. Generally weak Results & Data Laboratory Results Short CBC 11/18/18 11/19/18 Range/Units 05:18 09:02 WBC 7.14 (4.8-10.8) K/uL Hgb 10.4 L (14.0-18.0) g/dL Hct 32.4 L (42-52) % Plt Count 161 (130-400) K/uL Hemoglobin A1c 8.2 H (4.5-5.6) % BMP 11/19/18 09:02 Sodium 133 L Potassium 4.3 Chloride 100 Carbon Dioxide 28 BUN 58 H Creatinine 2.45 H Glucose 207 H Calcium 8.4 L Medications Administered Current Inpatient Medications Acetaminophen (Tylenol) 325 mg PO Q6H PRN PRN Reason: Fever Or Pain Stop: 12/17/18 23:17 Acetaminophen (Tylenol) 650 mg PO Q4H PRN PRN Reason: Pain or Fever Stop: 12/17/18 23:17 Amlodipine Besylate (Norvasc) 5 mg PO QAM [facility] Stop: 12/18/18 08:59 Last Admin: 11/19/18 07:47 Dose: 5 mg Documented by: Aspirin (Ecotrin Ectab) 81 mg PO QAM [facility] Stop: 12/18/18 08:59 Last Admin: 11/19/18 07:48 Dose: 81 mg Documented by: Atorvastatin Calcium (Lipitor) 20 mg PO HS [facility] Stop: 12/18/18 20:59 Last Admin: 11/18/18 21:54 Dose: 20 mg Documented by: Calcitriol (Racaltrol) 0.5 mcg PO MoWeFr@0900 [facility] Stop: 12/19/18 08:59 Last Admin: 11/19/18 07:50 Dose: 0.5 mcg Documented by: Carvedilol (Coreg) 12.5 mg PO AMHS [facility] Stop: 12/18/18 08:59 Last Admin: 11/19/18 07:47 Dose: 12.5 mg Documented by: Dextrose (Dextrose 50%) 25 - 50 ml IV UD PRN; Protocol PRN Reason: Hypoglycemia Protocol Stop: 12/17/18 23:44 Folic Acid ([facility]vite) [facility] Stop: 12/18/18 08:59 Last Admin: 11/19/18 07:48 Dose: 5 mg Documented by: Glucagon (Glucagen) 1 mg IM UD PRN; Protocol PRN Reason: Hypoglycemia Protocol Stop: 12/17/18 23:44 Glucose (Glucose 40%) 15 - 30 gm PO UD PRN; Protocol PRN Reason: Hypoglycemia Protocol Stop: 12/17/18 23:44 Glucose (Dex4 Glucose) 4 - 8 tabs PO UD PRN; Protocol PRN Reason: Hypoglycemia Protocol Stop: 12/17/18 23:44 Heparin Sodium (Porcine) (Heparin Sodium (Porcine)) 5,000 units SQ Q8 [facility] Stop: 12/18/18 05:59 Last Admin: 11/19/18 06:31 Dose: 5,000 units Documented by: Furosemide 40 mg/ Syringe 4 mls @ 4 mls/min IV BID17 [facility] Stop: 12/18/18 08:59 Last Admin: 11/19/18 07:54 Dose: 4 mls/min Documented by: Insulin Aspart (Novolog Flexpen) 0 units SC ACHS [facility]; Protocol Stop: 12/18/18 07:29 Last Admin: 11/19/18 07:51 Dose: 5 units Documented by: Insulin Glargine (Lantus Solostar Pen) 10 units SC BID [facility] Stop: 12/18/18 08:59 Last Admin: 11/19/18 07:51 Dose: 10 units Documented by: Miscellaneous (Carbohydrates For Hypoglycemia) 15 - 30 gm PO UD PRN PRN Reason: Hypoglycemia Treatment Stop: 12/17/18 23:44 Miscellaneous Information (Consult Glycemic Management Pharmacy) 1 ea N/A UD PRN PRN Reason: Consult Stop: 12/17/18 23:25 Nitroglycerin (Nitrostat) 0.4 mg SL UD PRN PRN Reason: Chest Pain Stop: 12/17/18 23:17 Ondansetron HCl (Zofran) 4 mg IV Q6H PRN PRN Reason: Nausea Stop: 12/17/18 23:17 Polyethylene Glycol (Miralax Powder Packet) [address] [facility] Stop: 12/18/18 08:59 Last Admin: 11/19/18 07:50 Dose: Not Given Documented by: Polyethylene Glycol (Miralax Powder Packet) 17 gm PO DAILY PRN PRN Reason: Constipation Stop: 12/17/18 23:17 Sertraline HCl (Zoloft) [address] [facility] Stop: 12/18/18 08:59 Last Admin: 11/19/18 07:47 Dose: 50 mg Documented by: Spironolactone (Aldactone) 12.[address] [facility] Stop: 12/18/18 08:59 Last Admin: 11/19/18 07:49 Dose: 12.5 mg Documented by: Vitamin D (Vitamin D3) 1,[address] [facility] Stop: 12/18/18 08:59 Last Admin: 11/19/18 07:48 Dose: 1,000 units Documented by: (1) Atrial fibrillation Atrial fibrillation type: chronic Qualified Code(s): I48.2 - Chronic atrial fibrillation
--- NOTE | 2018-11-19 11:26 | Pharmacy Report ---
Pharmacy Glycemic Short Note 2 - Date of Service November 19, 2018 - Glycemic Short BSG Results (Last 24 hours): 11/18/18 11/18/18 11/18/18 11:15 16:31 19:59 Glucose POC Glucose 162 H 107 H 159 H 11/19/18 11/19/18 07:14 09:02 Glucose 207 H POC Glucose 122 H OUTPATIENT ANTIDIABETIC REGIMEN: * Levemir 10 units SQ BID * HbA1c: 8.2% (11/18/18) --> this is an increase from 7.2% 10/02/18 ASSESSMENT: * Mr Wilson is an 83yo diabetic male, admitted with hyperglycemia. * Patient was recently staying at [facility] and insulin doses have been decreased significantly since September. * Patient's is willing to help with measuring insulin doses at home. * Patient received 40 units of insulin yesterday and has had good glycemic control. PLAN FOR INPATIENT GLYCEMIC CONTROL: * Basal insulin * Lantus 10 units SQ BID * Bolus insulin * NovoLog per scale ACHS or Q6hrs while NPO * Goal Range: Low 110 mg/dL - High 140 mg/dL * Correction Factor: 25 mg/dL/unit * Nutritional / Prandial insulin per carb ratio of 1 unit per 8 grams CHO consumed PLAN FOR DISCHARGE: * Patient's A1c is slightly higher than goal would be for an 83yo patient w/ multiple comorbidities (A1c ~7.5-8.0% is probably appropriate). * Given patient's confusion, definitely want to avoid being overly aggressive with diabetic regimen and limit the risk of hypoglycemic episodes. * Based on data from this admission, Levemir 10 units SQ BID is a reasonable basal insulin regimen. * Would recommend adding back short-acting insulin to cover meals. It appears that Novolog 5 units TID with meals would be an appropriate regimen. * Patient will need to follow-up with PCP/life insurance salesperson to adjust regimen as needed after discharge.
--- NOTE | 2018-11-19 16:18 | Cardiology Progress Note ---
Date of Service November 19, 2018 Assessment & Plan (1) CHF exacerbation: some volume overload on initial presentation in the form of LE edema improved diuresed 3L with IV lasix would change back to po now would send home with instructions to take 40mg po QAM and additional 40mg QPM every other day instructed to call CHF clinic with first signs of volume overload ok to d/c to home from cardiac standpoint. (2) T2DM (type 2 diabetes mellitus): improved will obviously defer further management to primary team (3) Atrial fibrillation: rate controlled have had multiple recent outpatient discussions on the topic of anticoagulation will cont to hold at this time until patient is more stable on his feet Subjective Pt seen and examined with his at bedside. States that he feels well and glucose better controlled today. LE edema has resolved. Denies cp, sob, palpitations, lightheadedness or dizziness. Tele reviewed: v-paced with underlying afib, rate controlled Review of Systems All systems reviewed & are unremarkable except as noted in HPI & below Physical Exam Vital Signs (Past 24 Hours): Last Vital Signs Temp 36.5 C 11/19/18 14:44 Pulse 70 11/19/18 14:44 Resp 16 11/19/18 14:44 BP 130/73 11/19/18 14:44 Pulse Ox 96 11/19/18 14:44 Physical Exam: General: Awake, alert and oriented x 3. No acute distress. HEENT: Normocephalic, atraumatic. Pupils equal, round and reactive to light and accommodation. Extraocular muscles are intact. Anicteric sclera. Moist mucous membranes. Neck: No JVD. No bruit. Cardiovascular: irregularly irregular, unable to appreciate murmur, rub or gallop. Pulmonary: Clear to auscultation bilaterally. No rales, rhonchi, or wheezing. Abdomen: Bowel sounds x 4, soft. No rebound, guarding or tenderness. No organomegaly. Extremities: No clubbing, cyanosis or edema. +2 pedal pulses bilaterally. Skin: Warm and dry. (1) CHF exacerbation Heart failure type: unspecified Qualified Code(s): I50.9 - Heart failure, unspecified (2) T2DM (type 2 diabetes mellitus) Diabetes mellitus cement cutter insulin use: with cement cutter use Diabetes mellitus complication status: with kidney complications Diabetes mellitus complication detail: with chronic kidney disease Chronic kidney disease stage: stage 4 (severe) Qualified Code(s): E11.22 - Type 2 diabetes mellitus with diabetic chronic kidney disease; N18.4 - Chronic kidney disease, stage 4 (severe); Z79.4 - [facility] (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 of insulin (3) Atrial fibrillation Atrial fibrillation type: chronic Qualified Code(s): I48.2 - Chronic atrial fibrillation
--- NOTE | 2018-11-20 07:55 | Discharge Summary ---
Date of Service November 20, 2018 Admission HPI Per Admitting Provider DICTATED BY: Tu Carrera MD DATE OF ADMISSION: 11/17/2018 CHIEF COMPLAINT: Hyperglycemia and found to be hypoxic in the ER. HISTORY OF PRESENT ILLNESS: This is an 83-year-old male with past medical history significant for type 2 diabetes, diabetic retinopathy, hyperlipidemia, obstructive sleep apnea, not using CPAP since last 2 weeks because it got broke, chronic atrial fibrillation, sinus node dysfunction status post pacemaker, no longer on Coumadin, chronic kidney disease stage IV, chronic CHF, hypertension, CAD, history of basal cell carcinoma, presents with hyperglycemia at home. The patient lives at home with his . The patient recently was at [facility] for rehab and got discharged home. He walks with the help of a walker. Today, his sugars were running high at home 300-400, so he came to the ER. In the ER, he received a dose of IV insulin and also his potassium was high at 5.6, so he was given calcium gluconate and Kayexalate ,also he was hypoxic on room air at 84% and on 2 liters saturating fine .He thinks his lower extremity edema is somewhat worsened, but he states his weight is remaining stable at home, he checks his weight daily. His Lasix has recently been decreased to 40 mg daily and to take additional dose if gains weight of about 3 pounds in 2 days. Recently also evaluated by Cardiology as outpatient. Received a dose of IV Lasix in ER.We were called for admission because of his hyperglycemia, hyperkalemia and hypoxia. Currently resting comfortably and hemodynamically stable. Denies any headache, no blurred vision, no earache, no runny nose, no sore throat, no difficulty swallowing. Appetite is okay. No chest pain. He is always short of breath since last 2 years from his congestive heart failure. No cough, no fever, no chills, no nausea, no abdominal pain. Normal bowel and bladder movements. No hematuria, no burning micturition. No black stools or hematochezia. Currently, resting comfortably. Admission Exam Per Admitting Provider GENERAL: The patient is obese, not in acute distress. VITAL SIGNS: Temperature 36.4, pulse 60, respiratory rate 24, blood pressure 140/56, oxygen 96% on 2 liters. HEENT: No pallor, no icterus. Pupils equal, round, and reactive. NECK: No JVD. No neck masses, no carotid bruit. CARDIOVASCULAR: S1, S2 heard, regular rate and rhythm, no murmur, no gallop. RESPIRATORY SYSTEM: Normal AP diameter. No accessory muscle use. No wheezing, no crackles. ABDOMEN: Soft, bowel sounds present. Nontender, nondistended. CENTRAL NERVOUS SYSTEM: Cranial nerves II-XII grossly intact. Nonfocal. EXTREMITIES: Lower extremity edema present. Chronic skin changes seen. Principal Diagnosis Uncontrolled diabetes,Acute on Chronic Diastolic Heart failure Discharge Exam Constitutional WD/WN, vitals as above Eyes PERRL, conjunctivae normal, anicteric sclerae ENMT external ear and nose normal, oropharynx normal Neck trachea midline, no thyromegaly Respiratory normal respiratory effort; no respiratory distress Auscultation: + diminished lung sounds and + crackles (Minimal crackles at the bases); no wheezes Cardiovascular Rate/Rhythm: + abnormal rate and + abnormal rhythm Heart Sounds: normal S1 and normal S2 Gastrointestinal (Abdomen) normal bowel sounds, soft, nontender, no hepatosplenomegaly Discharge Data Allergies Allergy/AdvReac Type Severity Reaction Status Date / Time Beta-Blockers Allergy Unknown abd cramps Verified 11/17/18 20:17 (Beta-Adrenergic Bloc zolpidem AdvReac Intermediate confusion Unverified 11/17/18 20:17 mometasone furoate AdvReac Unknown DISORIENTED Unverified 11/17/18 20:17 Consultations 11/17/18 20:05 ED Decision to Admit Stat 11/17/18 23:18 Consult Case Management - Discharge Planning Routine 11/18/18 08:00 Consult Cardiology Routine Ordered Studies 11/18/18 06:59 US venous doppler [facility] Urgent Hospital Course (1) Hyperglycemia: Noted to have blood sugar more than 300 at home He got anxious and came to the emergency room Noted to have hypoxic and hyperkalemia on arrival Admitted to continue management for above condition Blood sugar is better Denies any symptoms Blood sugar is controlled Hemoglobin A1c increased at 8.2 Will adjust Levemir on discharge (2) Hypoxia: History of cardiomyopathy with congestive heart failure and sleep apnea Noted to have hypoxic on arrival Seems to be multifactorial No overt CHF on x-ray and no overt weight gain and/or fluid overload Echocardiogram showed normal left ventricular size with normal all thickness, apical decreased wall movement likely due to pacemaker wire, left atrial dilatation with grade 2 diastolic dysfunction, moderate to severe aortic stenosis, moderate MR, increased right ventricular pressure and LV EF is 50-55% Has been improving with continued management Tourniquet a lot better and will be going home today (3) CKD stage 4 due to type 2 diabetes mellitus: Noted to have hyperkalemia without significant creatinine abnormality Received Kayexalate and other measures to improve potassium Potassium has been 5.0 this morning Potassium has been normalized to less than 5 (4) Atrial fibrillation: Heart rate is controlled now Has permanent pacemaker Continue current medications (5) Hyperkalemia: As above Low potassium diet (6) Ischemic cardiomyopathy: No acute cardiac symptoms but mentions to have increasing leg swelling Chest x-ray did not show any acute CHF. Recent echo showed EF has been improving . Ultrasound of the legs no DVT We will continue current medications and Lasix will be given intravenous Echocardiogram showed normal left ventricular size with normal all thickness, apical decreased wall movement likely due to pacemaker wire, left atrial dilatation with grade 2 diastolic dysfunction, moderate to severe aortic stenosis, moderate MR, increased right ventricular pressure and LV EF is 50-55% Cardiology evaluation-appreciate input and recommendation Lasix 40 mg daily in the morning and every other day in the afternoon (7) Obstructive sleep apnea: He was placed on CPAP which the patient broke 2 weeks ago and not using CPAP for last 2 weeks . Social service to help with his CPAP at home. Likely the cause for his low O2 saturation level PT and OT evaluation Likely discharge this afternoon Total Time Total Time Spent Total Time Spent (In Minutes): 35 minutes Total Time Includes: Examination of the Patient, Discharge Planning, Medication Reconciliation and Communication With Other Providers Discharge Plan Discharge Items Patient Disposition: Home - Self-Care Reason For Visit: HYPERGLYCEMIA Discharge Diagnosis: Uncontrolled diabetes,Acute on Chronic Diastolic Heart failure Discharge Goals: Decrease discomfort, Improve function and Increase independence Activity: Resume your previous activity Non-emergency contact: Primary Care Provider Call non-emergency contact if: you have any medication questions and your symptoms worsen Follow-up/Referrals: Hilaroi Yoon MD [Primary Care Provider] - 11/21/18 10:45 am Diet: Carb Consistent or DM2 and Heart Healthy Fluids: 1800ml (7 cups) Addtl Provider Instructions: Please take precaution to avoid falls Prescriptions: New Novolog Flexpen U-100 Insulin 100 unit/mL Insulin Pen 5 unit SC TIDM 30 Days Qty: 1 RF: 0 Continued carvedilol 12.5 mg tablet 12.5 mg PO AMHS RF: 0 amlodipine 5 mg tablet 5 mg PO QAM RF: 0 aspirin [Aspir-81] 81 mg Tablet,Delayed Release (Dr/Ec) 81 mg PO QAM RF: 0 spironolactone 25 mg tablet 12.5 mg PO QAM RF: 0 folic acid 1 mg tablet 5 tab PO QAM RF: 0 cholecalciferol (vitamin D3) [Vitamin D3] 1,000 unit Capsule 1,000 unit PO QAM RF: 0 atorvastatin 20 mg Tablet 20 mg PO HS RF: 0 calcitriol 0.5 mcg Capsule 0.5 mcg PO MOWEFR RF: 0 acetaminophen [Tylenol] 325 mg Tablet 325 mg PO Q6H PRN (Reason: Fever Or Pain) RF: 0 polyethylene glycol 3350 [Miralax] 17 gram Powder In Packet 17 g PO QAM RF: 0 sertraline 50 mg tablet 50 mg PO QAM RF: 0 Changed furosemide 40 mg tablet 40 mg PO UD Qty: 0 RF: 0 Levemir FlexTouch U-100 Insuln 100 unit/mL (3 mL) insulin pen 10 units subcut BID Qty: 0 RF: 0 Stand-Alone Forms: [facility] Discharge Orders: Discharge Order (Routine); Ordered 11/19/18 Ordered By: Chapo Fuentes Admission Data Admit Date/Time: 11/17/18 21:51 Attending Provider: Chapo Fuentes Admit Provider: Tu Carrera Primary Care Provider: Hilario Yoon Other Providers: Tu Carrera ; Zack Rhoades ; Edgard Anderson ; Baldemar Lazo ; Anant Prather ; Williams Ruiz ; Devan Blackmon ; Darcy Billingsley ; Jennifer Shell Service: Telemetry Other Interventions: Discharge Summary Assessment (RN) Last Done: 11/19/18 14:44 DC Date/Time DO NOT enter until pt leaves facility: 11/19/18 15:05
== END 2018-11-19 15:05 | disposition home or self-care (01) ==
LOC: ED 18:47 → 2S 21:51